=== PATIENT | male | born 1980 | race Caucasian/White ===

== ENCOUNTER 2022-10-28 22:21 | Emergency (ER) | payer BC, SELFPAY ==
--- NOTE | ~2022-10-28 | XR_ITS ---
EXAMINATION: XR chest 2V DATE: 10/28/2022 22:40 INDICATION: Vomiting TECHNIQUE: PA and lateral views of the chest were obtained. COMPARISON: Chest radiograph dated 08/22/2018 FINDINGS: The lungs are clear with no focal airspace opacities, pulmonary edema, pleural effusion or pneumothor ax. The cardiomediastinal silhouette is normal. Visualized bones and soft tissues are unremarkable. IMPRESSION: 1. No acute cardiopulmonary disease. Reviewed, dictated and finalized at location A.
--- NOTE | ~2022-10-28 | CT_ITS ---
EXAMINATION: CT abdomen pelvis w con DATE: 10/29/2022 03:01 INDICATION: Abdominal pain. TECHNIQUE: Computed tomography (CT) of the abdomen and pelvis was performed with 100 mL Omnipaque 350 intravenous contrast. Automated exposure control and iterative reconstruction technique were employe d. The dose-length product was 1148.34 mGy-cm. COMPARISON: None. FINDINGS: The visualized portions of the lung bases demonstrate mild atelectasis. No pleural effusion . The heart size is normal. There are coronary artery calcifications. There is an old infarct in left ventricle of the heart in the expected distribution of left anterior descending coronary artery. The liver and spleen are normal. There is a 6 mm benign polyp versus gallstone in the gallbladder, which is normal in size. The pancreas, adrenal glands, and kidneys are normal. There are no dilated loops of bowel. The appendix is normal. There are no pathologically enlarged lymph nodes. There is no free intraperitoneal fluid. There is mild thoracic spondylosis and moderate lower lumbar spondylosis. IMPRESSION: 1. No specific etiology for the patient's symptoms. 2. 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 Reviewed, dictated and finalized at location A. IMPRESSION: 1. No specific etiology for the patient's symptoms. 2. Old infarct in left ventricle of the heart in the expected distribution of l eft anterior descending coronary.
--- NOTE | 2022-10-28 22:22 | ECG_ITS ---
Measurements Intervals [place] Rate: 94 P: 22 AL: 171 QRS: 34 QRSD: 86 T: 63 QT: 331 QTc: 414 Interpretive Statements SINUS RHYTHM POSSIBLE LEFT ATRIAL ENLARGEMENT [-0.1mV P-WAVE IN V1/V2] EVIDENCE OF PREVIOUS ANTERIOR INFARCTION ABNORMAL ECG NO PREVIOUS ECG AVAILABLE FOR COMPARISON Electronically Signed On 10-29-2022 14:42:10 CDT by Blaze Davis M.D.
[2022-10-28 22:39] LABS: Basophils Absolute Auto 0.1 K/mm3 (0.0-0.1); Basophils Percent Auto 0.8 % (0.2-1.2); Eosinophils Absolute Auto 0.1 K/mm3 (0-0.3); Eosinophils Percent Auto 0.9 % (0-4.4); Hematocrit 42.6 % (42.0-52.0); Hemoglobin 15.1 g/dL (14.0-18.0); Immature Granulocyte Absolute 0.05 K/mm3 (0.00-0.031); Immature Granulocyte Percent A 0.4 % (0-0.5); Lymphocytes Absolute Auto 3.62 K/mm3 (0.9-3.2); Lymphocytes Percent Auto 26.8 % (18.3-44.2); Mean Corpuscular HGB Conc 35.4 g/dl (32-36); Mean Corpuscular Volume 84.5 fl (80-100); Mean Platelet Volume 11.5 fl (7.4-10.4); Monocytes Percent Auto 7.1 % (2.6-8.5); Neutrophils Absolute Auto 8.6 K/mm3 (1.3-6.7); Platelet Count Result 270 k/mm3 (150-375); Red Blood Count 5.04 M/mm3 (4.6-6.20); Red Cell Distribution Width 12.9 % (11.5-14.5); White Blood Count 13.5 K/mm3 (4.5-10.0)
[2022-10-28 22:42] VITALS: BP 137/98; PULSE 94; RESP 16; TEMP 36.2; O2SAT 96
[2022-10-28 22:54] LABS: Partial Thromboplastin Time 25.2 SECONDS (22.3-36.8); Prothrombin Time 13.1 Seconds (11.1-14.7)
[2022-10-28 22:59] LABS: Alanine Aminotransferase 29 U/L (6-50); Albumin Level 4.1 g/dL (3.5-5.1); Alkaline Phosphatase 95 U/L (38-126); Anion Gap 6 mmol/L (8-16); Aspartate Amino Transferase 33 U/L (17-59); Bilirubin,Total 0.6 mg/dL (0.2-1.3); Blood Urea Nitrogen 23 mg/dL (9-20); Calcium 8.6 mg/dL (8.4-10.2); Carbon Dioxide 23 mmol/L (22-30); Chloride 100 mmol/L (98-107); Estimated CRCL calculation 102 ml/min; Estimated Glomerular Filt Rate > 60; Glucose 444 mg/dL (65-110); Lipase 138 U/L (23-300); Potassium 4.1 mmol/L (3.4-5.0); Sodium 129 mmol/L (137-145); Troponin I < 0.012 ng/mL (0.000-0.034)
[2022-10-29] VITALS (21 sets, daily range): BP systolic 128–139; BP diastolic 77–89; PULSE 80–90; RESP 13–23; TEMP 36.7; O2SAT 92–99
--- NOTE | 2022-10-29 02:30 | ED.ABDPAIN ---
HPI - Abdominal Pain General Chief Complaint: Abdominal Pain Stated Complaint: abd pain Time Seen by Provider: 10/29/22 02:02 History of Present Illness HPI narrative: 42-year-old male with history of coronary disease presented the emergency department for evaluation of epigastric abdominal pain. Patient reports the pain started approximately 5 hours ago and last about an hour. Patient was driving when the pain started. Patient states this did cause him to have some nausea and vomiting. Nausea and vomiting did not improve the pain. Patient denies any radiation of the pain to his back jaw or arms. Patient denies any pain at this time. Patient reports approximate 4 years ago he had a heart attack and does have stents in place Related Data Home Medications Medication Instructions Recorded Confirmed aspirin 81 mg tablet,delayed 81 mg PO DAILY 01/17/19 01/08/22 release (Adult Aspirin Regimen) ticagrelor 90 mg tablet (Brilinta) 90 mg PO BID 01/17/19 01/08/22 sacubitril 49 mg-valsartan 51 mg 1 tablet PO BID 01/22/19 01/08/22 tablet (Entresto) Allergies Allergy/AdvReac Type Severity Reaction Status Date / Time No Known Allergies Allergy Verified 10/28/22 22:44 Review of Systems Review of Systems: All systems reviewed & are unremarkable except as noted in HPI and below PMFSH Past Medical History Medical History (Updated 10/30/22 @ 00:00 by Jennifer Jennings) Broken wrist CHF (congestive heart failure) Coronary stent patent Hyperlipidemia Hypertension Obesity Type 2 diabetes mellitus Surgical History Surgical History Coronary angioplasty status History of toe surgery Family History Family History Father Diabetes mellitus Hypertension Family history of cardiovascular disease Family history of coronary artery disease Mother Diabetes mellitus Hypertension Family history of cardiovascular disease Family history of coronary artery disease Father Heart disease Mother Heart disease Social History Social History (Updated 01/08/22 @ 11:01 by Keshia Adhikari PA-C) Smoking status: Current some day smoker Tobacco type: cigars Second hand tobacco smoke exposure: Yes Additional smoking assessment comments: Patient stated he only smokes this selin once in a while. Alcohol intake: current Alcohol use details: Patient stated drinks only on occasion. Substance use: never Substance use type: does not use Lack of Transportation: No Lack of Food: Never True Current Housing: I Have Housing Concerned About Future Housing: No Difficulty Paying Gas/Electric Bills: No Difficulty Paying for Meds: No Currently Unemployed: No Education: High School Diploma/GED Difficulty w/ Childcare or Family Care: No Living arrangements: with family Exam Narrative: APPEARANCE: Well appearing, no pain, no distress, well-nourished. HEAD: normocephalic, atraumatic. EYES: PERRLA/EOMI, conjunctivae clear. NOSE: Normal no drainage EARS:TMS clear with good light reflex. THROAT: Pharynx clear, no exudate. NECK: Supple. No adenopathy, no masses. RESPIRATORY: Airway patent, respirations nonlabored. Clear to auscultation bilaterally, no rales, rhonchi, wheezing. CARDIOVASCULAR: Regular rate and rhythm without murmurs rubs or gallops. ABDOMINAL: Soft, nontender, nondistended, normal bowel sounds MUSCULOSKELETAL: Moves all extremities. Strength/ROM intact, No edema, No calf tenderness. NEURO: Alert. Cranial nerves II through XII intact. Grossly intact SKIN: Warm, dry. Normal Color Course Course Emergency Course: 42-year-old male presented the ED for evaluation of epigastric pain. Patient was afebrile with no leukocytosis. Patient's troponin was not elevated. Patient had no significant abnormalities on his CMP. Patient was hyperglycemic and hyponatremic. Patient was
[2022-10-29 02:51] LABS: Troponin I < 0.012 ng/mL (0.000-0.034)
[2022-10-29] MEDS: LACTATED RINGERS 1,000 ML 999 ML IV CONT (03:13)
[2022-10-29 06:01] LABS: Glucose Point of Care 320 mg/dl (65-105)
[2022-10-29] MEDS: INSULIN HUMAN REGULAR (*BKC) 100 UNITS/ML IV PUSH (06:02)
== END 2022-10-29 06:40 | disposition home or self-care (01) ==
PROVIDERS: Emergency Provider Emergency Medicine; PCP Family Medicine
DX: R10.13 Epigastric pain (principal); I25.10 Atherosclerotic heart disease of native coronary artery without angina pectoris; I25.2 Old myocardial infarction; I50.9 Heart failure, unspecified; I11.0 Hypertensive heart disease with heart failure; E11.9 Type 2 diabetes mellitus without complications; E78.5 Hyperlipidemia, unspecified; E66.9 Obesity, unspecified; Z68.35 Body mass index [BMI] 35.0-35.9, adult; F17.290 Nicotine dependence, other tobacco product, uncomplicated; Z95.5 Presence of coronary angioplasty implant and graft; R94.31 Abnormal electrocardiogram [ECG] [EKG]; Z79.4 Long term (current) use of insulin; Z79.84 Long term (current) use of oral hypoglycemic drugs; Z79.82 Long term (current) use of aspirin
CPT/HCPCS: 36415; 71046; 74177; 80053; 82948; 83690; 84484; 85025; 85610; 85730; 93005; 96361; 96374; 99284; J1815; J7120; Q9967

== ENCOUNTER 2023-09-02 14:08 | Outpatient (CLI) | payer BC, SELFPAY ==
[2023-09-02 14:37] LABS: Basophils Absolute Auto 0.1 K/mm3 (0.0-0.1); Basophils Percent Auto 0.6 % (0.2-1.2); Eosinophils Absolute Auto 0.1 K/mm3 (0-0.3); Eosinophils Percent Auto 1.2 % (0-4.4); Hematocrit 38.5 % (42.0-52.0); Hemoglobin 13.1 g/dL (14.0-18.0); Immature Granulocyte Absolute 0.02 K/mm3 (0.00-0.031); Immature Granulocyte Percent A 0.2 % (0-0.5); Lymphocytes Absolute Auto 3.08 K/mm3 (0.9-3.2); Lymphocytes Percent Auto 37.6 % (18.3-44.2); Mean Corpuscular Hemoglobin 29.5 pg (26-34); Mean Corpuscular Volume 86.7 fl (80-100); Mean Platelet Volume 11.7 fl (7.4-10.4); Monocytes Absolute Auto 0.8 K/mm3 (0.1-0.6); Monocytes Percent Auto 9.5 % (2.6-8.5); Neutrophils Absolute Auto 4.2 K/mm3 (1.3-6.7); Neutrophils Percent Auto 50.9 % (45.5-73.1); Platelet Count Result 216 k/mm3 (150-375); Red Blood Count 4.44 M/mm3 (4.6-6.20); Red Cell Distribution Width 12.7 % (11.5-14.5); White Blood Count 8.2 K/mm3 (4.5-10.0)
[2023-09-02 14:52] LABS: Alanine Aminotransferase 18 U/L (6-50); Albumin Level 3.9 g/dL (3.5-5.1); Alkaline Phosphatase 65 U/L (38-126); Anion Gap 7 mmol/L (4-12); Aspartate Amino Transferase 24 U/L (17-59); Bilirubin,Total 0.6 mg/dL (0.2-1.3); Blood Urea Nitrogen 31 mg/dL (9-20); Calcium 8.5 mg/dL (8.4-10.2); Carbon Dioxide 23 mmol/L (22-30); Chloride 111 mmol/L (98-107); Cholesterol 131 mg/dL (0-200); Estimated Glomerular Filt Rate > 60; Glucose 237 mg/dL (65-110); HDL Direct 30 mg/dL; Potassium 4.2 mmol/L (3.4-5.0); Sodium 141 mmol/L (137-145); Triglycerides 197 mg/dL (<150)
[2023-09-02 14:53] LABS: Hemoglobin A1C 10.5 % (<5.7)
[2023-09-02 15:03] LABS: Creatinine Urine 168.7 mg/dL
[2023-09-02 15:03] LABS: LDL Cholesterol Direct 83 mg/dL
[2023-09-02 15:54] LABS: MALB Creatinine Ratio 566.2 mg/g (0-30)
== END 2023-09-02 14:09 | disposition home or self-care (01) ==
LOC: ANHLAB 14:09
PROVIDERS: PCP Family Medicine; Visit Provider Student in an Organized Health Care Education/Training Program
DX: E11.9 Type 2 diabetes mellitus without complications (principal); E78.5 Hyperlipidemia, unspecified
CPT/HCPCS: 36415; 80053; 80061; 82043; 83036; 85025

== ENCOUNTER 2023-10-13 09:23 | Outpatient (CLI) | payer BC, SELFPAY ==
[2023-10-13 10:30] LABS: Basophils Absolute Auto 0.1 K/mm3 (0.0-0.1); Basophils Percent Auto 0.8 % (0.2-1.2); Eosinophils Absolute Auto 0.1 K/mm3 (0-0.3); Eosinophils Percent Auto 1.1 % (0-4.4); Hematocrit 40.6 % (42.0-52.0); Hemoglobin 13.4 g/dL (14.0-18.0); Immature Granulocyte Absolute 0.03 K/mm3 (0.00-0.031); Immature Granulocyte Percent A 0.3 % (0-0.5); Lymphocytes Absolute Auto 2.63 K/mm3 (0.9-3.2); Lymphocytes Percent Auto 29.8 % (18.3-44.2); Mean Corpuscular Hemoglobin 28.9 pg (26-34); Mean Corpuscular Volume 87.5 fl (80-100); Mean Platelet Volume 10.8 fl (7.4-10.4); Monocytes Absolute Auto 0.8 K/mm3 (0.1-0.6); Monocytes Percent Auto 9.2 % (2.6-8.5); Neutrophils Absolute Auto 5.2 K/mm3 (1.3-6.7); Neutrophils Percent Auto 58.8 % (45.5-73.1); Platelet Count Result 311 k/mm3 (150-375); Red Blood Count 4.64 M/mm3 (4.6-6.20); Red Cell Distribution Width 13.3 % (11.5-14.5); White Blood Count 8.8 K/mm3 (4.5-10.0)
[2023-10-13 10:54] LABS: Alanine Aminotransferase 27 U/L (6-50); Albumin Level 3.9 g/dL (3.5-5.1); Alkaline Phosphatase 64 U/L (38-126); Anion Gap 13 mmol/L (4-12); Aspartate Amino Transferase 33 U/L (17-59); Bilirubin,Total 0.6 mg/dL (0.2-1.3); Blood Urea Nitrogen 33 mg/dL (9-20); Carbon Dioxide 19 mmol/L (22-30); Chloride 110 mmol/L (98-107); Estimated Glomerular Filt Rate > 60; Glucose 63 mg/dL (65-110); Lipase 264 U/L (23-300); Potassium 4.2 mmol/L (3.4-5.0); Sodium 142 mmol/L (137-145)
== END 2023-10-13 09:24 | disposition home or self-care (01) ==
LOC: ANHLAB 09:24
PROVIDERS: PCP Family Medicine; Visit Provider Student in an Organized Health Care Education/Training Program
DX: R10.13 Epigastric pain (principal); E11.9 Type 2 diabetes mellitus without complications; I10 Essential (primary) hypertension; R19.7 Diarrhea, unspecified; R53.83 Other fatigue
CPT/HCPCS: 36415; 80053; 83690; 85025

== ENCOUNTER 2024-04-29 23:19 | Emergency (ER) | payer BC, SELFPAY ==
--- NOTE | ~2024-04-29 | XR_ITS ---
Clinical Indication: Shortness of breath PA and lateral views of the chest: Comparison: 10/28/2022 Findings: There are small right pleural effusion with mild bibasilar pulmonary edema.. Cardiomediast inal silhouette is within normal limits. Bones and soft tissues are unremarkable. Impression: Small right pleural effusion with mild bibasilar pulmonary edema. Reviewed, dictated and finalized at location . STERED TRAVEL NURSE Impression: Small right pleural effusion with mild bibasilar pulmonary edema.
--- OUTSIDE RECORDS SUMMARY | 2024-04-29 23:23 | XMS_ITS | Clinical Summary ---
Author Organization [facility] [address] Address [address] [place] [address] Care Team Providers Care Scientific Systems Analyst Name Role Phone Ynes Azul MD Primary Care Provider [phone]- [phone] Allergies Active Allergy Reactions Criticality Noted Date Comments Alirocumab Rash Medium 06/25/2019 Medications glimepiride (AMARYL) 4 mg tabletIndications: type 2 diabetes mellitus TK 2 TS DAILY 0 9 Active metFORMIN (GLUCOPHAGE) 500 mg tablet TK 2 TS PO QD WITH THE MORNING AND DEE MEAL 0 9 Active sildenafil (VIAGRA) 100 mg tablet TK 1 T PO D PRN 5 9 Active insulin glargine (LANTUS,BASAGLAR) 100 unit/mL (3 mL) insulin pen Inject 50 Units under the skin daily Active aspirin (ENTERIC COATED ASPIRIN) 81 mg enteric coated tablet Take 1 tablet (81 mg total) by mouth daily 9 Active atorvastatin (LIPITOR) 80 mg tablet TAKE 1 TABLET(80 MG) BY MOUTH DAILY 90 tablet 1 2 Active spironolactone (ALDACTONE) 25 mg tablet TAKE 1 TABLET(25 MG) BY MOUTH DAILY 90 tablet 2 2 Active metoprolol XL (TOPROL-XL) 100 mg 24 hr tabletIndications: Ischemic cardiomyopathy Take 1 tablet (100 mg total) by mouth daily 90 tablet 1 2 Active icosapent ethyL (VASCEPA) 1 gram capsule Take 2 capsules (2 g total) by mouth 2 (two) times a day 120 capsule 11 3 Active ezetimibe (ZETIA) 10 mg tablet TAKE 1 TABLET BY MOUTH EVERY DAY AT NIGHT 30 tablet 11 4 Active losartan (COZAAR) 100 mg tablet Take 1 tablet (100 mg total) by mouth daily 30 tablet 2 5 Active losartan (COZAAR) 100 mg tablet TAKE 1 TABLET BY MOUTH EVERY DAY 30 tablet 2 4 025 Discontin ued(Reord er) Active Problems No known active problems Encounters Date Type Department Care Team Description 04/25/2024 1:30 PM CANVAS BASTER Office Visit [facility] Cardiology [address] [place] [address] Duarte Tavarez MD NEGRON (dyspnea on exertion) (Primary Dx); Coronary artery disease involving [place] coronary artery of [place] heart without angina pectoris; History of ST elevation myocardial infarction; Status post angioplasty with stent; Ischemic cardiomyopathy; Exposure to dust 04/23/2024 Telephone [facility] Cardiology [address] [place] [address] Duarte Tavarez MD Leg Swelling; Foot Swelling; Shortness of Breath from Last 3 Months Medical History Medical History Date Comments Hypertension Diabetes mellitus (HCC) Family History Relation Name Status Comments Father (Age 48) Mother Alive Social History Tobacco Use Types Packs/Day Years Used Date Smoking Tobacco: Never Smokeless Tobacco: Never Tobacco Cessation:Counseling Given: Not Answered Sex and Gender Information Value Date Recorded Sex Assigned at Not on file Legal Sex Male 7:09 PM CANVAS BASTER Gender Identity Not on file Sexual Orientation Not on file Obstetrics History Last Filed Vital Signs Vital Sign Reading Time Taken Comments Blood Pressure 132/84 04/25/2024 1:08 PM CANVAS BASTER Pulse 77 04/25/2024 1:08 PM CANVAS BASTER Temperature - - Respiratory Rate 16 06/14/2022 7:59 AM CDT Oxygen Saturation 93% 04/25/2024 1:08 PM CANVAS BASTER Inhaled Oxygen Concentration - - Weight 96.2 kg (212 lb) 04/25/2024 1:08 PM CANVAS BASTER Height 160 cm (5' 3 ) 04/25/2024 1:08 PM CANVAS BASTER Body Mass Index 37.55 04/25/2024 1:08 PM CANVAS BASTER Plan of Treatment Health Maintenance Due Date Last Done Comments Colon Cancer Screening-Colonoscopy 1978 Depression Screening 1978 Hepatitis C Screening 1978 DTaP/Tdap/Td Vaccine (1 - Tdap) 1989 Hepatitis B Screening 02/03/1996 Regular Well Visit/Exam 18-64 02/03/1996 Influenza Vaccine (#1) 2023 HPV Vaccines Aged Out No longer eligi ble based on patient's age to complete this topic Pneumococcal vaccine <65 Aged Out No longer eligible based on patient's age to complete this topic [place] Care Teams Scientific Systems Analyst Relationship Specialty Start Date End Date Ynes Azul MD PCP - General Family Practice 2/21/19
--- OUTSIDE RECORDS SUMMARY | 2024-04-29 23:23 | XMS_ITS | Referral Summary ---
Author Organization [place] [address] [address] [place] [address] [address] [place] [address] Care Team Providers Care Climatology Teacher Name Role Phone Ynes Azul MD Primary Care Provider +1- [phone] Encounters Date Type Department Care Team Description 04/25/2024 1:30 PM SERVICE CENTER COORDINATOR Office Visit [facility] Cardiology [address] [place] [address] [address] [place] [address] Duarte Tavarez MD NEGRON (dyspnea on exertion) (Primary Dx); Coronary artery disease involving [place] coronary artery of [place] heart without angina pectoris; History of ST elevation myocardial infarction; Status post angioplasty with stent; Ischemic cardiomyopathy; Exposure to dust 04/23/2024 Telephone [facility] Cardiology [address] [place] [address] [address] [place] [address] Duarte Tavarez MD Leg Swelling; Foot Swelling; Shortness of Breath from Last 3 Months Allergies Active Allergy Reactions Criticality Noted Date [...] er) Active Problems No known active problems Social History Tobacco Use Types Packs/Day Years Used Date Smoking Tobacco: Never Smokeless Tobacco: Never Tobacco Cessation:Counseling Given: Not Answered Sex and Gender Information Value Date Recorded Sex Assigned at Not on file Legal Sex Male 7:09 PM SERVICE CENTER COORDINATOR Gender Identity Not on file Sexual Orientation Not on file Last Filed Vital Signs Vital Sign Reading Time Taken Comments Blood Pressure 132/84 04/25/2024 1:08 PM SERVICE CENTER COORDINATOR Pulse 77 04/25/2024 1:08 PM SERVICE CENTER COORDINATOR Temperature - - Respiratory Rate 16 06/14/2022 7:59 AM CDT Oxygen Saturation 93% 04/25/2024 1:08 PM SERVICE CENTER COORDINATOR Inhaled Oxygen Concentration - - Weight 96.2 kg (212 lb) 04/25/2024 1:08 PM SERVICE CENTER COORDINATOR Height 160 cm (5' 3 ) 04/25/2024 1:08 PM SERVICE CENTER COORDINATOR Body Mass Index 37.55 04/25/2024 1:08 PM SERVICE CENTER COORDINATOR Plan of Treatment Not on file Insurance [place]ESS [place] Member Subscriber Plan / Payer ( fective 2010-Present) Name:Malcolm Lynne Relation to Subscriber:Self Name:Leroy Lynnehien Armstrong Payer ID:[id number] (NAIC) Type:BC OTHER Address: [address] [place] [id number] Care Teams Climatology Teacher Relationship Specialty Start Date End Date Ynes Azul MD PCP - General Family Practice 04/27/18
--- OUTSIDE RECORDS SUMMARY | 2024-04-29 23:23 | XMS_ITS | Encounter Summary ---
Author Organization [facility] Address [address] [place] [address] Care Team Providers Care Campaign Specialist Name Role Phone Ynes Azul MD Primary Care Provider +1- [phone] Reason for Visit * Reason Onset Date Comments Leg Swelling 04/23/2024 Foot Swelling 04/23/2024 Shortness of Breath 04/23/2024 Encounter Details Date Type Department Care Team (Late st Contact Info) Description 04/23/2024 Telephone [facility] Cardiology [address] [place] [address] Duarte Tavarez MD [address] [id number] Leg Swelling; Foot Swelling; Shortness of Breath Social History Tobacco Use Types Packs/Day Years Used Date Smoking Tobacco: Never Smokeless Tobacco: Never Sex and Gender Information Value Date Recorded Sex Assigned at Not on file Legal Sex Male 7:09 PM MANUFACTURING JOB TITLES Gender Identity Not on file Sexual Orientation Not on file documented as of this encounter Miscellaneous Notes * Telephone Encounter - Ne Mendoza RN - 04/23/2024 2:38 PM MANUFACTURING JOB TITLES Spoke with pt, he has noticed some swelling in his legs and some SOB with exertion for the last fewweeks. Pt is not having any CP or any other concerns at this time. Pt has missed his last few appt and was last seen on 06/2022. Scheduled pt to see DK this week 04/25. FACTURING JOB TITLES * Telephone Encounter - Liliane Viveros - 04/23/2024 2:24 PM CST Pt states that for the past few weeks he has been experiencing edema in his lower extremities. States that he is also experiencing some SOB. Requesting a call back. Please advise. Thank you. Contact [phone] FACTURING JOB TITLES documented in this encounter Plan of Treatment Not on file documented as of this encounter Visit Diagnoses Not on filedocumented in this encounter Care Teams Campaign Specialist Relationship Specialty Start Date End Date Ynes Azul MD PCP - General Family Practice 04/27/18 documented as of this encounter
[2024-04-29 23:29] VITALS: BP 159/92; PULSE 84; RESP 20; TEMP 36.3; O2SAT 92
--- NOTE | 2024-04-29 23:29 | ECG_ITS ---
Test Date: 2024-04-29 23:38:08 Measurements Intervals [place] Rate: 82 P: 22 [place]: 167 QRS: 55 QRSD: 96 T: 68 QT: 361 QTc: 423 Interpretive Statements SINUS RHYTHM POSSIBLE LEFT ATRIAL ENLARGEMENT CONSIDER ANTERIOR INFARCT, AGE INDETERMINATE BORDERLINE T WAVE ABNORMALITY- HIGH LATERAL LEADS BASELINE ARTIFACT- I, III, AVL ABNORMAL ECG No previous ECG available for comparison Electronically Signed On 04-30-2024 06:47:07 PILE DRIVER OPERATOR [employer]GE M[employer] by Surinder Castro D.O.
[2024-04-29 23:46] LABS: Basophils Absolute Auto 0.1 K/mm3 (0.0-0.1); Basophils Percent Auto 0.8 % (0.2-1.2); Eosinophils Absolute Auto 0.2 K/mm3 (0-0.3); Eosinophils Percent Auto 3.4 % (0-4.4); Hematocrit 38.7 % (42.0-52.0); Hemoglobin 13.2 g/dL (14.0-18.0); Immature Granulocyte Absolute 0.01 K/mm3 (0.00-0.031); Immature Granulocyte Percent A 0.2 % (0-0.5); Lymphocytes Absolute Auto 2.26 K/mm3 (0.9-3.2); Lymphocytes Percent Auto 38.2 % (18.3-44.2); Mean Corpuscular HGB Conc 34.1 g/dl (32-36); Mean Corpuscular Hemoglobin 29.4 pg (26-34); Mean Corpuscular Volume 86.2 fl (80-100); Mean Platelet Volume 11.5 fl (7.4-10.4); Monocytes Absolute Auto 0.5 K/mm3 (0.1-0.6); Monocytes Percent Auto 8.6 % (2.6-8.5); Neutrophils Absolute Auto 2.9 K/mm3 (1.3-6.7); Neutrophils Percent Auto 48.8 % (45.5-73.1); Platelet Count Result 214 k/mm3 (150-375); Red Blood Count 4.49 M/mm3 (4.6-6.20); Red Cell Distribution Width 13.6 % (11.5-14.5); White Blood Count 5.9 K/mm3 (4.5-10.0)
[2024-04-29 23:57] LABS: Alanine Aminotransferase 27 U/L (6-50); Albumin Level 3.4 g/dL (3.5-5.1); Alkaline Phosphatase 72 U/L (38-126); Anion Gap 9 mmol/L (4-12); Aspartate Amino Transferase 25 U/L (17-59); Bilirubin,Total 0.8 mg/dL (0.2-1.3); Blood Urea Nitrogen 20 mg/dL (9-20); Calcium 8.7 mg/dL (8.4-10.2); Carbon Dioxide 24 mmol/L (22-30); Chloride 110 mmol/L (98-107); Estimated CRCL calculation 116 ml/min; Estimated Glomerular Filt Rate > 60; Glucose 241 mg/dL (65-110); Potassium 3.9 mmol/L (3.4-5.0); Sodium 143 mmol/L (137-145)
[2024-04-30 00:22] LABS: Influenza A QL RT-PCR Negative (Negative); Influenza B QL RT-PCR Negative (Negative); RSV RNA, RT-PCR Negative (Negative); SARS-CoV-2 RNA PCR Negative (Negative)
[2024-04-30 05:00] VITALS: PULSE 80
[2024-04-30 05:01] VITALS: O2SAT 96
[2024-04-30 05:02] VITALS: BP 136/86; PULSE 80; RESP 20; TEMP 36.6; O2SAT 96
[2024-04-30 05:22] LABS: NT Pro B Type Natriuretic Pept 1160 pg/mL (19.9-100)
--- NOTE | 2024-04-30 05:30 | ED_ITS ---
HPI - SOB/Dyspnea General Chief Complaint: Shortness of Breath/Dyspnea Stated Complaint: chf exac, legs swelling, diff breathing Time Seen by Provider: 04/30/24 05:16 History of Present Illness HPI Narrative: 44-year-old male with a past medical history including congestive heart failure, previous OK with stent, insulin-dependent diabetes. Today presents to the emergency room with his family member for concerns of difficulty in breathing and dry cough for last 2 days. Feeling significantly orthopneic at home and difficulty lying flat which is not usual for him. He has a history of heart failure on multiple medications including spironolactone, Entresto and also insulin for his diabetes. Has previously been on diuretic therapy including Lasix but that was over a year ago during his previous heart attack. He is denying any chest pain or chest pressure. Some swelling in his legs that is worsened over the last few days but improved with elevation. Denies any shortness of breath right now or any chest pain or pressure. No back pain, nausea, vomiting abdominal pain, fever, chills. Cough is nonproductive. Was otherwise in his normal state of health recently. Related Data Home Medications ?Medication ?Instructions ?Recorded ?Confirmed ?Last Taken ?Type aspirin 81 mg tablet,delayed 81 mg PO DAILY 01/17/19 10/13/23 Unknown History release (Adult Aspirin Regimen) ticagrelor 90 mg tablet (Brilinta) 90 mg PO BID 01/17/19 10/13/23 Unknown History sacubitril 49 mg-valsartan 51 mg 1 tablet PO BID 01/22/19 10/13/23 Unknown History tablet (Entresto) Allergies Allergy/AdvReac Type Severity Reaction Status Date / Time No Known Allergies Allergy Verified 04/30/24 05:03 Review of Systems 2 Review of Systems: As reviewed above in HPI [facility] Past Medical History Medical History (Updated 04/30/24 @ 05:37 by Carlos Gaffney MD) CHF (congestive heart failure) Obesity Hypertension Type 2 diabetes mellitus Hyperlipidemia Broken wrist Coronary stent patent Surgical History Surgical History History of toe surgery Coronary angioplasty status Family History Family History Father Diabetes mellitus Hypertension Family history of cardiovascular disease Family history of coronary artery disease Mother Diabetes mellitus Hypertension Family history of cardiovascular disease Family history of coronary artery disease Father Heart disease Mother Heart disease Social History Social History Smoking status: Current some day smoker Tobacco type: cigars (special occasions, does not smoke every week) Second hand tobacco smoke exposure: Yes Additional smoking assessment comments: Patient stated he only smokes this selin once in a while. Alcohol intake: current Alcohol use details: Patient stated drinks only on occasion. Substance use: never Substance use type: does not use Lack of Transportation: No Lack of Food: Never True Current Housing: I Have Housing Concerned About Future Housing: No Difficulty Paying Gas/Electric Bills: No Difficulty Paying for Meds: No Currently Unemployed: No Education: High School Diploma/GED Difficulty w/ Childcare or Family Care: No Living arrangements: with family Course Course Emergency Course: GENERAL: [Well-appearing, well-nourished, and in no acute distress.] HEAD: [Normocephalic, atraumatic.] EYES: [PERRLA and EOMI.] ENT: Nares clear, no rhinorrhea or epistaxis. Mucous membranes moist. NECK: Supple. CHEST: [Clear to auscultation. No respiratory distress.] HEART: [Regular rate and rhythm]. No murmur heard. [Normal peripheral pulses.] ABDOMEN: [Soft, nondistended], [nontender], [No rigidity or guarding] EXTREMITIES: Normal range of motion. 1+ pitting edema bilaterally and symmetric. No overlying skin changes. SKIN: Warm, dry, no rash. NEURO: [No focal deficits]. Alert and oriented [x3.] PSYCH: [Normal mood and affect.] Vital Signs Vital signs: Vital Signs Temperature 36.3 C L 04/29/24 23:29 Pulse Rate 84 04/29/24 23:29 Respiratory Rate 20 04/29/24 23:29 Blood Pressure 159/92 H 04/29/24 23:29 Pulse Oximetry 92 04/29/24 23:29 Temperature 36.6 C 04/30/24 05:02 Pulse Rate 80 04/30/24 05:02 Respiratory Rate 20 04/30/24 05:02 Blood Pressure 136/86 04/30/24 05:02 Pulse Oximetry 96 04/30/24 05:02 Oxygen Delivery Room Air 04/30/24 05:01 MDM - SOB/Dyspnea MDM Narrative Medical decision making narrative: 44-year-old male with a past medical history including CHF, insulin-dependent diabetes, hypertension, previous OK with stent. He presents to the emergency department chief complaint of orthopnea and worsening swelling in his legs for last 2 days associated with dry cough. He is otherwise well-appearing, not any acute distress, has normal vital signs without any hypoxia, significant hypertension or any tachycardia. He has mild pitting edema bilaterally which he states has gone down with some elevation. Mostly clear breath sounds without any coarse rhonchi or rales. Suspicion presently is for minor CHF exacerbation versus infectious process such as pneumonia versus infiltrates. Possibility for viral syndrome such as COVID or influenza given the season and exposure to the healthcare system. Low suspicion ACS. Workup was ordered including an EKG, two-view chest x-ray, BNP, CBC, CMP. Patient was given 40 mg of IV Lasix. Workup shows no leukocytosis or significant anemia. Normal platelet comfort. Electrolytes were largely unremarkable. Normal potassium. Normal BUN and creatinine, slightly hyperglycemic but he has insulin-dependent diabetes. Normal LFTs. BNP elevated at 1160 indicative of a minor CHF exacerbation. Negative COVID flu and RSV. Chest x-ray shows pulmonary edema but no signs of pneumonia or pneumothorax. Patient had improvement with symptom control after diuresis and we will start him on Lasix 20 mg b.i.d. and have him follow-up with his doctor. He has an upcoming cardiology appointment this week and upcoming echocardiogram also scheduled. Patient and family were comfortable with this plan of care and stable for discharge. Medical Records Attestation: I reviewed the patient's medical records. Lab Data Attestation: I reviewed the patient's lab results. 04/29/24 23:39 04/29/24 23:39 Labs: Lab Results 04/29/24 Range/Units 23:39 WBC 5.9 (4.5-10.0) K/mm3 RBC 4.49 L (4.6-6.20) M/mm3 Hgb 13.2 L (14.0-18.0) g/dL Hct 38.7 L (42.0-52.0) % MCV 86.2 (80-100) fl MCH 29.4 (26-34) pg MCHC 34.1 (32-36) g/dl RDW 13.6 (11.5-14.5) % Plt Count 214 (150-375) k/mm3 MPV 11.5 H (7.4-10.4) fl Immature Gran % (Auto) 0.2 (0-0.5) % Neut % (Auto) 48.8 (45.5-73.1) % Lymph % (Auto) 38.2 (18.3-44.2) % [place] % (Auto) 8.6 H (2.6-8.5) % Eos % (Auto) 3.4 (0-4.4) % Baso % (Auto) 0.8 (0.2-1.2) % Lymph # (Auto) 2.26 (0.9-3.2) K/mm3 [place] # (Auto) 0.5 (0.1-0.6) K/mm3 Eos # (Auto) 0.2 (0-0.3) K/mm3 Baso # (Auto) 0.1 (0.0-0.1) K/mm3 Abs Immat Gran (auto) 0.01 (0.00-0.031) K/mm3 Absolute Neuts (auto) 2.9 (1.3-6.7) K/mm3 Absolute Nucleated RBC 0.000 (0.0-0.012) K/mm3 Nucleated RBC % 0.0 (0.0-0.2) % Sodium 143 (137-145) mmol/L Potassium 3.9 (3.4-5.0) mmol/L Chloride 110 H (98-107) mmol/L Carbon Dioxide 24 (22-30) mmol/L Anion Gap 9 (4-12) mmol/L BUN 20 D (9-20) mg/dL Creatinine 0.71 (0.7-1.3) mg/dL Estim Creat Clear Calc 116 ml/min Estimated GFR > 60 (59 - ) Glucose 241 H (65-110) mg/dL Calcium 8.7 (8.4-10.2) mg/dL Total Bilirubin 0.8 (0.2-1.3) mg/dL AST 25 (17-59) U/L ALT 27 (6-50) U/L Alkaline Phosphatase 72 (38-126) U/L NT-Pro-B Natriuret Pep 1160 H (19.9-100) pg/mL Total Protein 7.0 (6.3-8.2) g/dL Albumin 3.4 L (3.5-5.1) g/dL Influenza A (RT-PCR) Negative (Negative) Influenza B (RT-PCR) Negative (Negative) RSV (RT-PCR) Negative (Negative) SARS-CoV-2 RNA (RT-PCR) Negative (Negative) Imaging Data Attestation: I personally reviewed and interpreted this imaging study as follows: My impression: Mild pulmonary edema, no signs of pneumonia. ECG Data EKG #1: Attestation: I personally reviewed and interpreted this ECG as follows: ECG completion date: 04/30/24 ECG completion time: 23:38 Prior ECG tracings: not available for review Interpretation: No ST segment elevations, depressions or inversions. Sinus rhythm without any ectopy. Prominent P waves but otherwise largely unremarkable EKG. Normal intervals including NE interval 167, QRS 94, QTC 423 milliseconds. Regular rate, rhythm and axis. Normal sinus rhythm final interpretation. Discharge Plan Discharge Clinical Impression: Mild congestive heart failure, Orthopnea, Dependent edema Patient Disposition: Home, Self-Care Condition: Stable Instructions: Antibiotic Form, Furosemide (By mouth), Heart Failure (ED), Pulmonary Edema (ED), Leg Edema (ED) Additional Instructions: Your workup today shows mild fluid on her lungs and legs consistent with a mild CHF exacerbation. We will send you home with regimen including Lasix to add to your normal blood pressure and heart medications at home. Take this medication twice daily until being seen by her diffusion furnace operator. This will help you urinate and get the fluid off of your lungs and legs and should help with the difficulty lying flat and shortness of breath. If you have any worsening or new symptoms or have any new concerns please return to the emergency department otherwise follow-up with your regular doctors appointments and diffusion furnace operator outpatient. Patient Language: Ukrainian Prescriptions: New furosemide [Lasix] 20 mg tablet 20 mg PO BID Qty: 30 0RF No Action Entresto 49-51 mg tablet 1 tablet PO BID ciprofloxacin HCl 500 mg tablet 500 mg PO Q12H Qty: 14 0RF gabapentin 300 mg capsule 300 mg PO QHS Qty: 90 3RF omeprazole 20 mg capsule,delayed release(DR/EC) 20 mg PO DAILY Qty: 60 0RF aspirin [Adult Aspirin Regimen] 81 mg tablet,delayed release (DR/EC) 81 mg PO DAILY Brilinta 90 mg tablet 90 mg PO BID (DME) Advocate Test Strips Strip See Rx Instructions .ROUTE .MEDSUPPLY Qty: 300 5RF Rx Instructions: TID As directed to check blood sugar (DME) blood-glucose meter [Blood Glucose Monitoring] Kit See Rx Instructions .ROUTE .MEDSUPPLY Qty: 1 0RF Rx Instructions: TID As directed to check blood sugar (DME) lancets [BD Ultra Fine Lancets] 33 gauge misc See Rx Instructions .ROUTE .MEDSUPPLY Qty: 300 5RF Rx Instructions: TID As directed to check blood sugar (DME) pen needle, diabetic [1st Tier Unifine Pentips] 31 gauge x 3/16 needle See Rx Instructions .ROUTE .MEDSUPPLY Qty: 300 4RF Rx Instructions: use daily for lantus injection As directed sildenafil 100 mg tablet 100 mg PO DAILY PRN (Reason: sexual activity) Qty: 18 11RF Rx Instructions: administer 30 minutes to 4 hours before activity metoprolol succinate 50 mg tablet extended release 24 hr 75 mg PO DAILY Qty: 135 3RF glimepiride 4 mg tablet 8 mg PO QAM Qty: 180 3RF atorvastatin 80 mg tablet 80 mg PO DAILY Qty: 90 3RF Jardiance 10 mg tablet 10 mg PO DAILY Qty: 30 0RF Cholestyramine Light 4 gram powder 4 g PO DAILY Qty: 201.6 0RF Rx Instructions: administer w/meal; avoid other meds within 1hr before or 4-6hr after dose insulin glargine [Basaglar KwikPen U-100 Insulin] 100 unit/mL (3 mL) insulin pen 50 unit subcut QAM Qty: 45 3RF spironolactone 25 mg tablet 25 mg PO DAILY Qty: 90 1RF metformin 500 mg tablet See Rx Instructions .ROUTE .COMPLEX Qty: 360 1RF Dose Instruction: TAKE 2 TABLETS BY MOUTH TWICE DAILY WITH MEALS Rx Instructions: TAKE 2 TABLETS BY MOUTH TWICE DAILY WITH MEALS Follow-up/Referrals: Ne Tompkins MD [Primary Care Provider] - Time of Disposition: 05:37
[2024-04-30] MEDS: FUROSEMIDE INJ 40 MG/4 ML VIAL IV PUSH (05:37)
--- OUTSIDE RECORDS SUMMARY | 2024-04-30 05:45 | XMS_ITS | Encounter Summary ---
Author Organization [facility] Healthcare Address [address] [place] [address] Care Team Providers Care Blue Print Control Clerk Name Role Phone Ynes Azul MD Primary Care Provider +1- [phone] Reason for Visit * Reason Onset Date Comments Leg Swelling 04/23/2024 Foot Swelling 04/23/2024 Shortness of Breath 04/23/2024 Encounter Details Date Type Department Care Team (Late st Contact Info) Description 04/23/2024 Telephone [facility] Medical Group Cardiology [address] [place] [address] Duarte Tavarez MD [address] [place] [id number] Leg Swelling; Foot Swelling; Shortness of Breath Social History Tobacco Use Types Packs/Day Years Used Date Smoking Tobacco: Never Smokeless Tobacco: Never Sex and Gender Information Value Date Recorded Sex Assigned at Not on file Legal Sex Male 7:09 PM JIG GRINDER SET UP OPERATOR Gender Identity Not on file Sexual Orientation Not on file documented as of this encounter Miscellaneous Notes * Telephone Encounter - Ne Mendoza RN - 04/23/2024 2:38 PM JIG GRINDER SET UP OPERATOR Spoke with pt, he has noticed some swelling in his legs and some SOB with exertion for the last fewweeks. Pt is not having any CP or any other concerns at this time. Pt has missed his last few appt and was last seen on 06/2022. Scheduled pt to see DK this week 04/25. GRINDER SET UP OPERATOR * Telephone Encounter - Liliane Viveros - 04/23/2024 2:24 PM CST Pt states that for the past few weeks he has been experiencing edema in his lower extremities. States that he is also experiencing some SOB. Requesting a call back. Please advise. Thank you. Contact [phone] GRINDER SET UP OPERATOR documented in this encounter Plan of Treatment Not on file documented as of this encounter Visit Diagnoses Not on filedocumented in this encounter Care Teams Blue Print Control Clerk Relationship Specialty Start Date End Date Ynes Azul MD PCP - General Family Practice 04/27/18 documented as of this encounter
--- OUTSIDE RECORDS SUMMARY | 2024-04-30 05:45 | XMS_ITS | Referral Summary ---
Author Organization [place] [address] Address [address] [place] [address] [address] [place] [address] Care Team Providers Care Push Button Switch Assembler Name Role Phone Ynes Azul MD Primary Care Provider +1- [phone] Encounters Date Type Department Care Team Description 04/25/2024 1:30 PM SOFTWARE TEST ANALYST Office Visit [facility] Medical [facility] Cardiology [address] [place] [address] [address] [place] [address] Duarte Tavarez MD NEGRON (dyspnea on exertion) (Primary Dx); Coronary artery disease involving [place] coronary artery of [place] heart without angina pectoris; History of ST elevation myocardial infarction; Status post angioplasty with stent; Ischemic cardiomyopathy; Exposure to dust 04/23/2024 Telephone [facility] Cardiology [address] [place] [address] [address] [place] [address] Duarte Tavarez MD Leg Swelling; [...] on file Legal Sex Male 7:09 PM SOFTWARE TEST ANALYST Gender Identity Not on file Sexual Orientation Not on file Last Filed Vital Signs Vital Sign Reading Time Taken Comments Blood Pressure 132/84 04/25/2024 1:08 PM SOFTWARE TEST ANALYST Pulse 77 04/25/2024 1:08 PM SOFTWARE TEST ANALYST Temperature - - Respiratory Rate 16 06/14/2022 7:59 AM CDT Oxygen Saturation 93% 04/25/2024 1:08 PM SOFTWARE TEST ANALYST Inhaled Oxygen Concentration - - Weight 96.2 kg (212 lb) 04/25/2024 1:08 PM SOFTWARE TEST ANALYST Height 160 cm (5' 3 ) 04/25/2024 1:08 PM SOFTWARE TEST ANALYST Body Mass Index 37.55 04/25/2024 1:08 PM SOFTWARE TEST ANALYST Plan of Treatment Not on file [place] Member Subscriber Plan / Payer ( fective 2010-Present) Name:Malcolm Lynne Relation to Subscriber:Self Name:Leroy Lynnehien Armstrong Payer ID:[id number] (NAIC) Type:BC OTHER Address: [address] [place] [id number] Care Teams Push Button Switch Assembler Relationship Specialty Start Date End Date Ynes Azul MD PCP - General Family Practice 04/27/18
--- OUTSIDE RECORDS SUMMARY | 2024-04-30 05:45 | XMS_ITS | Clinical Summary ---
Author Organization [facility] [address] Address [address] [place] [address] Care Team Providers Care Military Equipment Specialist Name Role Phone Ynes Azul MD Primary Care Provider +1- [phone] Allergies Active Allergy Reactions Criticality Noted Date [...] Department Care Team Description 04/25/2024 1:30 PM PRESS OPERATOR APPRENTICE Office Visit [facility] Medical Group Cardiology [address] [place] [address] Duarte Tavarez MD NEGRON (dyspnea on exertion) (Primary Dx); Coronary artery disease involving apache coronary artery of apache heart without angina pectoris; History of ST elevation myocardial infarction; Status post angioplasty with stent; Ischemic cardiomyopathy; Exposure to dust 04/23/2024 Telephone [facility] Cardiology [address] [place] [address] Duarte Tavarez MD Leg Swelling; [...] on file Legal Sex Male 7:09 PM PRESS OPERATOR APPRENTICE Gender Identity Not on file Sexual Orientation Not on file Obstetrics History Last Filed Vital Signs Vital Sign Reading Time Taken Comments Blood Pressure 132/84 04/25/2024 1:08 PM PRESS OPERATOR APPRENTICE Pulse 77 04/25/2024 1:08 PM PRESS OPERATOR APPRENTICE Temperature - - Respiratory Rate 16 06/14/2022 7:59 AM CDT Oxygen Saturation 93% 04/25/2024 1:08 PM PRESS OPERATOR APPRENTICE Inhaled Oxygen Concentration - - Weight 96.2 kg (212 lb) 04/25/2024 1:08 PM PRESS OPERATOR APPRENTICE Height 160 cm (5' 3 ) 04/25/2024 1:08 PM PRESS OPERATOR APPRENTICE Body Mass Index 37.55 04/25/2024 1:08 PM PRESS OPERATOR APPRENTICE Plan of Treatment Health Maintenance Due Date [...] patient's age to complete this topic Insurance [employer] [place] [employer] Care Teams Military Equipment Specialist Relationship Specialty Start Date End Date Ynes Azul MD PCP - General Family Practice 2/21/19
== END 2024-04-30 06:34 | disposition home or self-care (01) ==
LOC: ANHED 04-30 05:43
PROVIDERS: Physician Assistant; Emergency Provider Student in an Organized Health Care Education/Training Program; PCP Family Medicine
DX: I50.9 Heart failure, unspecified (principal); Z20.822 Contact with and (suspected) exposure to COVID-19; I25.2 Old myocardial infarction; I11.0 Hypertensive heart disease with heart failure; E11.9 Type 2 diabetes mellitus without complications; E78.5 Hyperlipidemia, unspecified; F17.290 Nicotine dependence, other tobacco product, uncomplicated; Z95.5 Presence of coronary angioplasty implant and graft; Z79.4 Long term (current) use of insulin; Z79.899 Other long term (current) drug therapy; Z79.02 Long term (current) use of antithrombotics/antiplatelets; Z79.84 Long term (current) use of oral hypoglycemic drugs; R94.31 Abnormal electrocardiogram [ECG] [EKG]
CPT/HCPCS: 36415; 71046; 80053; 83880; 85025; 87637; 93005; 96374; 99284; J1940

== ENCOUNTER 2024-05-02 14:40 | Outpatient (CLI) | payer BC, SELFPAY ==
--- OUTSIDE RECORDS SUMMARY | 2024-05-02 17:00 | XMS_ITS | Encounter Summary ---
Author Organization [facility] Healthcare Address [address] [place] [address] Care Team Providers Care Box Builder Name Role Phone Ynes Azul MD Primary Care Provider +1- [phone] Reason for Visit * Reason Onset Date Comments Leg Swelling 04/23/2024 Foot Swelling 04/23/2024 Shortness of Breath 04/23/2024 Encounter Details Date Type Department Care Team (Late st Contact Info) Description 04/23/2024 Telephone [facility] Medical Group Cardiology [address] [place] [address] Duarte Tavarez MD [address] [place] [id number] Leg Swelling; Foot Swelling; Shortness of Breath Social History Tobacco Use Types Packs/Day Years Used Date Smoking Tobacco: Never Smokeless Tobacco: Never Sex and Gender Information Value Date Recorded Sex Assigned at Not on file Legal Sex Male 7:09 PM PHLEBOTOMIST SUPERVISOR/INSTRUCTOR Gender Identity Not on file Sexual Orientation Not on file documented as of this encounter Miscellaneous Notes * Telephone Encounter - Ne Mendoza RN - 04/23/2024 2:38 PM PHLEBOTOMIST SUPERVISOR/INSTRUCTOR Spoke with pt, he has noticed some swelling in his legs and some SOB with exertion for the last fewweeks. Pt is not having any CP or any other concerns at this time. Pt has missed his last few appt and was last seen on 06/2022. Scheduled pt to see DK this week 04/25. BOTOMIST SUPERVISOR/INSTRUCTOR * Telephone Encounter - Liliane Viveros - 04/23/2024 2:24 PM CST Pt states that for the past few weeks he has been experiencing edema in his lower extremities. States that he is also experiencing some SOB. Requesting a call back. Please advise. Thank you. Contact [phone] BOTOMIST SUPERVISOR/INSTRUCTOR documented in this encounter Plan of Treatment Not on file documented as of this encounter Visit Diagnoses Not on filedocumented in this encounter Care Teams Box Builder Relationship Specialty Start Date End Date Ynes Azul MD PCP - General Family Practice 04/27/18 documented as of this encounter
--- OUTSIDE RECORDS SUMMARY | 2024-05-02 17:00 | XMS_ITS | Referral Summary ---
Author Organization [place] [address] Address [address] [place] [address] [address] [place] [address] Care Team Providers Care Supervisor Winter Name Role Phone Ynes Azul MD Primary Care Provider +1- [phone] Encounters Date Type Department Care Team Description 04/25/2024 1:30 PM HEAD OF MUSIC Office Visit [facility] Cardiology [address] [place] [address] [address] [place] [address] Duarte Tavarez MD NEGRON (dyspnea on exertion) (Primary Dx); Coronary artery disease involving hopi coronary artery of hopi heart without angina pectoris; History of ST elevation myocardial infarction; Status post angioplasty with stent; Ischemic cardiomyopathy; Exposure to dust 04/23/2024 Telephone [facility] Cardiology [address] [place] [address] [address] [place] [address] Duarte Tavarez MD Leg Swelling; [...] on file Legal Sex Male 7:09 PM HEAD OF MUSIC Gender Identity Not on file Sexual Orientation Not on file Last Filed Vital Signs Vital Sign Reading Time Taken Comments Blood Pressure 132/84 04/25/2024 1:08 PM HEAD OF MUSIC Pulse 77 04/25/2024 1:08 PM HEAD OF MUSIC Temperature - - Respiratory Rate 16 06/14/2022 7:59 AM CDT Oxygen Saturation 93% 04/25/2024 1:08 PM HEAD OF MUSIC Inhaled Oxygen Concentration - - Weight 96.2 kg (212 lb) 04/25/2024 1:08 PM HEAD OF MUSIC Height 160 cm (5' 3 ) 04/25/2024 1:08 PM HEAD OF MUSIC Body Mass Index 37.55 04/25/2024 1:08 PM HEAD OF MUSIC Plan of Treatment Not on file [place] Sub[place] Plan / Payer ( fective 2010-Present) Name:Malcolm Lynne Relation to Subscriber:Self Name:Leroy Lynnehien Armstrong Payer ID:[id number] (NAIC) Type:BC OTHER Address: [address] [place] [phone] Care Teams Supervisor Winter Relationship Specialty Start Date End Date Ynes Azul MD PCP - General Family Practice 04/27/18
--- OUTSIDE RECORDS SUMMARY | 2024-05-02 17:00 | XMS_ITS | Clinical Summary ---
Author Organization [facility] [address] Address [address] [place] [address] Care Team Providers Care Power Transformer Assembler Name Role Phone Ynes Azul MD Primary Care Provider +1- [phone] Allergies Active Allergy Reactions Criticality Noted Date [...] Department Care Team Description 04/25/2024 1:30 PM QUALITY CONTROL ANALYST Office Visit [facility] Medical Group Cardiology [address] [place] [address] Duarte Tavarez MD NEGRON (dyspnea on exertion) (Primary Dx); Coronary artery disease involving [place] coronary artery of [place] heart without angina pectoris; History of ST elevation myocardial infarction; Status post angioplasty with stent; Ischemic cardiomyopathy; Exposure to dust 04/23/2024 Telephone [facility] Cardiology [address] [place] [address] Duarte Tavarez MD Leg Swelling; [...] on file Legal Sex Male 7:09 PM QUALITY CONTROL ANALYST Gender Identity Not on file Sexual Orientation Not on file Obstetrics History Last Filed Vital Signs Vital Sign Reading Time Taken Comments Blood Pressure 132/84 04/25/2024 1:08 PM QUALITY CONTROL ANALYST Pulse 77 04/25/2024 1:08 PM QUALITY CONTROL ANALYST Temperature - - Respiratory Rate 16 06/14/2022 7:59 AM CDT Oxygen Saturation 93% 04/25/2024 1:08 PM QUALITY CONTROL ANALYST Inhaled Oxygen Concentration - - Weight 96.2 kg (212 lb) 04/25/2024 1:08 PM QUALITY CONTROL ANALYST Height 160 cm (5' 3 ) 04/25/2024 1:08 PM QUALITY CONTROL ANALYST Body Mass Index 37.55 04/25/2024 1:08 PM QUALITY CONTROL ANALYST Plan of Treatment Health Maintenance Due Date [...] patient's age to complete this topic Insurance [employer] [place] [employer] [place] Care Teams Power Transformer Assembler Relationship Specialty Start Date End Date Ynes Azul MD PCP - General Family Practice 2/21/19
--- NOTE | 2024-05-03 11:12 | WPDPFTINT ---
PFT Procedure Performed PFT Procedure Performed Plethysmography (Lung Vol) Diffusing Cap (DLCO) Flow Vol Loop Spirometry w/o Bronchodil PFT Interpretation Lung volumes were measured with the body plethysmography method. The diminished expiratory reserve volume could be due to obesity. The remaining lung volumes are unremarkable. Spirometry showed diminished expiratory flow rates and a normal FEV1 to FVC ratio of 84%. No post bronchodilator study was conducted. Lung diffusion capacity is moderately reduced at 56% predicted. This diminished lung diffusion capacity coupled with a low alveolar volume and a normal DLCO/VA ratio of 85% suggests loss of alveolar capillary structure with loss of lung volume as seen in emphysema or interstitial lung disease. Clinical correlation advised. The flow-volume loop is unremarkable. Impression: Nonspecific pattern. Moderately reduced lung diffusion capacity.
== END 2024-05-02 14:41 | disposition home or self-care (01) ==
LOC: ANHPFT 14:41
PROVIDERS: PCP Family Medicine; Visit Provider Internal Medicine Cardiovascular Disease
DX: R06.09 Other forms of dyspnea (principal); Z77.29 Contact with and (suspected) exposure to other hazardous substances
CPT/HCPCS: 94375; 94726; 94729

== ENCOUNTER 2025-01-19 15:39 | Inpatient (IN) | payer BC, SELFPAY ==
--- NOTE | ~2025-01-19 | US_ITS ---
EXAMINATION: US arterial duplex LE DATE: 01/23/2025 10:53 INDICATION: Assess for peripheral arterial occlusive disease. TECHNIQUE: Multiple grayscale and Doppler ultrasound images of the arteries of the bilateral lower limbs were obtained. COMPARISON: None FINDINGS: Mild right inguinal lymphadenopathy with 2.7 x 2.5 x 1.1 cm right inguinal lymph node. Normal triphasic arterial waveforms with brisk systolic upstrokes at both the left and right common femoral, superficial femoral, performed a femoral, popliteal, posterior tibial, peroneal, anterior tibial and dorsalis pedis arteries. No significant atherosclerotic plaque on grayscale imaging or abnormally elevated velocities to suggest hemodynamically significant stenosis. IMPRESSION: 1. No evident hemodynamically significant stenosis in either lower limb with normal triphasic waveforms with brisk systolic upstrokes throughout the arteries of the bilateral lower limbs. 2. Nonspecific mild right inguinal lymphadenopathy which is most likely reactive. Correlate clinically and could consider either clinical follow-up with physical exam, follow-up ultrasound in 6 months or ultrasound-guided core needle biopsy depending on level of clinical concern. Reviewed, dictated and finalized at location A. IST DANCER IMPRESSION: 1. No evident hemodynamically significant stenosis in either lower limb with no rmal triphasic waveforms with brisk systolic upstrokes throughout the arteries of the bilateral lower limbs. 2. Nonspecific mild right inguinal lymphadenopathy which is most likely reactiv e. Correlate clinically and could consider either clinical follow-up with physi angel exam, follow-up ultrasound in 6 months or ultrasound-guided core needle bio psy depending on level of clinical concern.
--- NOTE | ~2025-01-19 | XR_ITS ---
EXAMINATION: XR foot RT min 3V, 01/19/2025 17:07 [facility] HISTORY: Diabetic foot COMPARISON: No comparisons available. Findings: No acute fracture or malalignment. No significant degenerative changes. Soft tissues unremarkable. Impression: No acute fracture or malalignment. Reviewed, dictated and finalized at location P. [facility] Impression: No acute fracture or malalignment.
--- NOTE | ~2025-01-19 | US_ITS ---
EXAM/PROCEDURE: US arterial ankle brachial ind HISTORY: diabetic PVD COMPARISON: None available. TECHNIQUE: MICHELL exam FINDINGS: Right and left brachial systolic pressure readings are 122 and 131 Right and left posterior tibial and dorsalis pedis pressures could not be obtained. Right left great toe pressure readings are 69 and 123 Right and left TBI ratios are 0.53 and 0.94 IMPRESSION: Nondiagnostic exam for ABIs. There is significant disparity in the right TBI compared to the left. Consider correlation with dedicated duplex arterial interrogation of the lower extremities. Reviewed, dictated and finalized at location A. SETTER IMPRESSION: Nondiagnostic exam for ABIs. There is significant disparity in the right TBI co mpared to the left. Consider correlation with dedicated duplex arterial interro gation of the lower extremities.
--- NOTE | ~2025-01-19 | CT_ITS ---
EXAMINATION: CT brain wo con DATE: 01/20/2025 10:28 INDICATION: Blurry vision. TECHNIQUE: Computed tomography (CT) of the head was performed without intravenous contrast. The mA was adjusted according to patient size. Iterative reconstruction technique was employed. The dose-length product was 681.00 mGy-cm. COMPARISON: None FINDINGS: There is no intracranial hemorrhage, acute infarction, or abnormal intracranial mass lesion. There are dystrophic calcifications in the cerebellum and bilateral basal ganglia. The ventricles are normal in size. The orbits are normal. There is mucosal thickening in the paranasal sinuses and dependent fluid in left maxillary sinus. The mastoid air cells are normal. IMPRESSION: 1. No acute intracranial pathology. Reviewed, dictated and finalized at location E. L RIVETER
--- NOTE | ~2025-01-19 | XR_ITS ---
Examination: XR chest 1V portable Clinical History: RESPIRATORY ILLNESS SYMPTOMS Comparison: 04/30/2024 Technique: Portable AP Findings: Heart size normal. Lungs clear. No acute bony abnormality. IMPRESSION: 1. No acute cardiopulmonary findings given portable technique. Reviewed, dictated and finalized at location R. RUCTIONAL INTERVENTIONIST
[2025-01-19 15:52] VITALS: BP 146/98; PULSE 74; RESP 14; TEMP 36.6; O2SAT 98
[2025-01-19 16:27] LABS: Hematocrit 35.2 % (42.0-52.0); Hemoglobin 12.0 g/dL (14.0-18.0); Immature Granulocyte Percent A 0.4 % (0-0.5); Lymphocytes Absolute Auto 2.70 K/mm3 (0.9-3.2); Mean Corpuscular HGB Conc 34.1 g/dl (32-36); Mean Corpuscular Hemoglobin 29.3 pg (26-34); Mean Corpuscular Volume 86.1 fl (80-100); Nucleated Red Blood Cells Absolute Auto 0.000 K/mm3 (0.0-0.012); Nucleated Red Blood Cells Perc 0.0 % (0.0-0.2); Platelet Count Result 264 k/mm3 (150-375); Red Blood Count 4.09 M/mm3 (4.6-6.20); White Blood Count 11.3 K/mm3 (4.5-10.0)
[2025-01-19 16:35] LABS: Alanine Aminotransferase 16 U/L (6-50); Albumin Level 3.8 g/dL (3.5-5.1); Alkaline Phosphatase 115 U/L (38-126); Anion Gap 7 mmol/L (4-12); Aspartate Amino Transferase 25 U/L (17-59); Bilirubin,Total 0.6 mg/dL (0.2-1.3); Blood Urea Nitrogen 25 mg/dL (9-20); Calcium 8.7 mg/dL (8.4-10.2); Carbon Dioxide 25 mmol/L (22-30); Chloride 103 mmol/L (98-107); Estimated CRCL calculation 68 ml/min; Estimated Glomerular Filt Rate > 60; Glucose 196 mg/dL (65-110); Potassium 4.0 mmol/L (3.4-5.0); Sodium 135 mmol/L (137-145); Total Protein 7.4 g/dL (6.3-8.2)
--- NOTE | 2025-01-19 16:41 | ED.LOWEXIN ---
HPI - Extremity Injury (Lower) General Chief Complaint: Extremity Injury, Lower Stated Complaint: infection in the right toe, swelling, redness, Time Seen by Provider: 01/19/25 16:39 Source: patient Mode of arrival: ambulatory Limitations: no limitations History of Present Illness HPI Narrative: 44 years old white male came to the ED complaining of pain, redness of the right 2nd toe started spreading to the right big toe and dorsal side of the right foot 3 days ago. He denies any fever, chills, nausea vomiting or trauma History of diabetes Related Data Home Medications ?Medication ?Instructions ?Recorded ?Confirmed ?Last Taken ?Type aspirin 81 mg tablet,delayed 81 mg PO DAILY 01/17/19 01/19/25 Unknown History release (Adult Aspirin Regimen) atorvastatin 80 mg tablet 80 mg PO HS 01/19/25 01/19/25 Unknown History ezetimibe 10 mg tablet 10 mg PO HS 01/19/25 01/19/25 Unknown History insulin glargine 100 unit/mL (3 50 unit subcut HS 01/19/25 01/19/25 Unknown History mL) subcutaneous pen (Basaglar KwikPen U-100 Insulin) losartan 100 mg tablet 100 mg PO DAILY 01/19/25 01/19/25 Unknown History metformin 500 mg tablet 1,000 mg PO BID 01/19/25 01/19/25 Unknown History potassium chloride 20 mEq 20 meq PO HS 01/19/25 01/19/25 Unknown History tablet,extended release(part/cryst) (Klor-Con M) Allergies Allergy/AdvReac Type Severity Reaction Status Date / Time No Known Allergies Allergy Verified 01/19/25 19:47 Review of Systems Review of Systems: All systems reviewed & are unremarkable except as noted in HPI and below PMFSH Past Medical History Medical History CHF (congestive heart failure) Obesity Hypertension Type 2 diabetes mellitus Hyperlipidemia Broken wrist Coronary stent patent Surgical History Surgical History History of toe surgery Coronary angioplasty status Family History Family History Father Diabetes mellitus Hypertension Family history of cardiovascular disease Family history of coronary artery disease Mother Diabetes mellitus Hypertension Family history of cardiovascular disease Family history of coronary artery disease Father Heart disease Mother Heart disease Social History Social History Smoking status: Current some day smoker Tobacco type: cigars (special occasions, does not smoke every week) Second hand tobacco smoke exposure: Yes Additional smoking assessment comments: Patient stated he only smokes this selin once in a while. Alcohol intake: former Alcohol use details: Patient stated drinks only on occasion. Substance use: never Substance use type: does not use Lack of Transportation: No Lack of Food: Never True Current Housing: I Do Not Have Housing Concerned About Future Housing: No Difficulty Paying Gas/Electric Bills: No Difficulty Paying for Meds: No Currently Unemployed: No Education: Trade/Vocational Certificate Difficulty w/ Childcare or Family Care: No Living arrangements: with family Spiritual care concerns: No Exam Narrative: General appearance: Well-developed, well-nourished Skin: Normal color Head: Normocephalic, nontraumatic Eyes: Clear conjunctiva ENT: Oropharynx normal, ears normal, nose normal Neck: Supple, nontender Chest and respiratory: Airway patent, no respiratory distress, no accessory muscle use Heart: Regular rate/rhythm Abdomen: Soft, nontender, no organomegaly, quiet bowel sounds Vascular: Normal peripheral pulses, normal capillary refill. Musculoskeletal: Right 2nd toe showing ulceration, swelling, diffuse tenderness, diffuse erythema of the right foot dorsally with diffuse tenderness, no discharge Neurologic: Alert and oriented ?3, ELECTRIC SOLDERER is normal as tested, no gross motor deficit Course Vital Signs Vital signs: Vital Signs Temperature 36.6 C 01/19/25 15:52 Pulse Rate 74 01/19/25 15:52 Respiratory Rate 14 01/19/25 15:52 Blood Pressure 146/98 H 01/19/25 15:52 Pulse Oximetry 98 01/19/25 15:52 Oxygen Delivery Room Air 01/19/25 15:52 Temperature 36.6 C 01/19/25 15:52 Pulse Rate 74 01/19/25 15:52 Respiratory Rate 14 01/19/25 15:52 Blood Pressure 146/98 H 01/19/25 15:52 Pulse Oximetry 98 01/19/25 15:52 Oxygen Delivery Room Air 01/19/25 15:52 MDM - Extremity Injury (Lower) MDM Narrative Medical decision making narrative: Patient came with infected right 2nd toe Vital signs are stable Physical examination consistent with infection of the right 2nd toe and right foot. Differential diagnosis cellulitis, osteomyelitis, uncontrolled diabetes Blood workup today showed WBC 11.3, glucose 196 C-reactive protein 8.4 otherwise within normal limit X-ray of the right foot showed no osseous abnormality Patient started on Zosyn and vancomycin Diagnosis diabetic infected foot Admit to hospitalist Differential Diagnosis Differential diagnosis: Likely other (As above) Medical Records Attestation: I reviewed the patient's medical records. Lab Data Attestation: I reviewed the patient's lab results. 01/19/25 16:16 01/19/25 16:16 Labs: Lab Results 01/19/25 01/19/25 Range/Units 16:16 17:25 WBC 11.3 H (4.5-10.0) K/mm3 RBC 4.09 L (4.6-6.20) M/mm3 Hgb 12.0 L (14.0-18.0) g/dL Hct 35.2 L (42.0-52.0) % MCV 86.1 (80-100) fl MCH 29.3 (26-34) pg MCHC 34.1 (32-36) g/dl RDW 12.2 (11.5-14.5) % Plt Count 264 (150-375) k/mm3 MPV 11.1 H (7.4-10.4) fl Immature Gran % (Auto) 0.4 (0-0.5) % Neut % (Auto) 62.3 (45.5-73.1) % Lymph % (Auto) 24.0 (18.3-44.2) % Gila % (Auto) 9.7 H (2.6-8.5) % Eos % (Auto) 3.0 (0-4.4) % Baso % (Auto) 0.6 (0.2-1.2) % Lymph # (Auto) 2.70 (0.9-3.2) K/mm3 Gila # (Auto) 1.1 H (0.1-0.6) K/mm3 Eos # (Auto) 0.3 (0-0.3) K/mm3 Baso # (Auto) 0.1 (0.0-0.1) K/mm3 Abs Immat Gran (auto) 0.04 H (0.00-0.031) K/mm3 Absolute Neuts (auto) 7.0 H (1.3-6.7) K/mm3 Absolute Nucleated RBC 0.000 (0.0-0.012) K/mm3 Nucleated RBC % 0.0 (0.0-0.2) % Sodium 135 L (137-145) mmol/L Potassium 4.0 (3.4-5.0) mmol/L Chloride 103 (98-107) mmol/L Carbon Dioxide 25 (22-30) mmol/L Anion Gap 7 (4-12) mmol/L BUN 25 H (9-20) mg/dL Creatinine 1.22 (0.7-1.3) mg/dL Estim Creat Clear Calc 68 ml/min Estimated GFR > 60 (59 - ) Glucose 196 H (65-110) mg/dL Lactic Acid 1.4 (0.7-2.0) mmol/L Calcium 8.7 (8.4-10.2) mg/dL Total Bilirubin 0.6 (0.2-1.3) mg/dL AST 25 (17-59) U/L ALT 16 (6-50) U/L Alkaline Phosphatase 115 (38-126) U/L C-Reactive Protein 8.4 H (<1.0) mg/dL Total Protein 7.4 (6.3-8.2) g/dL Albumin 3.8 (3.5-5.1) g/dL Imaging Data Radiologist's impression: Impressions Foot X-Ray 01/19/25 17:30 Impression: No acute fracture or malalignment. Critical Care Time Critical Care Time Critical Care Time: No Discharge Plan Discharge Clinical Impression: Diabetic foot infection Patient Disposition: Still a Patient Condition: Stable
[2025-01-19 17:17] LABS: CRP 8.4 mg/dL (<1.0)
--- OUTSIDE RECORDS SUMMARY | 2025-01-19 17:32 | XMS_ITS | Clinical Summary ---
Author Organization [facility] [address] Address [address] [place] [address] Care Team Providers Care Fare Register Repairer Name Role Phone Ne Tompkins MD Primary Care Provider [phone] Allergies Active Allergy Reactions Criticality Noted Date Comments Alirocumab Rash Medium 06/25/2019 Medications glimepiride (AMARYL) 4 mg tabletIndications: type 2 diabetes mellitus TK 2 TS DAILY 0 04/09/19 19 Active metFORMIN (GLUCOPHAGE) 500 mg tablet TK 2 TS PO QD WITH THE MORNING AND DEE MEAL 0 04/09/19 19 Active sildenafil (VIAGRA) 100 mg tablet TK 1 T PO D PRN 5 03/13/19 19 Active insulin glargine (LANTUS,BASAGLAR) 100 unit/mL (3 mL) insulin pen Inject 50 Units under the skin daily Active aspirin (ENTERIC COATED ASPIRIN) 81 mg enteric coated tablet Take 1 tablet (81 mg total) by mouth daily 08/06/19 19 Active atorvastatin (LIPITOR) 80 mg tablet TAKE 1 TABLET(80 MG) BY MOUTH DAILY 90 tablet 1 08/08/19 22 Active spironolactone (ALDACTONE) 25 mg tablet TAKE 1 TABLET(25 MG) BY MOUTH DAILY 90 tablet 2 09/09/19 22 Active metoprolol XL (TOPROL-XL) 100 mg 24 hr tabletIndications: Ischemic cardiomyopathy Take 1 tablet (100 mg total) by mouth daily 90 tablet 1 12/23/19 22 Active icosapent ethyL (VASCEPA) 1 gram capsule Take 2 capsules (2 g total) by mouth 2 (two) times a day 120 capsule 11 06/15/19 23 Active Additional Information Patient not taking.Reported on 08/22/2024 losartan (COZAAR) 100 mg tablet TAKE 1 TABLET BY MOUTH EVERY DAY 90 tablet 2 08/07/19 25 Active terbinafine (LamiSIL) 250 mg tablet Take 1 tablet (250 mg total) by mouth daily 07/31/19 25 Active furosemide (LASIX) 40 mg tabletIndications: Cardiomyopathy, ischemic Take 1 tablet (40 mg total) by mouth 2 (two) times a day 60 tablet 6 08/23/19 25 Active potassium chloride ER 20 mEq CR tablet TAKE 1 TABLET BY MOUTH EVERY DAY 90 tablet 2 10/03/19 25 Active ezetimibe (ZETIA) 10 mg tablet TAKE 1 TABLET BY MOUTH EVERY DAY AT NIGHT 30 tablet 5 12/20/19 25 Active Active Problems Problem Noted Date Diagnosed Date Severe obesity 06/18/2024 Cardiomyopathy, ischemic 06/18/2024 Coronary artery disease invo lving [place] coronary artery of [place] heart without angina pectoris 06/18/2024 Medical History Medical History Date Comments Hypertension Diabetes mellitus Family History Relation Name Status Comments Father (Age 48) Mother Alive Social History Tobacco Use Types Packs/Day Years Used Date Smoking Tobacco: Never Smokeless Tobacco: Never Tobacco Cessation:Counseling Given: Not Answered Sex and Gender Information Value Date Recorded Sex Assigned at Not on file 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 Gender Identity Not on file Sexual Orientation Not on file Last Filed Vital Signs Vital Sign Reading Time Taken Comments Blood Pressure 130/80 08/22/2024 10:23 AM CDT Pulse 71 08/22/2024 10:23 AM CDT Temperature - - Respiratory Rate 18 08/22/2024 10:23 AM CDT Oxygen Saturation 97% 08/22/2024 10:23 AM CDT Inhaled Oxygen Concentration - - Weight 94.8 kg (209 lb) 08/22/2024 10:23 AM CDT Height 160 cm (5' 3) 08/22/2024 10:23 AM CDT Body Mass Index 37.02 08/22/2024 10:23 AM CDT Plan of Treatment Health Maintenance Due Date Last Done Comments Colon Cancer Screening-Colonoscopy 1978 Depression Screening 1978 Hepatitis C Screening 1978 DTaP/Tdap/Td Vaccine (1 - Tdap) 1989 Hepatitis B Screening 02/03/1996 Regular Well Visit/Exam 18-64 02/03/1996 Pneumococcal vaccine <65 (1 of 2 - PCV) 1997 Influenza Vaccine (#1) 2024 HPV Vaccines Aged Out No longer eligi ble based on patient's age to complete this topic Insurance [employer] [place] Care Teams Fare Register Repairer Relationship Specialty Start Date End Date Ne Tompkins MD PCP - General Family Medicine 06/18/24
--- OUTSIDE RECORDS SUMMARY | 2025-01-19 17:33 | XMS_ITS | Encounter Summary ---
Author Organization [facility] Healthcare Address [address] [place] [address] Care Team Providers Care Developmental Electronics Assembler Name Role Phone Ynes Azul MD Primary Care Provider [phone]- [phone] Ne Tompkins MD Primary Care Provider [phone] Encounter Details Date Type Department Care Team (Late st Contact Info) Description 05/02/2024 Orders Only [facility] Health Information Management [address] [place] [id number] Scanning, Provider Social History Tobacco Use Types Packs/Day Years Used Date Smoking Tobacco: Never Smokeless Tobacco: Never Sex and Gender Information Value Date Recorded Sex Assigned at Not on file 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 Gender Identity Not on file Sexual Orientation Not on file documented as of this encounter Plan of Treatment Not on file documented as of this encounter Procedures Procedure Name Priority Date/Time Associated Diagnosis Comments PULMONARY - RESULT SCAN 05/02/2024 documented in this encounter Results * PULMONARY - RESULT SCAN (05/02/2024) Anatomical Region Laterality Modality Other us Provider Scanning Final Result documented in this encounter Visit Diagnoses Not on filedocumented in this encounter Care Teams Developmental Electronics Assembler Relationship Specialty Start Date End Date Ynes Azul MD PCP - General Family Practice 04/27/18 06/17/24 Ne Tompkins MD PCP - General Family Medicine 06/18/24 documented as of this encounter
[2025-01-19] MEDS: PIPERACILLIN/TAZOBACTAM SOD 3.375 GM in SODIUM CHLORIDE 0.9% IV 50 ML 100 ML IVPB (18:10)
[2025-01-19 18:11] VITALS: BP 156/85; PULSE 70; RESP 16; O2SAT 98
[2025-01-19] MEDS: metroNIDAZOLE 500 MG/ISO 100ML 500 MG/100 ML BAG 100 MG IVPB (18:14)
[2025-01-19] MEDS: VANCOMYCIN 1,500 MG/NS 500 ML 1,500 MG/500 ML BAG 250 MG IVPB (18:32)
--- NOTE | 2025-01-19 18:35 | WPCEDHO ---
ED Hand Off Checklist All vitals saved:y IV Site documented:y All med administrations documented:y Triage Note Triage Note Pt presents to ED c/o infection 01/19/25 18:11 in R toe. Pt states this started 3 days ago, another toe had created a blister, it popped, and infection spread. pt states he has taken no OTC medication. Allergies No Known Allergies Allergy (Verified 04/30/24 05:03) Family History (Last Reviewed 04/30/24 @ 05:31 by Carlos Gaffney MD) Father Diabetes mellitus Hypertension Family history of cardiovascular disease Family history of coronary artery disease Mother Diabetes mellitus Hypertension Family history of cardiovascular disease Family history of coronary artery disease Father Heart disease Mother Heart disease Active Medications including assessments/comments Vancomycin HCl (Vancomycin 1,500 Mg/Ns 500 Ml) 1,500 mg in 500 mls @ 250 mls/hr IVPB ONCE ONE Stop: 01/19/25 19:59 Last Admin: 01/19/25 18:32 Dose: 250 mls/hr Documented By: LEV Infusion/Titration Document 01/19/25 18:32 LEV (Rec: 01/19/25 18:32 LEV [id number]) Intake IV Site Peripheral Access Left Antecubital Container Volume 500 Waste Amount 0 Dosing Infusion Rate 250 Increase/Decrease Started Elapsed Time Elapsed Time ( 0m minutes) Metronidazole (Flagyl 500 Mg/Iso Soln 100 Ml) 500 mg in 100 mls @ 100 mls/hr IVPB Q8H JESSICA Last Admin: 01/19/25 18:14 Dose: 100 mls/hr Documented By: LEV Infusion/Titration Document 01/19/25 18:14 LEV (Rec: 01/19/25 18:14 LEV [id number]) Intake IV Site Peripheral Access Left Antecubital Container Volume 100 Waste Amount 0 Dosing Infusion Rate 100 Increase/Decrease Started Elapsed Time Elapsed Time ( 0m minutes) Administered/Completed Medications Discontinued Medications Piperacillin Sod/Tazobactam (Sod 3.375 gm/ Sodium Chloride) 50 mls @ 100 mls/hr IVPB ONCE STA Stop: 01/19/25 17:36 Last Infusion: 01/19/25 18:28 Dose: Infused Documented By: Admin: 01/19/25 18:10 Dose: 100 mls/hr Documented By: LEV Interventions/Assessments IV / Saline Lock, Insert Start: 01/19/25 15:52 Freq: Status: Active Protocol: Document 01/19/25 16:14 LEV (Rec: 01/19/25 16:15 LEV [id number]) IV Assessment Peripheral Access Left Antecubital IV Catheter Access Initiated IV Insertion Date 01/19/25 IV Insertion Time 16:15 Catheter Gauge 20 IV Insertion 1 Attempts Ultrasound Used for No Placement IV Site Assessment WNL IV Care and WNL Maintenance Last Vital Signs Temperature 97.9 F 01/19/25 15:52 Pulse Rate 70 01/19/25 18:11 Respiratory Rate 16 01/19/25 18:11 Pulse Oximetry 98 01/19/25 18:11 Blood Pressure 156/85 H 01/19/25 18:11 Blood Pressure Mean 108 01/19/25 18:11 Blood Pressure Position Sitting 01/19/25 18:11 Oxygen Delivery Room Air 01/19/25 15:52 Weight 93.5 kg 01/19/25 18:11 Last Result - Abnormals Only WBC 11.3 K/mm3 (4.5-10.0) H 01/19/25 16:16 RBC 4.09 M/mm3 (4.6-6.20) L 01/19/25 16:16 Hgb 12.0 g/dL (14.0-18.0) L 01/19/25 16:16 Hct 35.2 % (42.0-52.0) L 01/19/25 16:16 MPV 11.1 fl (7.4-10.4) H 01/19/25 16:16 Dickenson % (Auto) 9.7 % (2.6-8.5) H 01/19/25 16:16 Dickenson # (Auto) 1.1 K/mm3 (0.1-0.6) H 01/19/25 16:16 Abs Immat Gran (auto) 0.04 K/mm3 (0.00-0.031) H 01/19/25 16:16 Absolute Neuts (auto) 7.0 K/mm3 (1.3-6.7) H 01/19/25 16:16 Sodium 135 mmol/L (137-145) L 01/19/25 16:16 BUN 25 mg/dL (9-20) H 01/19/25 16:16 Glucose 196 mg/dL (65-110) H 01/19/25 16:16 C-Reactive Protein 8.4 mg/dL (<1.0) H 01/19/25 16:16 Most Recent Suicide Severity Rating Suicide Severity Rating NO RISK INDICATED 01/19/25 18:11
[2025-01-19] MEDS: CEFEPIME 2 GM in SODIUM CHLORIDE 0.9% IV 50 ML 100 ML IVPB (18:51)
--- NOTE | 2025-01-19 19:34 | P.HP_ITS ---
H&P: HPI History of Present Illness Date/Time: 01/19/25 19:34 Chief Complaint: Right 2nd toe swelling and redness Narrative: 44-year-old male past medical history of CHF, BC, diabetes, hyperlipidemia and coronary stents presents the hospital with right toe swelling and redness. Patient states that the redness and swelling started about 3 days ago. His since then progressively gotten worse. Has clear drainage and some pain however has severe neuropathy in his feet. Denies fevers chills nausea or vomiting. Lab work in the ED shows leukocytosis at 11.3, hemoglobin of 12.0, sodium of 135, BUN at 25, creatinine of 1.22 with baseline being 0.71, glucose 196, lactic acid 1.4, CRP 8.4, right foot x-ray shows no acute fracture. Patient being admitted for a diabetic ulcer infection. Review of Systems Review of Systems: 12 systems were reviewed and are negativ e except for as per HPI. [facility] Past Medical History Medical History CHF (congestive heart failure) Obesity Hypertension Type 2 diabetes mellitus Hyperlipidemia Broken wrist Coronary stent patent Surgical History Surgical History History of toe surgery Coronary angioplasty status Family History Family History Father Diabetes mellitus Hypertension Family history of cardiovascular disease Family history of coronary artery disease Mother Diabetes mellitus Hypertension Family history of cardiovascular disease Family history of coronary artery disease Father Heart disease Mother Heart disease Social History Social History Smoking status: Current some day smoker Tobacco type: cigars (special occasions, does not smoke every week) Second hand tobacco smoke exposure: Yes Additional smoking assessment comments: Patient stated he only smokes this selin once in a while. Alcohol intake: former Alcohol use details: Patient stated drinks only on occasion. Substance use: never Substance use type: does not use Lack of Transportation: No Lack of Food: Never True Current Housing: I Do Not Have Housing Concerned About Future Housing: No Difficulty Paying Gas/Electric Bills: No Difficulty Paying for Meds: No Currently Unemployed: No Education: Trade/Vocational Certificate Difficulty w/ Childcare or Family Care: No Living arrangements: with family Spiritual care concerns: No Meds Home Medications and Allergies Home Medications ?Medication ?Instructions ?Recorded ?Confirmed ?Type aspirin 81 mg tablet,delayed 81 mg PO DAILY 01/17/19 1 03/21/24 History release (Adult Aspirin Regimen) blood sugar diagnostic (Advocate #300 ea 02/19/2201/05 Rx Test Strips) blood-glucose meter (Blood Glucose #1 ea 02/19/2201/05 Rx Monitoring kit) lancets 33 gauge (BD Ultra Fine #300 ea 02/19/2201/19 Rx Lancets) furosemide 20 mg tablet (Lasix) 20 mg PO BID #30 tabs 04/30/24 01/19/25 Rx spironolactone 25 mg tablet 25 mg PO DAILY #90 tabs 01/19/25 Rx pen needle, diabetic 31 gauge x #300 ea 09/11/2401/19 Rx 3/16 (1st Tier Unifine Pentips) glimepiride 4 mg tablet 8 mg (2 x 4 mg) PO QAM #180 tabs 09/20/24 01/19/25 Rx metoprolol succinate 50 mg 75 mg (1.5 x 50 mg) PO MATTHIAS Y #135 09/20/24 01/19/25 Rx tablet,extended release 24 hr tabs atorvastatin 80 mg tablet 80 mg PO HS 01/19/25 5 History ezetimibe 10 mg tablet 10 mg PO HS 01/19/25 5 History insulin glargine 100 unit/mL (3 50 unit subcut HS 01/0501/19/25 History mL) subcutaneous pen (Basaglar KwikPen U-100 Insulin) losartan 100 mg tablet 100 mg PO DAILY 01/19/25 History metformin 500 mg tablet 1,000 mg PO BID 01/19/25 History potassium chloride 20 mEq 20 meq PO HS 01/19/25 History tablet,extended release(part/cryst) (Klor-Con M) Allergies Allergy/AdvReac Type Severity Reaction Status Date / Time No Known Allergies Allergy Verified 01/19/25 19:47 Vital Signs Vital Signs - 24 hr 01/19/25 15:52 01/19/25 18:11 Temperature 97.9 F Pulse Rate 74 70 Respiratory Rate 14 16 Blood Pressure 146/98 H 156/85 H Pulse Oximetry 98 98 Oxygen Delivery Room Air Exam Narrative: General: well appearing, appears stated age. HEENT: normocephalic, atraumatic. Mucous membranes moist. EOMI, PERRLA, bilateral sclera anicteric, no conjunctival injection. Neck supple without JVD, lymphadenopathy, or bruit. Respiratory: clear bilaterally. No rales/rhonic/wheezes. Cardiovascular: Regular rate and rhythm, normal S1-S2. No murmurs, rubs, or clicks. PMI is nondisplaced, capillary refill less than 3 second. Abdomen: Soft, round, no pulsatile masses, nondistended and nontender. No rebound, no guarding. Bowel sounds present to all four quadrants. No high pitch or tinkling sounds, resonant to percussion. Extremities: No cyanosis, clubbing, or edema present. Pulses are palpable 2/2. Right 2nd toe with erythema, sloughing tissue with clear drainage, no odor or necrotic tissue present. Neuro: Alert and orientated x 4. PERRLA. Cranial nerves 2-12 intact without focal deficit. Skin: Warm, dry, and intact, without rash, erythema, or lesion. Psych: pleasant, cooperative, normal speech, normal affect, no hallucinations, no dysarthia H&P: Results Labs Labs: Short CBC 01/19/25 Range/Units 16:16 WBC 11.3 H (4.5-10.0) K/mm3 Hgb 12.0 L (14.0-18.0) g/dL Hct 35.2 L (42.0-52.0) % Plt Count 264 (150-375) k/mm3 [facility] 01/19/25 16:16 Sodium 135 L Potassium 4.0 Chloride 103 Carbon Dioxide 25 BUN 25 H Creatinine 1.22 Glucose 196 H Calcium 8.7 Liver Function 01/19/25 Range/Units 16:16 Total Bilirubin 0.6 (0.2-1.3) mg/dL AST 25 (17-59) U/L ALT 16 (6-50) U/L Alkaline Phosphatase 115 (38-126) U/L Albumin 3.8 (3.5-5.1) g/dL Assessment and Plan Assessment and plan (1) Diabetic foot infection: Code(s): E11.628 - Type 2 diabetes mellitus with other skin complications; L08.9 - Local infection of the skin and subcutaneous tissue, unspecified Status: Acute Assessment and Plan: No necrotic tissue, no drainage, x-ray with no fracture IV cefepime, Flagyl and vancomycin continue Wound care Blood cultures pending A.m. labs (2) Hypertension: Qualifiers: Hypertension type: essential hypertension Qualified Code(s): I10 - Essential (primary) hypertension Code(s): I10 - Essential (primary) hypertension Status: Acute Assessment and Plan: Continue antihypertensive medications (3) CHF (congestive heart failure): Code(s): I50.9 - Heart failure, unspecified Status: Acute Assessment and Plan: Euvolemic Continue oral Lasix and spironolactone Continue potassium replacement (4) Hyperlipidemia: Code(s): E78.5 - Hyperlipidemia, unspecified Status: Acute Assessment and Plan: Continue Zetia (5) Type 2 diabetes mellitus: Qualifiers: Diabetes mellitus complication status: with hyperglycemia Diabetes mellitus chcf insulin use: with chcf use Qualified Code(s): E11.65 - Type 2 diabetes mellitus with hyperglycemia; Z79.4 - shelter (current) use of insulin Code(s): E11.9 - Type 2 diabetes mellitus without complications Status: Acute Assessment and Plan: Accu-Cheks a.c. HS Diabetic diet Hold home oral anti-hyperglycemic medications SSI and home Lantus Hemoglobin A1c pending Goal for blood sugar to be under 200 as it will promote healing (6) ACS (acute coronary syndrome): Code(s): I24.9 - Acute ischemic heart disease, unspecified Status: Acute Assessment and Plan: Continue metoprolol, Cozaar, Zetia, aspirin Quality VTE Prophylaxis VTE prophylaxis: mechanical ordered and pharmacologic ordered Hospitalist [facility] Advance Care Plan I have confirmed that the patient's Advanced Care Plan is present, code status is documented, or surrogate decision maker is listed in patient medical record.: Yes Medication Reconciliation I have utilized all available resources to obtain, update and review the patients current medications (includes all prescriptions, OTC, herbals, cannabis, and nutritional supplements).: Yes
--- NOTE | 2025-01-19 19:46 | ADMGEN ---
This patient, Malcolm Lynne Jr., was admitted to 3 [facility] Surg Room 301-01. Patient/family oriented to hospital policies and general routines including ID bracelet, bed and alarms, visiting hours, pain management, procedures, bathroom and other care routines, personal items, smoking policy, room service/diet, and visiting hours. Information on how to activate the Rapid Response Team has been discussed. Patient/Family are encouraged to report perceived risks to care and to ask questions if they do not understand what they are told or what they should do.
[2025-01-19 20:10] VITALS: PULSE 72; RESP 20; O2SAT 97
[2025-01-19] MEDS: ATORVASTATIN 40 MG TABLET 80 MG PO (20:49)
[2025-01-19] MEDS: EZETIMIBE 10 MG TABLET PO (20:49)
[2025-01-19] MEDS: POTASSIUM CHLORIDE 20 MEQ ER TABLET PO (20:56)
[2025-01-19] MEDS: ACETAMINOPHEN 325 MG TABLET 650 MG PO (21:17)
[2025-01-19] MEDS: INSULIN GLARGINE (*BKC) 100 UNITS/ML 40 UNITS SUB-Q (21:20)
[2025-01-19 22:09] VITALS: BP 138/73; PULSE 70; RESP 16; TEMP 36.2; O2SAT 95
[2025-01-20] MEDS: metroNIDAZOLE 500 MG/ISO 100ML 500 MG/100 ML BAG 100 MG IVPB ×3 (01:59→17:05)
[2025-01-20] MEDS: CEFEPIME 2 GM in SODIUM CHLORIDE 0.9% IV 50 ML 100 ML IVPB ×2 (05:07→18:04)
--- NOTE | 2025-01-20 05:19 | WNDPHOTO ---
PHOTO ONLY - See Nursing Notes and/ or assessments for documentation.
--- NOTE | 2025-01-20 05:21 | WNDPHOTO ---
PHOTO ONLY - See Nursing Notes and/ or assessments for documentation.
[2025-01-20 05:53] VITALS: BMI 37.0
[2025-01-20 05:56] VITALS: BP 139/65; PULSE 72; RESP 16; TEMP 36.3; O2SAT 94
[2025-01-20 06:36] LABS: Hematocrit 32.8 % (42.0-52.0); Hemoglobin 10.8 g/dL (14.0-18.0); Immature Granulocyte Percent A 0.5 % (0-0.5); Lymphocytes Absolute Auto 1.77 K/mm3 (0.9-3.2); Mean Corpuscular HGB Conc 32.9 g/dl (32-36); Mean Corpuscular Hemoglobin 29.0 pg (26-34); Mean Corpuscular Volume 87.9 fl (80-100); Nucleated Red Blood Cells Absolute Auto 0.000 K/mm3 (0.0-0.012); Nucleated Red Blood Cells Perc 0.0 % (0.0-0.2); Platelet Count Result 243 k/mm3 (150-375); Red Blood Count 3.73 M/mm3 (4.6-6.20); White Blood Count 8.8 K/mm3 (4.5-10.0)
[2025-01-20 07:07] LABS: Anion Gap 7 mmol/L (4-12); Blood Urea Nitrogen 20 mg/dL (9-20); Calcium 8.1 mg/dL (8.4-10.2); Carbon Dioxide 24 mmol/L (22-30); Chloride 106 mmol/L (98-107); Estimated CRCL calculation 100 ml/min; Estimated Glomerular Filt Rate > 60; Glucose 96 mg/dL (65-110); Potassium 3.8 mmol/L (3.4-5.0); Sodium 137 mmol/L (137-145)
--- NOTE | 2025-01-20 07:10 | P.PNIM_ITS ---
Progress Note: A&P Assessment and Plan (1) Diabetic foot infection: Code(s): E11.628 - Type 2 diabetes mellitus with other skin complications; L08.9 - Local infection of the skin and subcutaneous tissue, unspecified Status: Acute Assessment and Plan: - No necrotic tissue, no drainage - XR L foot no acute fracture or signs of osteo noted - initial WBC 11.3, CRP 8.4 - continue IV cefepime, Flagyl and vancomycin - general surgery consulted, appreciate recs - blood cultures pending (2) Type 2 diabetes mellitus: Qualifiers: Diabetes mellitus complication status: with hyperglycemia Diabetes mellitus detention insulin use: with detention use Qualified Code(s): E11.65 - Type 2 diabetes mellitus with hyperglycemia; Z79.4 - equipment operator intermodal yard (current) use of insulin Code(s): E11.9 - Type 2 diabetes mellitus without complications Status: Acute Assessment and Plan: - Hgb A1c 12.1 01/20/25 - reports compliance with home Lantus. Noncompliant with diabetic diet. - Accu-Cheks a.c. HS - Diabetic diet - Hold home oral anti-hyperglycemic medications - SSI and home Lantus. May need scheduled prandial insulin. - Goal for blood sugar to be under 200 as it will promote healing - senior health educator (3) Hypertension: Qualifiers: Hypertension type: essential hypertension Qualified Code(s): I10 - Essential (primary) hypertension Code(s): I10 - Essential (primary) hypertension Status: Acute Assessment and Plan: -Continue antihypertensive medications (4) CHF (congestive heart failure): Code(s): I50.9 - Heart failure, unspecified Status: Acute Assessment and Plan: - echo 2018 with EF 47% - Euvolemic -Continue oral Lasix and spironolactone -Continue potassium replacement (5) Hyperlipidemia: Code(s): E78.5 - Hyperlipidemia, unspecified Status: Acute Assessment and Plan: -Continue statin, Zetia (6) CAD (coronary artery disease): Code(s): I25.10 - Atherosclerotic heart disease of [place] coronary artery without angina pectoris Status: Acute Assessment and Plan: - remote history of NSTEMI s/p stents - continue ASA, statin, Zetia, metoprolol Plan DVT prophylaxis: Lovenox Code status: full code Dispo: TBD Subjective Date/time seen: 01/20/25 07:10 Interval history: Patient seen and examined at bedside. feels toe looks less swollen and red. Patient is experiencing blurry vision up close which he states is new for him. Exam Narrative: General: NAD Eyes: EOMI ENT: neck supple Cardiovascular: Regular rate and rhythm Respiratory: Clear to auscultation, respirations even and unlabored on RA Gastrointestinal: Soft, non tender Genitourinary: no suprapubic tenderness Musculoskeletal: No edema Skin: warm, dry, R 2nd toe with edema, ulceration, erythema with no drainage. Erythema extending into foot. Neuro: Alert and oriented x4. Cranial nerves II-XII intact. Face symmetric. Speech clear. Strength 5/5 in BUEs/BLEs. Sensation to light touch intact face, BUE/BLEs. No dysmetria BUE/BLEs. Psych: Mood appropriate Objective Data Vital Signs Vital Signs: Vital Signs - 24 hr 01/19/25 15:52 01/19/25 18:11 01/19/25 20:10 Temperature 97.9 F Pulse Rate 74 70 72 Respiratory Rate 14 16 20 Blood Pressure 146/98 H 156/85 H Pulse Oximetry 98 98 97 Oxygen Delivery Room Air Room Air Fraction of Inspired Oxygen 01/19/25 22:09 01/20/25 05:56 Temperature 97.1 F L 97.3 F L Pulse Rate 70 72 Respiratory Rate 16 16 Blood Pressure 138/73 139/65 Pulse Oximetry 95 94 Oxygen Delivery Fraction of Inspired Oxygen Intake/Output Intake/Output: Intake & Output 01/17/25 01/18/25 01/19/25 01/20/25 23:59 23:59 23:59 23:59 Intake Total 200 600 Output Total 800 Balance 200 -200 Meds/Results Medications: Active Medications Generic Name Dose Route Start Last Admin Trade Name Freq PRN Reason Stop Dose Admin Acetaminophen 650 mg 01/19/25 17:54 01/19/25 21:17 Acetaminophen 325 Mg Tablet PO 650 mg Q4H PRN Administration Mild Pain (1-3) or Fever Hydrocodone Bitart/Acetaminophen 1 tab 01/19/25 19:39 Hydrocodone/Acetaminophen (*Crx) 5-325 Mg Tablet PO Q4H PRN Moderate Pain (4-6) Aspirin 81 mg 01/20/25 09:00 Aspirin 81 Mg Enteric Tablet PO DAILY JESSICA Atorvastatin Calcium 80 mg 01/19/25 21:00 01/19/25 20:49 Atorvastatin 40 Mg Tablet PO 80 mg HS JESSICA Administration Dextrose 12.5 gm 01/19/25 19:37 Dextrose 50% 25 Gm/50 Ml Syringe IV PUSH PRN PRN Hypoglycemia Protocol Docusate Sodium 100 mg 01/20/25 09:00 Docusate Sodium 100 Mg Capsule PO Q12HR JESSICA Ezetimibe 10 mg 01/19/25 21:00 01/19/25 20:49 Ezetimibe 10 Mg Tablet PO 10 mg HS JESSICA Administration Enoxaparin Sodium 40 mg 01/20/25 09:00 Enoxaparin 40 Mg/0.4 Ml Syringe SUB-Q DAILY JESSICA Furosemide 20 mg 01/20/25 09:00 Furosemide 20 Mg Tablet PO BID JESSICA Glucagon 1 mg 01/19/25 19:37 Glucagon For Inj 1 Mg Vial IM PRN PRN Hypoglycemia Protocol Glucose 15 gm 01/19/25 19:37 Glucose Oral Gel 15 Gm Of Glucse In 37.5 Gm Tube PO PRN PRN Hypoglycemia Protocol Cefepime HCl 2 gm/ Sodium 50 mls @ 100 mls/hr 01/19/25 19:00 01/20/25 05:07 Chloride IVPB 100 mls/hr Q12H JESSICA Administration Metronidazole 500 mg in 100 mls @ 100 mls/hr 01/19/25 18:00 01/20/25 03:00 Flagyl 500 Mg/Iso Soln 100 Ml IVPB Infused Q8H JESSICA Infusion Dextrose 1,000 mls @ 100 mls/hr 01/19/25 19:37 Dextrose 5% 1,000 Ml IVPB PRN PRN Hypoglycemia Protocol Insulin Aspart 3 - 6 units 01/20/25 08:00 Insulin Aspart (*Bkc) 100 Units/Ml SUB-Q [facility] Protocol Insulin Glargine 40 units 01/19/25 21:00 01/19/25 21:20 Insulin Glargine (*Bkc) 100 Units/Ml SUB-Q 40 units HS JESSICA Administration Losartan Potassium 100 mg 01/20/25 09:00 Losartan Potassium 100 Mg Tablet PO DAILY JESSICA Metoprolol Succinate 75 mg 01/20/25 09:00 Metoprolol Succinate Ext Rel 25 Mg Tabcr PO DAILY JESSICA Potassium Chloride 20 meq 01/19/25 21:00 01/19/25 20:56 Potassium Chloride 20 Meq Er Tablet PO 20 meq HS JESSICA Administration Spironolactone 25 mg 01/20/25 09:00 Spironolactone 25 Mg Tablet PO DAILY JESSICA Vancomycin HCl 1 each 01/19/25 17:20 Vancomycin For Acute Kidney Injury IVPB PRN PRN Vancomycin Protocol Radiology Results: ITS Impressions Foot X-Ray 01/19/25 17:30 Impression: No acute fracture or malalignment. Labs Labs: Laboratory Results - last 24 hr 01/19/25 01/19/25 01/19/25 16:16 17:25 21:11 WBC 11.3 H RBC 4.09 L Hgb 12.0 L Hct 35.2 L MCV 86.1 MCH 29.3 MCHC 34.1 RDW 12.2 Plt Count 264 MPV 11.1 H Immature Gran % (Auto) 0.4 Neut % (Auto) 62.3 Lymph % (Auto) 24.0 [place] % (Auto) 9.7 H Eos % (Auto) 3.0 Baso % (Auto) 0.6 Lymph # (Auto) 2.70 [place] # (Auto) 1.1 H Eos # (Auto) 0.3 Baso # (Auto) 0.1 Abs Immat Gran (auto) 0.04 H Absolute Neuts (auto) 7.0 H Absolute Nucleated RBC 0.000 Nucleated RBC % 0.0 Sodium 135 L Potassium 4.0 Chloride 103 Carbon Dioxide 25 Anion Gap 7 BUN 25 H Creatinine 1.22 Estim Creat Clear Calc 68 Estimated GFR > 60 Glucose 196 H POC Capillary Glucose 217 H Lactic Acid 1.4 Calcium 8.7 Total Bilirubin 0.6 AST 25 ALT 16 Alkaline Phosphatase 115 C-Reactive Protein 8.4 H Total Protein 7.4 Albumin 3.8 01/20/25 05:45 WBC 8.8 RBC 3.73 L Hgb 10.8 L Hct 32.8 L MCV 87.9 MCH 29.0 MCHC 32.9 RDW 12.3 Plt Count 243 MPV 11.3 H Immature Gran % (Auto) 0.5 Neut % (Auto) 63.7 Lymph % (Auto) 20.1 [place] % (Auto) 11.0 H Eos % (Auto) 4.0 Baso % (Auto) 0.7 Lymph # (Auto) 1.77 [place] # (Auto) 1.0 H Eos # (Auto) 0.4 H Baso # (Auto) 0.1 Abs Immat Gran (auto) 0.04 H Absolute Neuts (auto) 5.6 Absolute Nucleated RBC 0.000 Nucleated RBC % 0.0 Sodium 137 Potassium 3.8 Chloride 106 Carbon Dioxide 24 Anion Gap 7 BUN 20 Creatinine 0.82 Estim Creat Clear Calc 100 Estimated GFR > 60 Glucose 96 POC Capillary Glucose Lactic Acid Calcium 8.1 L Total Bilirubin AST ALT Alkaline Phosphatase C-Reactive Protein Total Protein Albumin
[2025-01-20 07:11] LABS: Hemoglobin A1C 12.1 % (<5.7)
[2025-01-20] MEDS: VANCOMYCIN 1,500 MG/NS 500 ML 1,500 MG/500 ML BAG 250 MG IVPB (07:52)
[2025-01-20] MEDS: ASPIRIN 81 MG ENTERIC TABLET PO (07:55)
[2025-01-20 07:56] VITALS: PULSE 72
[2025-01-20] MEDS: SPIRONOLACTONE 25 MG TABLET PO (07:56)
[2025-01-20] MEDS: DOCUSATE SODIUM 100 MG CAPSULE PO (07:56)
[2025-01-20] MEDS: METOPROLOL SUCCINATE EXT REL 25 MG TABCR 75 MG PO (07:56)
[2025-01-20] MEDS: FUROSEMIDE 20 MG TABLET PO ×2 (07:56→16:34)
[2025-01-20] MEDS: LOSARTAN POTASSIUM 100 MG TABLET PO (07:56)
[2025-01-20 08:00] VITALS: BP 147/77; PULSE 73; RESP 18; TEMP 36.2; O2SAT 97
[2025-01-20] MEDS: ENOXAPARIN 40 MG/0.4 ML SYRINGE SUB-Q (08:50)
--- NOTE | 2025-01-20 10:25 | PC.NURSE ---
To CT per wheelchair.
--- NOTE | 2025-01-20 10:31 | PC.NURSE ---
Returned to room from CT per wheelchair.
--- NOTE | 2025-01-20 13:03 | PM.CNGS ---
Assessment and Plan Assessment and plan (1) Cellulitis of second toe, right: Code(s): L03.031 - Cellulitis of right toe Status: Acute Assessment and Plan: Much improved from last night with IV antibiotics including cefepime, metronidazole, vancomycin. No purulent drainage noted but there are some superficial eschars that may require debridement. No sign of osteomyelitis on plain films. Continue present treatment for now. Will start Xeroform gauze dressings today. 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 Hemoglobin A1c 12.1. Will need better diabetic control for this to heal. (4) CAD (coronary artery disease): Qualifiers: Coronary Disease-Associated Artery/Lesion type: [place] artery [place] vs. transplanted heart: [place] heart Associated angina: without angina Qualified Code(s): I25.10 - Atherosclerotic heart disease of [place] coronary artery without angina pectoris Code(s): I25.10 - Atherosclerotic heart disease of [place] coronary artery without angina pectoris Status: Chronic (5) Coronary angioplasty status: Code(s): Z98.61 - Coronary angioplasty status Status: Chronic Assessment and Plan: On 81 mg aspirin History of Present Illness Consult details Consult date: 01/20/25 Reason for consult: other (R second toe infection) Requesting physician: Ofelia Bedoya PA Narrative: Patient is a 44-year-old man who has had insulin-dependent diabetes for about 15 years. He works hanging [employer]. He noticed 3 or 4 days ago, that he was having some skin changes and swelling to his right 2nd toe. He came to the emergency room with this as it was very red and swollen yesterday. His showed me a picture and it did look bright red with a lot of swelling in both the forefoot and the 2nd toe. Patient had plain films in the emergency room which were negative for changes of osteomyelitis. He has diabetic neuropathy and little pain associated with this. He has not had any other diabetic foot infections. He has a history of congestive heart failure and coronary artery disease. He has had coronary stents placed in the past. He tells me that the right foot looks much better today than it did even last night. He is seen now in consultation. Review of Systems Review of Systems: All systems reviewed & are unremarkable except as noted in HPI and below (HPI) [facility] Past Medical History Medical History (Updated 01/20/25 @ 13:18 by Jose Brito MD) CHF (congestive heart failure) Obesity Hypertension Type 2 diabetes mellitus Hyperlipidemia Broken wrist Coronary stent patent Surgical History Surgical History (Updated 01/20/25 @ 13:18 by Jose Brito MD) History of toe surgery Coronary angioplasty status Family History Family History Father Diabetes mellitus Hypertension Family history of cardiovascular disease Family history of coronary artery disease Mother Diabetes mellitus Hypertension Family history of cardiovascular disease Family history of coronary artery disease Father Heart disease Mother Heart disease Social History Social History Smoking status: Current some day smoker Tobacco type: cigars (special occasions, does not smoke every week) Second hand tobacco smoke exposure: Yes Additional smoking assessment comments: Patient stated he only smokes this selin once in a while. Alcohol intake: former Alcohol use details: Patient stated drinks only on occasion. Substance use: never Substance use type: does not use Lack of Transportation: No Lack of Food: Never True Current Housing: I Do Not Have Housing Concerned About Future Housing: No Difficulty Paying Gas/Electric Bills: No Difficulty Paying for Meds: No Currently Unemployed: No Education: Trade/Vocational Certificate Difficulty w/ Childcare or Family Care: No Living arrangements: with family Spiritual care concerns: No Meds Home Medications and Allergies Home Medications ?Medication ?Instructions ?Recorded ?Confirmed ?Type aspirin 81 mg tablet,delayed 81 mg PO DAILY 01/17/19 01/19/25 History release (Adult Aspirin Regimen) blood sugar diagnostic (Advocate #300 ea 02/19/22 01/19/25 Rx Test Strips) blood-glucose meter (Blood Glucose #1 ea 02/19/22 01/19/25 Rx Monitoring kit) lancets 33 gauge (BD Ultra Fine #300 ea 02/19/22 01/19/25 Rx Lancets) furosemide 20 mg tablet (Lasix) 20 mg PO BID #30 tabs 04/30/24 01/19/25 Rx spironolactone 25 mg tablet 25 mg PO DAILY #90 tabs 08/27/24 01/19/25 Rx pen needle, diabetic 31 gauge x #300 ea 09/11/24 01/19/25 Rx 3/16 (1st Tier Unifine Pentips) glimepiride 4 mg tablet 8 mg (2 x 4 mg) PO QAM #180 tabs 09/20/24 01/19/25 Rx metoprolol succinate 50 mg 75 mg (1.5 x 50 mg) PO DAILY #135 09/20/24 01/19/25 Rx tablet,extended release 24 hr tabs atorvastatin 80 mg tablet 80 mg PO HS 01/19/25 01/19/25 History ezetimibe 10 mg tablet 10 mg PO HS 01/19/25 01/19/25 History insulin glargine 100 unit/mL (3 50 unit subcut HS 01/19/25 01/19/25 History mL) subcutaneous pen (Basaglar KwikPen U-100 Insulin) losartan 100 mg tablet 100 mg PO DAILY 01/19/25 01/19/25 History metformin 500 mg tablet 1,000 mg PO BID 01/19/25 01/19/25 History potassium chloride 20 mEq 20 meq PO HS 01/19/25 01/19/25 History tablet,extended release(part/cryst) (Klor-Con M) Allergies Allergy/AdvReac Type Severity Reaction Status Date / Time No Known Allergies Allergy Verified 01/19/25 19:47 Vital Signs Vital Signs - 24 hr 01/19/25 15:52 01/19/25 18:11 01/19/25 20:10 Temperature 36.6 C Pulse Rate 74 70 72 Respiratory Rate 14 16 20 Blood Pressure 146/98 H 156/85 H Pulse Oximetry 98 98 97 Oxygen Delivery Room Air Room Air Fraction of Inspired Oxygen 21 01/19/25 22:09 01/20/25 05:56 01/20/25 07:56 Temperature 36.2 C L 36.3 C L Pulse Rate 70 72 72 Respiratory Rate 16 16 Blood Pressure 138/73 139/65 Pulse Oximetry 95 94 Oxygen Delivery Fraction of Inspired Oxygen 01/20/25 08:00 01/20/25 08:00 Temperature 36.2 C L Pulse Rate 73 Respiratory Rate 18 Blood Pressure 147/77 H Pulse Oximetry 97 Oxygen Delivery Room Air Fraction of Inspired Oxygen Exam Const: General: cooperative, healthy appearing, comfortable, no acute distress, alert and awake Nutritional Appearance: overweight Orientation/consciousness: patient oriented x3 HENMT: Head: normocephalic and atraumatic Mouth: Yes Normal oral and palatal mucosa present Eyes: Conjunctivae: conjunctivae normal Pupils: Equal, round and reactive pupils present EOM: EOMs intact bilaterally Neck: Neck: normal visual inspection, no lymphadenopathy and nontender Resp: Effort & Inspection: normal respiratory effort Auscultation: clear to auscultation bilaterally Cardio: Rate: regular rate Rhythm: regular rhythm Heart sounds: no gallops, no murmurs and no rubs GI: Inspection: non-distended GI Palp: Yes Soft to palpation, No Tenderness to palpation present (GI), No Hepatomegaly present and No Splenomegaly present Skin: Lesions: no lesions Rashes: no rashes Neuro: General: no focal motor deficits and CN's II-XI intact bilaterally Cranial nerves: Yes Equal, round and reactive pupils present, Yes Bilaterally intact EOM present, Yes facial symmetry and Yes Midline tongue present Speech: normal speech Motor exam (neuro): 5/5 motor strength present throughout and Motor abnormalities not present Extrem: General: no clubbing, cyanosis or edema and edema Right lower extremity: foot (Mild or pink erythema distal foot, 2nd toe mildly erythematous and swollen) Details: abnormal to inspection (Superficial eschar distal and middle phalanx) Details: erythematous and vascular exam Details: normal capillary refill; dorsalis pedis pulse absent, posterior tibial pulse absent, not cool and no cyanosis; no tenderness and no crepitus Psych: Affect: normal affect Thought process: Normal thought process present Insight: Good insight present (Psych) Results Labs 01/20/25 05:45 01/20/25 05:45 Labs: Abnormal lab results 01/19/25 01/19/25 01/20/25 Range/Units 16:16 21:11 05:45 WBC 11.3 H (4.5-10.0) K/mm3 RBC 4.09 L 3.73 L (4.6-6.20) M/mm3 Hgb 12.0 L 10.8 L (14.0-18.0) g/dL Hct 35.2 L 32.8 L (42.0-52.0) % MPV 11.1 H 11.3 H (7.4-10.4) fl [place] % (Auto) 9.7 H 11.0 H (2.6-8.5) % [place] # (Auto) 1.1 H 1.0 H (0.1-0.6) K/mm3 Eos # (Auto) 0.4 H (0-0.3) K/mm3 Abs Immat Gran (auto) 0.04 H 0.04 H (0.00-0.031) K/mm3 Absolute Neuts (auto) 7.0 H (1.3-6.7) K/mm3 Sodium 135 L (137-145) mmol/L BUN 25 H (9-20) mg/dL Glucose 196 H (65-110) mg/dL POC Capillary Glucose 217 H (65-105) mg/dl Hemoglobin A1c 12.1 H (<5.7) % Calcium 8.1 L (8.4-10.2) mg/dL C-Reactive Protein 8.4 H (<1.0) mg/dL 01/20/25 Range/Units 11:14 WBC (4.5-10.0) K/mm3 RBC (4.6-6.20) M/mm3 Hgb (14.0-18.0) g/dL Hct (42.0-52.0) % MPV (7.4-10.4) fl [place] % (Auto) (2.6-8.5) % [place] # (Auto) (0.1-0.6) K/mm3 Eos # (Auto) (0-0.3) K/mm3 Abs Immat Gran (auto) (0.00-0.031) K/mm3 Absolute Neuts (auto) (1.3-6.7) K/mm3 Sodium (137-145) mmol/L BUN (9-20) mg/dL Glucose (65-110) mg/dL POC Capillary Glucose 154 H (65-105) mg/dl Hemoglobin A1c (<5.7) % Calcium (8.4-10.2) mg/dL C-Reactive Protein (<1.0) mg/dL Diabetes panel 01/19/25 01/20/25 Range/Units 16:16 05:45 Sodium 135 L 137 (137-145) mmol/L Potassium 4.0 3.8 (3.4-5.0) mmol/L Chloride 103 106 (98-107) mmol/L Carbon Dioxide 25 24 (22-30) mmol/L BUN 25 H 20 (9-20) mg/dL Creatinine 1.22 0.82 (0.7-1.3) mg/dL Glucose 196 H 96 (65-110) mg/dL Hemoglobin A1c 12.1 H (<5.7) % Calcium 8.7 8.1 L (8.4-10.2) mg/dL AST 25 (17-59) U/L ALT 16 (6-50) U/L Alkaline Phosphatase 115 (38-126) U/L Total Protein 7.4 (6.3-8.2) g/dL Albumin 3.8 (3.5-5.1) g/dL Calcium panel 01/19/25 01/20/25 Range/Units 16:16 05:45 Calcium 8.7 8.1 L (8.4-10.2) mg/dL Albumin 3.8 (3.5-5.1) g/dL Pituitary panel 01/19/25 01/20/25 Range/Units 16:16 05:45 Sodium 135 L 137 (137-145) mmol/L Potassium 4.0 3.8 (3.4-5.0) mmol/L Chloride 103 106 (98-107) mmol/L Carbon Dioxide 25 24 (22-30) mmol/L BUN 25 H 20 (9-20) mg/dL Creatinine 1.22 0.82 (0.7-1.3) mg/dL Glucose 196 H 96 (65-110) mg/dL Calcium 8.7 8.1 L (8.4-10.2) mg/dL Adrenal panel 01/19/25 01/20/25 Range/Units 16:16 05:45 Sodium 135 L 137 (137-145) mmol/L Potassium 4.0 3.8 (3.4-5.0) mmol/L Chloride 103 106 (98-107) mmol/L Carbon Dioxide 25 24 (22-30) mmol/L BUN 25 H 20 (9-20) mg/dL Creatinine 1.22 0.82 (0.7-1.3) mg/dL Glucose 196 H 96 (65-110) mg/dL Calcium 8.7 8.1 L (8.4-10.2) mg/dL Total Bilirubin 0.6 (0.2-1.3) mg/dL AST 25 (17-59) U/L ALT 16 (6-50) U/L Alkaline Phosphatase 115 (38-126) U/L Total Protein 7.4 (6.3-8.2) g/dL Albumin 3.8 (3.5-5.1) g/dL All other labs normal.
[2025-01-20 14:00] VITALS: BP 114/64; PULSE 74; RESP 19; TEMP 37.3; O2SAT 97
[2025-01-20 16:00] VITALS: BP 140/81; PULSE 75; RESP 19; TEMP 37.2; O2SAT 97
[2025-01-20] MEDS: INSULIN ASPART (*BKC) 100 UNITS/ML SUB-Q ×2 (16:34→21:30)
[2025-01-20] MEDS: VANCOMYCIN 1,500 MG/NS 500 ML 1,500 MG/500 ML BAG 175 MG IVPB (21:27)
[2025-01-20] MEDS: EZETIMIBE 10 MG TABLET PO (21:28)
[2025-01-20] MEDS: POTASSIUM CHLORIDE 20 MEQ ER TABLET PO (21:28)
[2025-01-20] MEDS: ATORVASTATIN 40 MG TABLET 80 MG PO (21:28)
[2025-01-20] MEDS: INSULIN GLARGINE (*BKC) 100 UNITS/ML 40 UNITS SUB-Q (21:29)
[2025-01-20 22:00] VITALS: BP 151/76; PULSE 78; RESP 18; TEMP 37.1; O2SAT 96
[2025-01-21] MEDS: metroNIDAZOLE 500 MG/ISO 100ML 500 MG/100 ML BAG 100 MG IVPB ×3 (01:03→16:36)
[2025-01-21 06:00] VITALS: BP 138/56; PULSE 72; RESP 18; TEMP 36.1; O2SAT 96
[2025-01-21] MEDS: CEFEPIME 2 GM in SODIUM CHLORIDE 0.9% IV 50 ML 100 ML IVPB ×2 (06:03→17:45)
[2025-01-21 07:06] LABS: Hematocrit 32.2 % (42.0-52.0); Hemoglobin 11.0 g/dL (14.0-18.0); Immature Granulocyte Percent A 0.6 % (0-0.5); Lymphocytes Absolute Auto 1.95 K/mm3 (0.9-3.2); Mean Corpuscular HGB Conc 34.2 g/dl (32-36); Mean Corpuscular Hemoglobin 29.2 pg (26-34); Mean Corpuscular Volume 85.4 fl (80-100); Nucleated Red Blood Cells Absolute Auto 0.000 K/mm3 (0.0-0.012); Nucleated Red Blood Cells Perc 0.0 % (0.0-0.2); Platelet Count Result 244 k/mm3 (150-375); Red Blood Count 3.77 M/mm3 (4.6-6.20); White Blood Count 9.0 K/mm3 (4.5-10.0)
--- NOTE | 2025-01-21 07:26 | PCWOUND ---
WOCN NOTE Received referral for diabetic foot wound. Patient is being followed by general surgery and has wound care orders. No WOCN assessment needed at this time.
[2025-01-21 07:32] LABS: Alanine Aminotransferase 14 U/L (6-50); Albumin Level 3.0 g/dL (3.5-5.1); Alkaline Phosphatase 98 U/L (38-126); Anion Gap 4 mmol/L (4-12); Aspartate Amino Transferase 28 U/L (17-59); Bilirubin,Total 0.4 mg/dL (0.2-1.3); Blood Urea Nitrogen 12 mg/dL (9-20); CRP 3.7 mg/dL (<1.0); Calcium 8.4 mg/dL (8.4-10.2); Carbon Dioxide 25 mmol/L (22-30); Chloride 109 mmol/L (98-107); Estimated CRCL calculation 102 ml/min; Estimated Glomerular Filt Rate > 60; Glucose 101 mg/dL (65-110); Potassium 4.3 mmol/L (3.4-5.0); Sodium 138 mmol/L (137-145); Total Protein 6.2 g/dL (6.3-8.2)
--- NOTE | 2025-01-21 07:51 | P.PNIM_ITS ---
Progress Note: A&P Assessment and Plan (1) Diabetic foot infection: Code(s): E11.628 - Type 2 diabetes mellitus with other skin complications; L08.9 - Local infection of the skin and subcutaneous tissue, unspecified Status: Acute Assessment and Plan: - presented with swelling and drainage of - XR L foot no acute fracture or signs of osteo noted - initial WBC 11.7, CRP 8.4 - improving - continue IV cefepime, Flagyl and vancomycin - general surgery consulted, planning for bedside debridement today - blood cultures pending (2) Type 2 diabetes mellitus: Qualifiers: Diabetes mellitus complication status: with hyperglycemia Diabetes mellitus mcfp insulin use: with mcfp use Qualified Code(s): E11.65 - Type 2 diabetes mellitus with hyperglycemia; Z79.4 - correction (current) use of insulin Code(s): E11.9 - Type 2 diabetes mellitus without complications Status: Chronic Assessment and Plan: - Hgb A1c 12.1 01/20/25 - reports compliance with home Lantus. Noncompliant with diabetic diet. - Hold home oral anti-hyperglycemic medications (metformin, glimepiride) - Accu-Cheks a.c. HS - Diabetic diet - continue Lantus 40u, moderate dose SSI. Schedule Novolog 5u with lunch and dinner - development educator/dietitian consulted (3) Hypertension: Qualifiers: Hypertension type: essential hypertension Qualified Code(s): I10 - Essential (primary) hypertension Code(s): I10 - Essential (primary) hypertension Status: Acute Assessment and Plan: -BP 142/80 -Continue home losartan, lasix, metoprolol, spironolactone, (4) CHF (congestive heart failure): Code(s): I50.9 - Heart failure, unspecified Status: Acute Assessment and Plan: - echo 2018 with EF 47% - Euvolemic -Continue losartan, metoprolol, lasix, Aldactone -Continue potassium replacement (5) Hyperlipidemia: Code(s): E78.5 - Hyperlipidemia, unspecified Status: Acute Assessment and Plan: -Continue statin, Zetia (6) CAD (coronary artery disease): Qualifiers: Associated angina: without angina Coronary Disease-Associated Artery/Lesion type: [place] artery [place] vs. transplanted heart: [place] heart Qualified Code(s): I25.10 - Atherosclerotic heart disease of [place] coronary artery without angina pectoris Code(s): I25.10 - Atherosclerotic heart disease of [place] coronary artery without angina pectoris Status: Chronic Assessment and Plan: - remote history of NSTEMI s/p stents - continue ASA, statin, Zetia, metoprolol (7) Blurry vision: Code(s): H53.8 - Other visual disturbances Status: Acute Assessment and Plan: -Patient complained of new onset blurry vision with near objects/writing in AM 01/20. No double vision and able to see far objects. - no other focal deficits -CT head with no acute process. - not an expected side effect of antibiotics - Denies recent eye exam. Suspect patient is developing age related myopia vs. diabetic retinopathy. Encouraged close outpatient follow-up for diabetic eye exam. Plan DVT prophylaxis: Lovenox Code status: full code Dispo: 1-2 days pending surgery recs Subjective Date/time seen: 01/21/25 07:51 Interval history: Patient seen and examined at bedside. States blurry vision mildly improved today. Toe/foot continues to improve on IV abx. Provided more diabetic education this AM. Exam Narrative: General: NAD Eyes: EOMI ENT: neck supple Cardiovascular: Regular rate and rhythm Respiratory: Clear to auscultation, respirations even and unlabored on RA Gastrointestinal: Soft, non tender Genitourinary: no suprapubic tenderness Musculoskeletal: No edema Skin: warm, dry, R 2nd toe dressing CDI. Erythema extending into foot (improved). Neuro: Alert and oriented x4. Psych: Mood appropriate Objective Data Vital Signs Vital Signs: Vital Signs - 24 hr 01/20/25 07:56 01/20/25 08:00 01/20/25 08:00 Temperature 97.1 F L Pulse Rate 72 73 Respiratory Rate 18 Blood Pressure 147/77 H Pulse Oximetry 97 Oxygen Delivery Room Air 01/20/25 14:00 01/20/25 16:00 01/20/25 20:00 Temperature 99.2 F 98.9 F Pulse Rate 74 75 Respiratory Rate 19 19 Blood Pressure 114/64 140/81 Pulse Oximetry 97 97 Oxygen Delivery Room Air 01/20/25 22:00 01/21/25 06:00 Temperature 98.8 F 97.0 F L Pulse Rate 78 72 Respiratory Rate 18 18 Blood Pressure 151/76 H 138/56 L Pulse Oximetry 96 96 Oxygen Delivery Intake/Output Intake/Output: Intake & Output 01/18/25 01/19/25 01/20/25 01/21/25 23:59 23:59 23:59 23:59 Intake Total 200 2538 500 Output Total 1700 500 Balance 200 838 0 Meds/Results Medications: Active Medications Generic Name Dose Route Start Last Admin Trade Name Freq PRN Reason Stop Dose Admin Acetaminophen 650 mg 01/19/25 17:54 01/19/25 21:17 Acetaminophen 325 Mg Tablet PO 650 mg Q4H PRN Administration Mild Pain (1-3) or Fever Hydrocodone Bitart/Acetaminophen 1 tab 01/19/25 19:39 Hydrocodone/Acetaminophen (*Crx) 5-325 Mg Tablet PO Q4H PRN Moderate Pain (4-6) Aspirin 81 mg 01/20/25 09:00 01/20/25 07:55 Aspirin 81 Mg Enteric Tablet PO 81 mg DAILY JESSICA Administration Atorvastatin Calcium 80 mg 01/19/25 21:00 01/20/25 21:28 Atorvastatin 40 Mg Tablet PO 80 mg HS JESSICA Administration Dextrose 12.5 gm 01/19/25 19:37 Dextrose 50% 25 Gm/50 Ml Syringe IV PUSH PRN PRN Hypoglycemia Protocol Docusate Sodium 100 mg 01/20/25 09:00 01/20/25 21:29 Docusate Sodium 100 Mg Capsule PO Not Given Q12HR JESSICA Ezetimibe 10 mg 01/19/25 21:00 01/20/25 21:28 Ezetimibe 10 Mg Tablet PO 10 mg HS JESSICA Administration Enoxaparin Sodium 40 mg 01/20/25 09:00 01/20/25 08:50 Enoxaparin 40 Mg/0.4 Ml Syringe SUB-Q 40 mg DAILY JESSICA Administration Furosemide 20 mg 01/20/25 09:00 01/20/25 16:34 Furosemide 20 Mg Tablet PO 20 mg BID JESSICA Administration Glucagon 1 mg 01/19/25 19:37 Glucagon For Inj 1 Mg Vial IM PRN PRN Hypoglycemia Protocol Glucose 15 gm 01/19/25 19:37 Glucose Oral Gel 15 Gm Of Glucse In 37.5 Gm Tube PO PRN PRN Hypoglycemia Protocol Cefepime HCl 2 gm/ Sodium 50 mls @ 100 mls/hr 01/19/25 19:00 01/21/25 06:03 Chloride IVPB 100 mls/hr Q12H JESSICA Administration Metronidazole 500 mg in 100 mls @ 100 mls/hr 01/19/25 18:00 01/21/25 01:03 Flagyl 500 Mg/Iso Soln 100 Ml IVPB 100 mls/hr Q8H JESSICA Administration Dextrose 1,000 mls @ 100 mls/hr 01/19/25 19:37 Dextrose 5% 1,000 Ml IVPB PRN PRN Hypoglycemia Protocol Vancomycin HCl 1,750 mg in 500 mls @ 250 mls/hr 01/21/25 08:00 Vancomycin 1,750 Mg/Ns 500 Ml IVPB Q12H JESSICA Insulin Aspart 3 - 6 units 01/20/25 08:00 01/20/25 16:34 Insulin Aspart (*Bkc) 100 Units/Ml SUB-Q 3 units TIDWM JESSICA Administration Protocol Insulin Glargine 40 units 01/19/25 21:00 01/20/25 21:29 Insulin Glargine (*Bkc) 100 Units/Ml SUB-Q 40 units HS JESSICA Administration Losartan Potassium 100 mg 01/20/25 09:00 01/20/25 07:56 Losartan Potassium 100 Mg Tablet PO 100 mg DAILY JESSICA Administration Metoprolol Succinate 75 mg 01/20/25 09:00 01/20/25 07:56 Metoprolol Succinate Ext Rel 25 Mg Tabcr PO 75 mg DAILY JESSICA Administration Potassium Chloride 20 meq 01/19/25 21:00 01/20/25 21:28 Potassium Chloride 20 Meq Er Tablet PO 20 meq HS JESSICA Administration Spironolactone 25 mg 01/20/25 09:00 01/20/25 07:56 Spironolactone 25 Mg Tablet PO 25 mg DAILY JESSICA Administration Radiology Results: ITS Impressions Foot X-Ray 01/19/25 17:30 Impression: No acute fracture or malalignment. Head CT 01/20/25 10:33 IMPRESSION: 1. No acute intracranial pathology. Labs Labs: Laboratory Results - last 24 hr 01/20/25 01/20/25 01/20/25 11:14 16:20 21:12 WBC RBC Hgb Hct MCV MCH MCHC RDW Plt Count MPV Immature Gran % (Auto) Neut % (Auto) Lymph % (Auto) [place] % (Auto) Eos % (Auto) Baso % (Auto) Lymph # (Auto) [place] # (Auto) Eos # (Auto) Baso # (Auto) Abs Immat Gran (auto) Absolute Neuts (auto) Absolute Nucleated RBC Nucleated RBC % Sodium Potassium Chloride Carbon Dioxide Anion Gap BUN Creatinine Estim Creat Clear Calc Estimated GFR Glucose POC Capillary Glucose 154 H 240 H 275 H Calcium Total Bilirubin AST ALT Alkaline Phosphatase C-Reactive Protein Total Protein Albumin Vancomycin Trough 01/21/25 01/21/25 01/21/25 01:02 06:59 07:36 WBC 9.0 RBC 3.77 L Hgb 11.0 L Hct 32.2 L MCV 85.4 MCH 29.2 MCHC 34.2 RDW 12.2 Plt Count 244 MPV 10.3 Immature Gran % (Auto) 0.6 H Neut % (Auto) 62.1 Lymph % (Auto) 21.6 [place] % (Auto) 11.1 H Eos % (Auto) 3.8 Baso % (Auto) 0.8 Lymph # (Auto) 1.95 [place] # (Auto) 1.0 H Eos # (Auto) 0.3 Baso # (Auto) 0.1 Abs Immat Gran (auto) 0.05 H Absolute Neuts (auto) 5.6 Absolute Nucleated RBC 0.000 Nucleated RBC % 0.0 Sodium 138 Potassium 4.3 Chloride 109 H Carbon Dioxide 25 Anion Gap 4 BUN 12 D Creatinine 0.80 Estim Creat Clear Calc 102 Estimated GFR > 60 Glucose 101 POC Capillary Glucose 126 H 110 H Calcium 8.4 Total Bilirubin 0.4 AST 28 ALT 14 Alkaline Phosphatase 98 C-Reactive Protein 3.7 H Total Protein 6.2 L Albumin 3.0 L Vancomycin Trough 13.5 Quality VTE Prophylaxis VTE prophylaxis: pharmacologic ordered
[2025-01-21 09:10] VITALS: PULSE 73
[2025-01-21] MEDS: METOPROLOL SUCCINATE EXT REL 25 MG TABCR 75 MG PO (09:10)
[2025-01-21] MEDS: FUROSEMIDE 20 MG TABLET PO ×2 (09:10→16:36)
[2025-01-21] MEDS: SPIRONOLACTONE 25 MG TABLET PO (09:12)
[2025-01-21] MEDS: ASPIRIN 81 MG ENTERIC TABLET PO (09:12)
[2025-01-21] MEDS: LOSARTAN POTASSIUM 100 MG TABLET PO (09:12)
[2025-01-21] MEDS: ENOXAPARIN 40 MG/0.4 ML SYRINGE SUB-Q (09:13)
[2025-01-21] MEDS: VANCOMYCIN 1,750 MG/NS 500 ML 1,750 MG/500 ML BAG 250 MG IVPB ×2 (09:13→20:57)
[2025-01-21 09:55] VITALS: BMI 37.0
[2025-01-21 13:31] VITALS: BP 142/80; PULSE 72; RESP 20; TEMP 36.8; O2SAT 95
--- NOTE | 2025-01-21 14:51 | P.PNGS_ITS ---
Progress Note: A&P Assessment and Plan (1) Cellulitis of second toe, right: Code(s): L03.031 - Cellulitis of right toe Status: Acute Assessment and Plan: Right 2nd toe cellulitis improving. Wound care consulted and recommendations noted. ABIs today showed evidence of peripheral vascular insufficiency on the right lower extremity, which makes it more ideal to avoid toe amputation unless absolutely necessary. We would recommend continuing conservative management with antibiotics and local wound care to try and allow this ulcer to heal. There is some yellow necrotic tissue in the wound bed that would benefit from debridement. I recommended bedside excisional debridement of right 2nd toe ulcer. Description of the procedure, risks, benefits, and alternatives were discussed. The patient agrees to proceed and I will plan to do this today. (2) Diabetic foot infection: Code(s): E11.628 - Type 2 diabetes mellitus with other skin complications; L08.9 - Local infection of the skin and subcutaneous tissue, unspecified Status: Acute Assessment and Plan: Improving with conservative management and wound care. See plan above. (3) Peripheral vascular insufficiency: Code(s): I73.9 - Peripheral vascular disease, unspecified Status: Acute Assessment and Plan: ABIs done today. Unable to occlude vessels at the ankles. Waveforms are at least biphasic, but there is significant disparity in the right TBI compared to left with right TBI 0.53 and left is 0.94. See plan above. (4) Type 2 diabetes mellitus: Qualifiers: Diabetes mellitus complication status: with hyperglycemia Diabetes mellitus intermediate manager insulin use: with [facility] use Qualified Code(s): E11.65 - Type 2 diabetes mellitus with hyperglycemia; Z79.4 - [facility] (current) use of insulin Code(s): E11.9 - Type 2 diabetes mellitus without complications Status: Chronic Assessment and Plan: Hemoglobin A1c 12.1. Will need better diabetic control for this to heal. (5) CAD (coronary artery disease): Qualifiers: Associated angina: without angina Coronary Disease-Associated Artery/Lesion type: [place] artery [place] vs. transplanted heart: [place] heart Qualified Code(s): I25.10 - Atherosclerotic heart disease of [place] coronary artery without angina pectoris Code(s): I25.10 - Atherosclerotic heart disease of [place] coronary artery without angina pectoris Status: Chronic (6) Coronary angioplasty status: Code(s): Z98.61 - Coronary angioplasty status Status: Chronic Assessment and Plan: On 81 mg aspirin Plan I have discussed the patient's case and plan of care with Dr. Brito. Subjective Subjective Date/Time Seen: 01/21/25 14:51 Patient reports: no new complaints and afebrile Interval history: Patient without any acute changes overnight. No complaints today. Feels his swelling and redness on his right foot continues to improve. Exam Extrem: Other: Right 2nd toe ulcer with no toenail on the 2nd toe, the ulcer measures 1 x 1 cm with the entire wound bed with yellow slough, does not probe to bone, no purulent drainage. Erythema and swelling of the entire 2nd toe and extending to the dorsal forefoot, but both erythema and swelling improved Objective Data Vital Signs Vital Signs: Vital Signs - 24 hr 01/20/25 16:00 01/20/25 20:00 01/20/25 22:00 Temperature 98.9 F 98.8 F Pulse Rate 75 78 Respiratory Rate 19 18 Blood Pressure 140/81 151/76 H Pulse Oximetry 97 96 Oxygen Delivery Room Air 01/21/25 06:00 01/21/25 09:10 01/21/25 13:31 Temperature 97.0 F L 98.2 F Pulse Rate 72 73 72 Respiratory Rate 18 20 Blood Pressure 138/56 L 142/80 H Pulse Oximetry 96 95 Oxygen Delivery Intake/Output Intake/Output: Intake & Output 01/18/25 01/19/25 01/20/25 01/21/25 23:59 23:59 23:59 23:59 Intake Total 200 2538 930 Output Total 1700 500 Balance 200 838 430 Meds/Results Medications: Active Medications Generic Name Dose Route Start Last Admin Trade Name Freq PRN Reason Stop Dose Admin Acetaminophen 650 mg 01/19/25 17:54 01/19/25 21:17 Acetaminophen 325 Mg Tablet PO 650 mg Q4H PRN Administration Mild Pain (1-3) or Fever Hydrocodone Bitart/Acetaminophen 1 tab 01/19/25 19:39 Hydrocodone/Acetaminophen (*Crx) 5-325 Mg Tablet PO Q4H PRN Moderate Pain (4-6) Aspirin 81 mg 01/20/25 09:00 01/21/25 09:12 Aspirin 81 Mg Enteric Tablet PO 81 mg DAILY JESSICA Administration Atorvastatin Calcium 80 mg 01/19/25 21:00 01/20/25 21:28 Atorvastatin 40 Mg Tablet PO 80 mg HS JESSICA Administration Dextrose 12.5 gm 01/19/25 19:37 Dextrose 50% 25 Gm/50 Ml Syringe IV PUSH PRN PRN Hypoglycemia Protocol Docusate Sodium 100 mg 01/20/25 09:00 01/21/25 09:14 Docusate Sodium 100 Mg Capsule PO Not Given Q12HR JESSICA Ezetimibe 10 mg 01/19/25 21:00 01/20/25 21:28 Ezetimibe 10 Mg Tablet PO 10 mg HS JESSICA Administration Enoxaparin Sodium 40 mg 01/20/25 09:00 01/21/25 09:13 Enoxaparin 40 Mg/0.4 Ml Syringe SUB-Q 40 mg DAILY JESSICA Administration Furosemide 20 mg 01/20/25 09:00 01/21/25 09:10 Furosemide 20 Mg Tablet PO 20 mg BID JESSICA Administration Glucagon 1 mg 01/19/25 19:37 Glucagon For Inj 1 Mg Vial IM PRN PRN Hypoglycemia Protocol Glucose 15 gm 01/19/25 19:37 Glucose Oral Gel 15 Gm Of Glucse In 37.5 Gm Tube PO PRN PRN Hypoglycemia Protocol Cefepime HCl 2 gm/ Sodium 50 mls @ 100 mls/hr 01/19/25 19:00 01/21/25 06:03 Chloride IVPB 100 mls/hr Q12H JESSICA Administration Metronidazole 500 mg in 100 mls @ 100 mls/hr 01/19/25 18:00 01/21/25 12:39 Flagyl 500 Mg/Iso Soln 100 Ml IVPB 100 mls/hr Q8H JESSICA Administration Dextrose 1,000 mls @ 100 mls/hr 01/19/25 19:37 Dextrose 5% 1,000 Ml IVPB PRN PRN Hypoglycemia Protocol Vancomycin HCl 1,750 mg in 500 mls @ 250 mls/hr 01/21/25 08:00 01/21/25 09:13 Vancomycin 1,750 Mg/Ns 500 Ml IVPB 250 mls/hr Q12H JESSICA Administration Insulin Aspart 3 - 6 units 01/20/25 08:00 01/21/25 12:24 Insulin Aspart (*Bkc) 100 Units/Ml SUB-Q Not Given TIDWM JESSICA Protocol Insulin Glargine 40 units 01/19/25 21:00 01/20/25 21:29 Insulin Glargine (*Bkc) 100 Units/Ml SUB-Q 40 units HS JESSICA Administration Losartan Potassium 100 mg 01/20/25 09:00 01/21/25 09:12 Losartan Potassium 100 Mg Tablet PO 100 mg DAILY JESSICA Administration Metoprolol Succinate 75 mg 01/20/25 09:00 01/21/25 09:10 Metoprolol Succinate Ext Rel 25 Mg Tabcr PO 75 mg DAILY JESSICA Administration Potassium Chloride 20 meq 01/19/25 21:00 01/20/25 21:28 Potassium Chloride 20 Meq Er Tablet PO 20 meq HS JESSICA Administration Spironolactone 25 mg 01/20/25 09:00 01/21/25 09:12 Spironolactone 25 Mg Tablet PO 25 mg DAILY JESSICA Administration Radiology Results: ITS Impressions Foot X-Ray 01/19/25 17:30 Impression: No acute fracture or malalignment. Head CT 01/20/25 10:33 IMPRESSION: 1. No acute intracranial pathology. Ankle Brachial Index 01/21/25 12:44 IMPRESSION: Nondiagnostic exam for ABIs. There is significant disparity in the right TBI compared to the left. Consider correlation with dedicated duplex arterial interrogation of the lower extremities. Labs Labs: Laboratory Results - last 24 hr 01/20/25 01/20/25 01/21/25 16:20 21:12 01:02 WBC RBC Hgb Hct MCV MCH MCHC RDW Plt Count MPV Immature Gran % (Auto) Neut % (Auto) Lymph % (Auto) [place] % (Auto) Eos % (Auto) Baso % (Auto) Lymph # (Auto) [place] # (Auto) Eos # (Auto) Baso # (Auto) Abs Immat Gran (auto) Absolute Neuts (auto) Absolute Nucleated RBC Nucleated RBC % Sodium Potassium Chloride Carbon Dioxide Anion Gap BUN Creatinine Estim Creat Clear Calc Estimated GFR Glucose POC Capillary Glucose 240 H 275 H 126 H Calcium Total Bilirubin AST ALT Alkaline Phosphatase C-Reactive Protein Total Protein Albumin Vancomycin Trough 01/21/25 01/21/25 01/21/25 06:59 07:36 11:37 WBC 9.0 RBC 3.77 L Hgb 11.0 L Hct 32.2 L MCV 85.4 MCH 29.2 MCHC 34.2 RDW 12.2 Plt Count 244 MPV 10.3 Immature Gran % (Auto) 0.6 H Neut % (Auto) 62.1 Lymph % (Auto) 21.6 [place] % (Auto) 11.1 H Eos % (Auto) 3.8 Baso % (Auto) 0.8 Lymph # (Auto) 1.95 [place] # (Auto) 1.0 H Eos # (Auto) 0.3 Baso # (Auto) 0.1 Abs Immat Gran (auto) 0.05 H Absolute Neuts (auto) 5.6 Absolute Nucleated RBC 0.000 Nucleated RBC % 0.0 Sodium 138 Potassium 4.3 Chloride 109 H Carbon Dioxide 25 Anion Gap 4 BUN 12 D Creatinine 0.80 Estim Creat Clear Calc 102 Estimated GFR > 60 Glucose 101 POC Capillary Glucose 110 H 162 H Calcium 8.4 Total Bilirubin 0.4 AST 28 ALT 14 Alkaline Phosphatase 98 C-Reactive Protein 3.7 H Total Protein 6.2 L Albumin 3.0 L Vancomycin Trough 13.5
[2025-01-21] MEDS: PHARMACIST COMMUNICATION ORDER 1 EACH XX (15:17)
--- NOTE | 2025-01-21 16:10 | W.PM.PROC2 ---
Procedure Note - Detailed Date of Procedure 01/21/25 Pre-op Diagnosis Diabetic right 2nd toe ulcer Post-op Diagnosis Same Procedure Performed Excisional debridement right 2nd toe ulcer, including skin and subcutaneous tissue, measuring 1 cm x 1 cm x 0.5 cm Surgeon Anali Stout APRN Anesthesia None Indications Patient presented with a diabetic right foot infection with a right 2nd toe ulcer. He has been treated with IV antibiotics and local wound care. Plain films showed no evidence of osteomyelitis. There is necrotic tissue in the wound bed and we are proceeding now with excisional debridement. Findings Right 2nd toe ulcer without purulent drainage noted during debridement. Description of Procedure The patient was in the supine position in the bed. His right foot was elevated on a pillow and sterile prep was carried out over the wound with iodine swabs. I then used scissors for debridement of the yellow necrotic tissue in the wound and carried this down to subcutaneous tissue. The wound bed then appeared pale pink but had a small area of bloody oozing and appeared to be viable tissue. The area of debridement measured 1 cm x 1 cm x 0.5 cm. I did not encounter any purulent drainage. I then digitally inspected the wound and used a long Q-tip to probe. There were no areas of tunneling and no bone exposed at the base of the wound. There was no bleeding noted and a sterile silver gel and gauze dressing was applied. The patient tolerated the procedure well. Estimated Blood Loss 0 Drains No Packing No Pathology None sent Complications None Condition Stable Disposition No change [facility] Billing Surgery - Charge Forward: Surgery Billing
[2025-01-21] MEDS: INSULIN ASPART (*BKC) 100 UNITS/ML SUB-Q ×2 (16:37→16:38)
[2025-01-21] MEDS: EZETIMIBE 10 MG TABLET PO (20:59)
[2025-01-21] MEDS: POTASSIUM CHLORIDE 20 MEQ ER TABLET PO (20:59)
[2025-01-21] MEDS: ATORVASTATIN 40 MG TABLET 80 MG PO (20:59)
[2025-01-21] MEDS: INSULIN GLARGINE (*BKC) 100 UNITS/ML 40 UNITS SUB-Q (21:05)
[2025-01-21 22:00] VITALS: BP 135/69; PULSE 72; RESP 16; TEMP 37; O2SAT 95
[2025-01-22] MEDS: metroNIDAZOLE 500 MG/ISO 100ML 500 MG/100 ML BAG 100 MG IVPB ×3 (02:26→17:25)
[2025-01-22 06:00] VITALS: BP 127/75; PULSE 69; RESP 16; TEMP 36.4; O2SAT 95
[2025-01-22 06:34] LABS: Hematocrit 32.4 % (42.0-52.0); Hemoglobin 10.7 g/dL (14.0-18.0); Immature Granulocyte Percent A 0.8 % (0-0.5); Lymphocytes Absolute Auto 1.92 K/mm3 (0.9-3.2); Mean Corpuscular HGB Conc 33.0 g/dl (32-36); Mean Corpuscular Hemoglobin 29.2 pg (26-34); Mean Corpuscular Volume 88.5 fl (80-100); Nucleated Red Blood Cells Absolute Auto 0.000 K/mm3 (0.0-0.012); Nucleated Red Blood Cells Perc 0.0 % (0.0-0.2); Platelet Count Result 251 k/mm3 (150-375); Red Blood Count 3.66 M/mm3 (4.6-6.20); White Blood Count 7.6 K/mm3 (4.5-10.0)
[2025-01-22] MEDS: CEFEPIME 2 GM in SODIUM CHLORIDE 0.9% IV 50 ML 100 ML IVPB ×2 (06:49→18:24)
[2025-01-22 06:56] LABS: Alanine Aminotransferase 15 U/L (6-50); Albumin Level 2.9 g/dL (3.5-5.1); Alkaline Phosphatase 96 U/L (38-126); Anion Gap 4 mmol/L (4-12); Aspartate Amino Transferase 32 U/L (17-59); Bilirubin,Total 0.3 mg/dL (0.2-1.3); Blood Urea Nitrogen 11 mg/dL (9-20); CRP 3.2 mg/dL (<1.0); Calcium 8.3 mg/dL (8.4-10.2); Carbon Dioxide 26 mmol/L (22-30); Chloride 108 mmol/L (98-107); Estimated CRCL calculation 104 ml/min; Estimated Glomerular Filt Rate > 60; Glucose 104 mg/dL (65-110); Potassium 4.2 mmol/L (3.4-5.0); Sodium 138 mmol/L (137-145); Total Protein 6.0 g/dL (6.3-8.2)
[2025-01-22] MEDS: FUROSEMIDE 20 MG TABLET PO ×2 (08:32→16:17)
[2025-01-22] MEDS: ASPIRIN 81 MG ENTERIC TABLET PO (08:32)
[2025-01-22] MEDS: SPIRONOLACTONE 25 MG TABLET PO (08:32)
[2025-01-22 08:33] VITALS: PULSE 70
[2025-01-22] MEDS: LOSARTAN POTASSIUM 100 MG TABLET PO (08:33)
[2025-01-22] MEDS: METOPROLOL SUCCINATE EXT REL 25 MG TABCR 75 MG PO (08:33)
[2025-01-22] MEDS: ENOXAPARIN 40 MG/0.4 ML SYRINGE SUB-Q (08:34)
[2025-01-22] MEDS: VANCOMYCIN 1,750 MG/NS 500 ML 1,750 MG/500 ML BAG 250 MG IVPB ×2 (08:34→20:59)
[2025-01-22] MEDS: COLLAGENASE OINT 30 GM TUBE 1 APPLIC TOPICAL (08:49)
--- NOTE | 2025-01-22 09:24 | P.PNGS_ITS ---
Progress Note: A&P Assessment and Plan (1) Cellulitis of second toe, right: Code(s): L03.031 - Cellulitis of right toe Status: Acute Assessment and Plan: * Overall improving with IV antibiotics and local wound care. S/p bedside debridement yesterday. 2nd toe ulcer still has some pale yellow tissue at the base of the wound, will switch to Santyl dressing changes for enzymatic debridement. Continue IV antibiotics. Elevated RLE while at rest. He may be able to transition to oral antibiotics and discharge in the next 1-2 days depending on how he improves. (2) Diabetic foot infection: Code(s): E11.628 - Type 2 diabetes mellitus with other skin complications; L08.9 - Local infection of the skin and subcutaneous tissue, unspecified Status: Acute Assessment and Plan: * Improving with conservative management and wound care. See plan above. (3) Peripheral vascular insufficiency: Code(s): I73.9 - Peripheral vascular disease, unspecified Status: Acute Assessment and Plan: * ABIs showed evidence of peripheral vascular insufficiency on the right (4) Type 2 diabetes mellitus: Qualifiers: Diabetes mellitus complication status: with hyperglycemia Diabetes mellitus custodial insulin use: with long term care phlebotomist use Qualified Code(s): E11.65 - Type 2 diabetes mellitus with hyperglycemia; Z79.4 - [facility] (current) use of insulin Code(s): E11.9 - Type 2 diabetes mellitus without complications Status: Chronic Assessment and Plan: * Hemoglobin A1c 12.1. We discussed again today that glycemic control is imperative in the healing process (5) CAD (coronary artery disease): Qualifiers: Associated angina: without angina Coronary Disease-Associated Artery/Lesion type: [place] artery [place] vs. transplanted heart: [place] heart Qualified Code(s): I25.10 - Atherosclerotic heart disease of [place] coronary artery without angina pectoris Code(s): I25.10 - Atherosclerotic heart disease of [place] coronary artery without angina pectoris Status: Chronic (6) Coronary angioplasty status: Code(s): Z98.61 - Coronary angioplasty status Status: Chronic Plan I have discussed the patient's case and plan of care with Dr. Brito. Subjective Subjective Date/Time Seen: 01/22/25 09:24 Patient reports: no new complaints and afebrile Interval history: Patient slept well last night. No changes overnight. No new complaints. Exam Const: General: comfortable and no acute distress Orientation/consciousness: patient oriented x3 Extrem: Other: Right 2nd toe ulcer improved with pink tissue circumferentially at the edges of the wound, but the deepest area at the center of the ulcer still has some pale yellow firm tissue, no bone exposed. Erythema mostly localized at the 2nd toe and improved on the dorsal foot. Diffuse swelling of the right foot 2+ pitting. Objective Data Vital Signs Vital Signs: Vital Signs - 24 hr 01/21/25 13:31 01/21/25 20:00 01/21/25 22:00 Temperature 98.2 F 98.6 F Pulse Rate 72 72 Respiratory Rate 20 16 Blood Pressure 142/80 H 135/69 Pulse Oximetry 95 95 Oxygen Delivery Room Air 01/22/25 06:00 01/22/25 08:33 Temperature 97.6 F Pulse Rate 69 70 Respiratory Rate 16 Blood Pressure 127/75 Pulse Oximetry 95 Oxygen Delivery Intake/Output Intake/Output: Intake & Output 01/19/25 01/20/25 01/21/25 01/22/25 23:59 23:59 23:59 23:59 Intake Total 200 2538 3020 Output Total 1700 1000 Balance 311 256 1582 Meds/Results Medications: Active Medications Generic Name Dose Route Start Last Admin Trade Name Freq PRN Reason Stop Dose Admin Acetaminophen 650 mg 01/19/25 17:54 01/19/25 21:17 Acetaminophen 325 Mg Tablet PO 650 mg Q4H PRN Administration Mild Pain (1-3) or Fever Hydrocodone Bitart/Acetaminophen 1 tab 01/19/25 19:39 Hydrocodone/Acetaminophen (*Crx) 5-325 Mg Tablet PO Q4H PRN Moderate Pain (4-6) Aspirin 81 mg 01/20/25 09:00 01/22/25 08:32 Aspirin 81 Mg Enteric Tablet PO 81 mg DAILY JESSICA Administration Atorvastatin Calcium 80 mg 01/19/25 21:00 01/21/25 20:59 Atorvastatin 40 Mg Tablet PO 80 mg HS JESSICA Administration Collagenase 1 applic 01/22/25 09:00 01/22/25 08:49 Collagenase Oint 30 Gm Tube TOPICAL 1 applic QAM JESSICA Administration Dextrose 12.5 gm 01/19/25 19:37 Dextrose 50% 25 Gm/50 Ml Syringe IV PUSH PRN PRN Hypoglycemia Protocol Docusate Sodium 100 mg 01/20/25 09:00 01/22/25 08:45 Docusate Sodium 100 Mg Capsule PO Not Given Q12HR JESSICA Ezetimibe 10 mg 01/19/25 21:00 01/21/25 20:59 Ezetimibe 10 Mg Tablet PO 10 mg HS JESSICA Administration Enoxaparin Sodium 40 mg 01/20/25 09:00 01/22/25 08:34 Enoxaparin 40 Mg/0.4 Ml Syringe SUB-Q 40 mg DAILY JESSICA Administration Furosemide 20 mg 01/20/25 09:00 01/22/25 08:32 Furosemide 20 Mg Tablet PO 20 mg BID JESSICA Administration Glucagon 1 mg 01/19/25 19:37 Glucagon For Inj 1 Mg Vial IM PRN PRN Hypoglycemia Protocol Glucose 15 gm 01/19/25 19:37 Glucose Oral Gel 15 Gm Of Glucse In 37.5 Gm Tube PO PRN PRN Hypoglycemia Protocol Cefepime HCl 2 gm/ Sodium 50 mls @ 100 mls/hr 01/19/25 19:00 01/22/25 06:49 Chloride IVPB 100 mls/hr Q12H JESSICA Administration Metronidazole 500 mg in 100 mls @ 100 mls/hr 01/19/25 18:00 01/22/25 02:26 Flagyl 500 Mg/Iso Soln 100 Ml IVPB 100 mls/hr Q8H JESSICA Administration Dextrose 1,000 mls @ 100 mls/hr 01/19/25 19:37 Dextrose 5% 1,000 Ml IVPB PRN PRN Hypoglycemia Protocol Vancomycin HCl 1,750 mg in 500 mls @ 250 mls/hr 01/21/25 08:00 01/22/25 08:34 Vancomycin 1,750 Mg/Ns 500 Ml IVPB 250 mls/hr Q12H JESSICA Administration Insulin Aspart 3 - 6 units 01/20/25 08:00 01/22/25 08:46 Insulin Aspart (*Bkc) 100 Units/Ml SUB-Q Not Given TIDWM [facility] Protocol Insulin Aspart 5 units 01/21/25 17:00 01/21/25 16:38 Insulin Aspart (*Bkc) 100 Units/Ml 0.05 units/kg (5 units) 5 units SUB-Q Administration 1200,1700 [facility] Insulin Glargine 40 units 01/19/25 21:00 01/21/25 21:05 Insulin Glargine (*Bkc) 100 Units/Ml SUB-Q 40 units HS JESSICA Administration Losartan Potassium 100 mg 01/20/25 09:00 01/22/25 08:33 Losartan Potassium 100 Mg Tablet PO 100 mg DAILY JESSICA Administration Metoprolol Succinate 75 mg 01/20/25 09:00 01/22/25 08:33 Metoprolol Succinate Ext Rel 25 Mg Tabcr PO 75 mg DAILY JESSICA Administration Potassium Chloride 20 meq 01/19/25 21:00 01/21/25 20:59 Potassium Chloride 20 Meq Er Tablet PO 20 meq HS JESSICA Administration Spironolactone 25 mg 01/20/25 09:00 01/22/25 08:32 Spironolactone 25 Mg Tablet PO 25 mg DAILY JESSICA Administration Radiology Results: ITS Impressions Foot X-Ray 01/19/25 17:30 Impression: No acute fracture or malalignment. Head CT 01/20/25 10:33 IMPRESSION: 1. No acute intracranial pathology. Ankle Brachial Index 01/21/25 12:44 IMPRESSION: Nondiagnostic exam for ABIs. There is significant disparity in the right TBI compared to the left. Consider correlation with dedicated duplex arterial interrogation of the lower extremities. Labs Labs: Laboratory Results - last 24 hr 01/21/25 01/21/25 01/21/25 11:37 16:19 19:51 WBC RBC Hgb Hct MCV MCH MCHC RDW Plt Count MPV Immature Gran % (Auto) Neut % (Auto) Lymph % (Auto) [place] % (Auto) Eos % (Auto) Baso % (Auto) Lymph # (Auto) [place] # (Auto) Eos # (Auto) Baso # (Auto) Abs Immat Gran (auto) Absolute Neuts (auto) Absolute Nucleated RBC Nucleated RBC % Sodium Potassium Chloride Carbon Dioxide Anion Gap BUN Creatinine Estim Creat Clear Calc Estimated GFR Glucose POC Capillary Glucose 162 H 245 H 217 H Calcium Total Bilirubin AST ALT Alkaline Phosphatase C-Reactive Protein Total Protein Albumin 01/22/25 01/22/25 05:16 07:34 WBC 7.6 RBC 3.66 L Hgb 10.7 L Hct 32.4 L MCV 88.5 MCH 29.2 MCHC 33.0 RDW 12.3 Plt Count 251 MPV 11.0 H Immature Gran % (Auto) 0.8 H Neut % (Auto) 57.0 Lymph % (Auto) 25.2 [place] % (Auto) 11.6 H Eos % (Auto) 4.6 H Baso % (Auto) 0.8 Lymph # (Auto) 1.92 [place] # (Auto) 0.9 H Eos # (Auto) 0.4 H Baso # (Auto) 0.1 Abs Immat Gran (auto) 0.06 H Absolute Neuts (auto) 4.3 Absolute Nucleated RBC 0.000 Nucleated RBC % 0.0 Sodium 138 Potassium 4.2 Chloride 108 H Carbon Dioxide 26 Anion Gap 4 BUN 11 Creatinine 0.79 Estim Creat Clear Calc 104 Estimated GFR > 60 Glucose 104 POC Capillary Glucose 118 H Calcium 8.3 L Total Bilirubin 0.3 AST 32 ALT 15 Alkaline Phosphatase 96 C-Reactive Protein 3.2 H Total Protein 6.0 L Albumin 2.9 L
[2025-01-22] MEDS: INSULIN ASPART (*BKC) 100 UNITS/ML SUB-Q ×2 (11:30→17:26)
[2025-01-22 13:46] VITALS: BP 130/68; PULSE 81; RESP 18; TEMP 36.7; O2SAT 99
--- NOTE | 2025-01-22 13:51 | P.PNIM_ITS ---
Progress Note: A&P Assessment and Plan (1) Diabetic foot infection: Code(s): E11.628 - Type 2 diabetes mellitus with other skin complications; L08.9 - Local infection of the skin and subcutaneous tissue, unspecified Status: Acute Assessment and Plan: - presented with swelling and drainage of R 2nd toe - XR R foot no acute fracture or signs of osteo noted - initial WBC 11.7, CRP 8.4 - improving - continue IV cefepime, Flagyl and vancomycin - general surgery consulted - s/p bedside debridement 01/21. Recommended to continue IV antibiotics today. -ABIs nondiagnostic with significant disparity. Obtain arterial Dopplers. - blood cultures pending (2) Type 2 diabetes mellitus: Qualifiers: Diabetes mellitus lobsterman insulin use: with mcfp use Diabetes mellitus complication status: with hyperglycemia Qualified Code(s): E11.65 - Type 2 diabetes mellitus with hyperglycemia; Z79.4 - long-term (current) use of insulin Code(s): E11.9 - Type 2 diabetes mellitus without complications Status: Chronic Assessment and Plan: - Hgb A1c 12.1 01/20/25 - reports compliance with home Lantus. Noncompliant with diabetic diet. - Hold home oral anti-hyperglycemic medications (metformin, glimepiride) - Accu-Cheks a.c. HS - Diabetic diet - continue Lantus 40u, moderate dose SSI. Schedule Novolog 5u with lunch and d inner. Patient likely needs Novolog at discharge. Cautious use with glimepiride. - bed laborer/dietitian consulted (3) Hypertension: Qualifiers: Hypertension type: essential hypertension Qualified Code(s): I10 - Essential (primary) hypertension Code(s): I10 - Essential (primary) hypertension Status: Acute Assessment and Plan: -BP 142/80 -Continue home losartan, lasix, metoprolol, spironolactone, (4) CHF (congestive heart failure): Code(s): I50.9 - Heart failure, unspecified Status: Acute Assessment and Plan: - echo 2019 with EF 47% - Euvolemic -Continue losartan, metoprolol, lasix, Aldactone -Continue potassium replacement (5) Hyperlipidemia: Code(s): E78.5 - Hyperlipidemia, unspecified Status: Acute Assessment and Plan: -Continue statin, Zetia (6) CAD (coronary artery disease): Qualifiers: Coronary Disease-Associated Artery/Lesion type: [place] artery [place] vs. transplanted heart: [place] heart Associated angina: without angina Qualified Code(s): I25.10 - Atherosclerotic heart disease of [place] coronary artery without angina pectoris Code(s): I25.10 - Atherosclerotic heart disease of [place] coronary artery without angina pectoris Status: Chronic Assessment and Plan: - remote history of NSTEMI s/p stents - continue ASA, statin, Zetia, metoprolol (7) Blurry vision: Code(s): H53.8 - Other visual disturbances Status: Acute Assessment and Plan: -Patient complained of new onset blurry vision with near objects/writing in AM 01/20. No double vision and able to see far objects. - no other focal deficits -CT head with no acute process. - not an expected side effect of antibiotics - Denies recent eye exam. Suspect patient is developing age related myopia vs. diabetic retinopathy. He does report his vision is more blurry when his blood sugar is lower. No hypoglycemic events noted. Encouraged close outpatient follow-up for diabetic eye exam. Plan DVT prophylaxis: Lovenox Code status: full code Dispo: 1-2 days pending surgery recs Subjective Date/time seen: 01/22/25 13:51 Interval history: 44-year-old male past medical history of CHF, BC, diabetes, hyperlipidemia and coronary stents presents the hospital with right toe swelling and redness. Patient seen and examined up in chair. General surgery saw patient's morning and felt that toe was improving. Patient states he feels his vision is blurry when his blood sugar is lower. No episodes of hypoglycemia noted. Review of Systems Review of Systems: All systems reviewed & are unremarkable except as noted in HPI and below Exam Narrative: General: NAD Eyes: EOMI ENT: neck supple Cardiovascular: Regular rate and rhythm Respiratory: Clear to auscultation, respirations even and unlabored on RA Gastrointestinal: Soft, non tender Genitourinary: no suprapubic tenderness Musculoskeletal: No edema Skin: warm, dry, R 2nd toe dressing CDI. Erythema extending into foot (improved). Neuro: Alert and oriented x4. Psych: Mood appropriate Objective Data Vital Signs Vital Signs: Vital Signs - 24 hr 01/21/25 20:00 01/21/25 22:00 01/22/25 06:00 Temperature 98.6 F 97.6 F Pulse Rate 72 69 Respiratory Rate 16 16 Blood Pressure 135/69 127/75 Pulse Oximetry 95 95 Oxygen Delivery Room Air 01/22/25 08:33 01/22/25 13:46 Temperature 98.1 F Pulse Rate 70 81 Respiratory Rate 18 Blood Pressure 130/68 Pulse Oximetry 99 Oxygen Delivery Intake/Output Intake/Output: Intake & Output 01/19/25 01/20/25 01/21/25 01/22/25 23:59 23:59 23:59 23:59 Intake Total 200 2538 3020 700 Output Total 1700 1000 Balance 978 963 9470 700 Meds/Results Medications: Active Medications Generic Name Dose Route Start Last Admin Trade Name Freq PRN Reason Stop Dose Admin Acetaminophen 650 mg 01/19/25 17:54 01/19/25 21:17 Acetaminophen 325 Mg Tablet PO 650 mg Q4H PRN Administration Mild Pain (1-3) or Fever Hydrocodone Bitart/Acetaminophen 1 tab 01/19/25 19:39 Hydrocodone/Acetaminophen (*Crx) 5-325 Mg Tablet PO Q4H PRN Moderate Pain (4-6) Aspirin 81 mg 01/20/25 09:00 01/22/25 08:32 Aspirin 81 Mg Enteric Tablet PO 81 mg DAILY JESSICA Administration Atorvastatin Calcium 80 mg 01/19/25 21:00 01/21/25 20:59 Atorvastatin 40 Mg Tablet PO 80 mg HS JESISCA Administration Collagenase 1 applic 01/22/25 09:00 01/22/25 08:49 Collagenase Oint 30 Gm Tube TOPICAL 1 applic QAM JESSICA Administration Dextrose 12.5 gm 01/19/25 19:37 Dextrose 50% 25 Gm/50 Ml Syringe IV PUSH PRN PRN Hypoglycemia Protocol Docusate Sodium 100 mg 01/20/25 09:00 01/22/25 08:45 Docusate Sodium 100 Mg Capsule PO Not Given Q12HR JESSICA Ezetimibe 10 mg 01/19/25 21:00 01/21/25 20:59 Ezetimibe 10 Mg Tablet PO 10 mg HS JESSICA Administration Enoxaparin Sodium 40 mg 01/20/25 09:00 01/22/25 08:34 Enoxaparin 40 Mg/0.4 Ml Syringe SUB-Q 40 mg DAILY JESSICA Administration Furosemide 20 mg 01/20/25 09:00 01/22/25 08:32 Furosemide 20 Mg Tablet PO 20 mg BID JESSICA Administration Glucagon 1 mg 01/19/25 19:37 Glucagon For Inj 1 Mg Vial IM PRN PRN Hypoglycemia Protocol Glucose 15 gm 01/19/25 19:37 Glucose Oral Gel 15 Gm Of Glucse In 37.5 Gm Tube PO PRN PRN Hypoglycemia Protocol Cefepime HCl 2 gm/ Sodium 50 mls @ 100 mls/hr 01/19/25 19:00 01/22/25 06:49 Chloride IVPB 100 mls/hr Q12H JESSICA Administration Metronidazole 500 mg in 100 mls @ 100 mls/hr 01/19/25 18:00 01/22/25 11:00 Flagyl 500 Mg/Iso Soln 100 Ml IVPB 100 mls/hr Q8H JESSICA Administration Dextrose 1,000 mls @ 100 mls/hr 01/19/25 19:37 Dextrose 5% 1,000 Ml IVPB PRN PRN Hypoglycemia Protocol Vancomycin HCl 1,750 mg in 500 mls @ 250 mls/hr 01/21/25 08:00 01/22/25 08:34 Vancomycin 1,750 Mg/Ns 500 Ml IVPB 250 mls/hr Q12H JESSICA Administration Insulin Aspart 3 - 6 units 01/20/25 08:00 01/22/25 11:32 Insulin Aspart (*Bkc) 100 Units/Ml SUB-Q Not Given TIDWM [facility] Protocol Insulin Aspart 5 units 01/21/25 17:00 01/22/25 11:30 Insulin Aspart (*Bkc) 100 Units/Ml 0.05 units/kg (5 units) 5 units SUB-Q Administration 1200,1700 [facility] Insulin Glargine 40 units 01/19/25 21:00 01/21/25 21:05 Insulin Glargine (*Bkc) 100 Units/Ml SUB-Q 40 units HS JESSICA Administration Losartan Potassium 100 mg 01/20/25 09:00 01/22/25 08:33 Losartan Potassium 100 Mg Tablet PO 100 mg DAILY JESSICA Administration Metoprolol Succinate 75 mg 01/20/25 09:00 01/22/25 08:33 Metoprolol Succinate Ext Rel 25 Mg Tabcr PO 75 mg DAILY JESSICA Administration Potassium Chloride 20 meq 01/19/25 21:00 01/21/25 20:59 Potassium Chloride 20 Meq Er Tablet PO 20 meq HS JESSICA Administration Spironolactone 25 mg 01/20/25 09:00 01/22/25 08:32 Spironolactone 25 Mg Tablet PO 25 mg DAILY JESSICA Administration Radiology Results: ITS Impressions Foot X-Ray 01/19/25 17:30 Impression: No acute fracture or malalignment. Head CT 01/20/25 10:33 IMPRESSION: 1. No acute intracranial pathology. Ankle Brachial Index 01/21/25 12:44 IMPRESSION: Nondiagnostic exam for ABIs. There is significant disparity in the right TBI compared to the left. Consider correlation with dedicated duplex arterial interrogation of the lower extremities. Labs Labs: Laboratory Results - last 24 hr 01/21/25 01/21/25 01/22/25 16:19 19:51 05:16 WBC 7.6 RBC 3.66 L Hgb 10.7 L Hct 32.4 L MCV 88.5 MCH 29.2 MCHC 33.0 RDW 12.3 Plt Count 251 MPV 11.0 H Immature Gran % (Auto) 0.8 H Neut % (Auto) 57.0 Lymph % (Auto) 25.2 Edgar % (Auto) 11.6 H Eos % (Auto) 4.6 H Baso % (Auto) 0.8 Lymph # (Auto) 1.92 Edgar # (Auto) 0.9 H Eos # (Auto) 0.4 H Baso # (Auto) 0.1 Abs Immat Gran (auto) 0.06 H Absolute Neuts (auto) 4.3 Absolute Nucleated RBC 0.000 Nucleated RBC % 0.0 Sodium 138 Potassium 4.2 Chloride 108 H Carbon Dioxide 26 Anion Gap 4 BUN 11 Creatinine 0.79 Estim Creat Clear Calc 104 Estimated GFR > 60 Glucose 104 POC Capillary Glucose 245 H 217 H Calcium 8.3 L Total Bilirubin 0.3 AST 32 ALT 15 Alkaline Phosphatase 96 C-Reactive Protein 3.2 H Total Protein 6.0 L Albumin 2.9 L 01/22/25 01/22/25 07:34 11:17 WBC RBC Hgb Hct MCV MCH MCHC RDW Plt Count MPV Immature Gran % (Auto) Neut % (Auto) Lymph % (Auto) Edgar % (Auto) Eos % (Auto) Baso % (Auto) Lymph # (Auto) Edgar # (Auto) Eos # (Auto) Baso # (Auto) Abs Immat Gran (auto) Absolute Neuts (auto) Absolute Nucleated RBC Nucleated RBC % Sodium Potassium Chloride Carbon Dioxide Anion Gap BUN Creatinine Estim Creat Clear Calc Estimated GFR Glucose POC Capillary Glucose 118 H 127 H Calcium Total Bilirubin AST ALT Alkaline Phosphatase C-Reactive Protein Total Protein Albumin Quality VTE Prophylaxis VTE prophylaxis: pharmacologic ordered
[2025-01-22 20:17] VITALS: BP 148/77; PULSE 75; RESP 16; TEMP 36.4; O2SAT 95
[2025-01-22] MEDS: ATORVASTATIN 40 MG TABLET 80 MG PO (20:59)
[2025-01-22] MEDS: EZETIMIBE 10 MG TABLET PO (20:59)
[2025-01-22] MEDS: POTASSIUM CHLORIDE 20 MEQ ER TABLET PO (20:59)
[2025-01-22] MEDS: INSULIN GLARGINE (*BKC) 100 UNITS/ML 40 UNITS SUB-Q (21:00)
[2025-01-23] MEDS: metroNIDAZOLE 500 MG/ISO 100ML 500 MG/100 ML BAG 100 MG IVPB ×2 (01:08→11:48)
[2025-01-23 02:42] LABS: Influenza A QL RT-PCR Negative (Negative); Influenza B QL RT-PCR Negative (Negative); RSV RNA, RT-PCR Negative (Negative); SARS-CoV-2 RNA PCR Negative (Negative)
[2025-01-23 05:23] VITALS: BP 116/59; PULSE 67; RESP 16; TEMP 36.4; O2SAT 93
[2025-01-23] MEDS: CEFEPIME 2 GM in SODIUM CHLORIDE 0.9% IV 50 ML 100 ML IVPB (06:01)
[2025-01-23 06:44] LABS: Hematocrit 32.7 % (42.0-52.0); Hemoglobin 10.9 g/dL (14.0-18.0); Immature Granulocyte Percent A 0.6 % (0-0.5); Lymphocytes Absolute Auto 1.82 K/mm3 (0.9-3.2); Mean Corpuscular HGB Conc 33.3 g/dl (32-36); Mean Corpuscular Hemoglobin 29.1 pg (26-34); Mean Corpuscular Volume 87.4 fl (80-100); Nucleated Red Blood Cells Absolute Auto 0.000 K/mm3 (0.0-0.012); Nucleated Red Blood Cells Perc 0.0 % (0.0-0.2); Platelet Count Result 269 k/mm3 (150-375); Red Blood Count 3.74 M/mm3 (4.6-6.20); White Blood Count 7.8 K/mm3 (4.5-10.0)
[2025-01-23 07:07] LABS: Alanine Aminotransferase 19 U/L (6-50); Albumin Level 2.9 g/dL (3.5-5.1); Alkaline Phosphatase 90 U/L (38-126); Anion Gap 3 mmol/L (4-12); Aspartate Amino Transferase 47 U/L (17-59); Bilirubin,Total 0.4 mg/dL (0.2-1.3); Blood Urea Nitrogen 11 mg/dL (9-20); CRP 1.7 mg/dL (<1.0); Calcium 8.5 mg/dL (8.4-10.2); Carbon Dioxide 29 mmol/L (22-30); Chloride 106 mmol/L (98-107); Estimated CRCL calculation 95 ml/min; Estimated Glomerular Filt Rate > 60; Glucose 112 mg/dL (65-110); Potassium 4.5 mmol/L (3.4-5.0); Sodium 138 mmol/L (137-145); Total Protein 6.0 g/dL (6.3-8.2)
[2025-01-23] MEDS: LOSARTAN POTASSIUM 100 MG TABLET PO (09:06)
[2025-01-23] MEDS: ASPIRIN 81 MG ENTERIC TABLET PO (09:06)
[2025-01-23] MEDS: VANCOMYCIN 1,750 MG/NS 500 ML 1,750 MG/500 ML BAG 250 MG IVPB (09:06)
[2025-01-23] MEDS: FUROSEMIDE 20 MG TABLET PO (09:06)
[2025-01-23 09:07] VITALS: PULSE 69
[2025-01-23] MEDS: SPIRONOLACTONE 25 MG TABLET PO (09:07)
[2025-01-23] MEDS: METOPROLOL SUCCINATE EXT REL 25 MG TABCR 75 MG PO (09:07)
[2025-01-23] MEDS: DOCUSATE SODIUM 100 MG CAPSULE PO (09:07)
[2025-01-23] MEDS: ENOXAPARIN 40 MG/0.4 ML SYRINGE SUB-Q (09:08)
--- NOTE | 2025-01-23 11:59 | PM.DS ---
DS: Admitting Diagnosis Discharge Date 01/23/2025 Admitting Diagnosis Diabetic foot infection, hypertension CHF hyperlipidemia, type 2 diabetes, coronary syndrome DS: Discharge Diagnosis Discharge Diagnosis (1) Diabetic foot infection: Code(s): E11.628 - Type 2 diabetes mellitus with other skin complications; L08.9 - Local infection of the skin and subcutaneous tissue, unspecified Status: Acute (2) Cellulitis of second toe, right: Code(s): L03.031 - Cellulitis of right toe Status: Acute (3) Type 2 diabetes mellitus: Qualifiers: Diabetes mellitus senior care insulin use: with senior care use Diabetes mellitus complication status: with hyperglycemia Qualified Code(s): E11.65 - Type 2 diabetes mellitus with hyperglycemia; Z79.4 - terminal superintendent (current) use of insulin Code(s): E11.9 - Type 2 diabetes mellitus without complications Status: Chronic (4) Obesity: Code(s): E66.9 - Obesity, unspecified Status: Chronic (5) Peripheral vascular insufficiency: Code(s): I73.9 - Peripheral vascular disease, unspecified Status: Chronic (6) CAD (coronary artery disease): Qualifiers: Coronary Disease-Associated Artery/Lesion type: [place] artery [place] vs. transplanted heart: [place] heart Associated angina: without angina Qualified Code(s): I25.10 - Atherosclerotic heart disease of [place] coronary artery without angina pectoris Code(s): I25.10 - Atherosclerotic heart disease of [place] coronary artery without angina pectoris Status: Chronic (7) Hypertension: Qualifiers: Hypertension type: essential hypertension Qualified Code(s): I10 - Essential (primary) hypertension Code(s): I10 - Essential (primary) hypertension Status: Chronic (8) CHF (congestive heart failure): Code(s): I50.9 - Heart failure, unspecified Status: Chronic Assessment and Plan: Prior echocardiogram shows EF 47% with hypokinesis portions the left ventricle (9) Hyperlipidemia: Code(s): E78.5 - Hyperlipidemia, unspecified Status: Chronic DS: Summary Hospital Course Reason for hospitalization: Right 2nd toe infection Hospital Course: This is a 44-year-old male patient with history poorly controlled type 2 diabetes with significant peripheral neuropathy who is admitted to the hospital for diabetic foot ulcer and cellulitis of the right 2nd toe. He was treated with IV antibiotics vancomycin cefepime and metronidazole. Surgery evaluated patient. There was no osteomyelitis and wound was managed with santal topical. Improvement noted over the course several days of antibiotics. He also had better glycemic control with sliding scale insulin in addition to his Basaglar. While in the hospital his glimepiride and were held. Surgery saw patient today discharged clindamycin 300 mg 3 times a day for 11 days. He is also supposed to follow-up in the office of Dr. Brito on Tuesday01/28/2025. We checked with his insurance and they cover Humalog as far as sliding scale would go. Prescription written and sent to his pharmacy. Follow-up primary care also stressed regarding his multiple medical comorbidities. While patient was in the hospital he had an arterial Doppler completed that shows peripheral arterial disease with maintained flow to the affected lower extremity. At this there is no consideration amputation or need for vascular intervention per conversation with surgery. Patient and significant other assured that they have adequate supplies mealtime testing blood sugar in the only need they at this time is the prescription for sliding scale. Status at Discharge Cognitive/behavioral status at discharge: Awake alert oriented and pleasant Functional status at discharge: independent ambulation Overall status at discharge: patient is progressing back to baseline Time Spent with Patient Time attestation: Total time spent providing and/or coordinating discharge services: 45 minutes Time spent: Greater than 30 minutes Exam Narrative: GENERAL: Well-appearing, well-nourished, and in no acute distress. HEAD: Normocephalic, atraumatic. ENT:? Mucous membranes moist. CHEST: Clear to auscultation.? No respiratory distress. HEART: Regular rate and rhythm. ? Normal peripheral pulses. ABDOMEN: Soft, nontender, nondistended. EXTREMITIES: Normal range of motion. Right 2nd toe erythematous with mild skin peeling and a ulcer on the distal inferior tip of the toe. Mild edema to the right foot appears to be improving. SKIN: Warm dry normal color NEURO: Alert and oriented x3. PSYCH: Normal mood and affect DS: Data Data Completed and Pending Labs on day of discharge: Labs from last 24 hours 01/23/25 01/23/25 01/23/25 11:36 07:32 06:03 WBC 7.8 RBC 3.74 L Hgb 10.9 L Hct 32.7 L MCV 87.4 MCH 29.1 MCHC 33.3 RDW 12.3 Plt Count 269 MPV 10.6 H Immature Gran % (Auto) 0.6 H Neut % (Auto) 58.7 Lymph % (Auto) 23.4 [place] % (Auto) 12.1 H Eos % (Auto) 4.2 Baso % (Auto) 1.0 Lymph # (Auto) 1.82 [place] # (Auto) 0.9 H Eos # (Auto) 0.3 Baso # (Auto) 0.1 Abs Immat Gran (auto) 0.05 H Absolute Neuts (auto) 4.6 Absolute Nucleated RBC 0.000 Nucleated RBC % 0.0 Sodium 138 Potassium 4.5 Chloride 106 Carbon Dioxide 29 Anion Gap 3 L BUN 11 Creatinine 0.87 Estim Creat Clear Calc 95 Estimated GFR > 60 Glucose 112 H POC Capillary Glucose 164 H 128 H Calcium 8.5 Total Bilirubin 0.4 AST 47 ALT 19 Alkaline Phosphatase 90 C-Reactive Protein 1.7 H Total Protein 6.0 L Albumin 2.9 L Vancomycin Trough Influenza A (RT-PCR) Influenza B (RT-PCR) RSV (RT-PCR) SARS-CoV-2 RNA (RT-PCR) 01/23/25 01/22/25 01/22/25 02:00 19:30 18:49 WBC RBC Hgb Hct MCV MCH MCHC RDW Plt Count MPV Immature Gran % (Auto) Neut % (Auto) Lymph % (Auto) [place] % (Auto) Eos % (Auto) Baso % (Auto) Lymph # (Auto) [place] # (Auto) Eos # (Auto) Baso # (Auto) Abs Immat Gran (auto) Absolute Neuts (auto) Absolute Nucleated RBC Nucleated RBC % Sodium Potassium Chloride Carbon Dioxide Anion Gap BUN Creatinine Estim Creat Clear Calc Estimated GFR Glucose POC Capillary Glucose 156 H Calcium Total Bilirubin AST ALT Alkaline Phosphatase C-Reactive Protein Total Protein Albumin Vancomycin Trough 17.8 Influenza A (RT-PCR) Negative Influenza B (RT-PCR) Negative RSV (RT-PCR) Negative SARS-CoV-2 RNA (RT-PCR) Negative 01/22/25 16:46 WBC RBC Hgb Hct MCV MCH MCHC RDW Plt Count MPV Immature Gran % (Auto) Neut % (Auto) Lymph % (Auto) [place] % (Auto) Eos % (Auto) Baso % (Auto) Lymph # (Auto) [place] # (Auto) Eos # (Auto) Baso # (Auto) Abs Immat Gran (auto) Absolute Neuts (auto) Absolute Nucleated RBC Nucleated RBC % Sodium Potassium Chloride Carbon Dioxide Anion Gap BUN Creatinine Estim Creat Clear Calc Estimated GFR Glucose POC Capillary Glucose 166 H Calcium Total Bilirubin AST ALT Alkaline Phosphatase C-Reactive Protein Total Protein Albumin Vancomycin Trough Influenza A (RT-PCR) Influenza B (RT-PCR) RSV (RT-PCR) SARS-CoV-2 RNA (RT-PCR) Preliminary micro results at discharge 01/19/25 17:24 Blood Culture - Preliminary Blood 01/19/25 16:16 Blood Culture - Preliminary Blood Discharge Plan Discharge Attending physician on discharge: Jose Brito Consulting providers: Ofelia Bedoya; Jose Brito Discharging Clinician: Roselyn Bennett Anticipated Discharge Date/Time: 01/23/25 13:39 Patient Disposition: Home Activity: july shower Diet: diabetic Wound Care Instructions: follow printed instructions Discharge Instructions: Wear walking boot throughout the day. Continue local wound care with daily application of Santyl to the right 2nd toe wound. Cover with gauze dressing and secure with tape. Wash foot (including wound) daily with mild soap. Antibiotic prescription has been sent to your pharmacy. Please pick these up and complete full course of these. Follow-up in the General surgery office on Tuesday01/28/2025. Our clinic should call you to confirm time. If you do not hear from us within the next 3 days please call the office at [phone]. Call our office or present to the emergency department if you develop any new or worsening pain, increased redness, increased drainage, fever/chills, nausea/vomiting. Patient Instructions: Antibiotic Form, How to Stop Smoking (ED) Patient Language: Khmer Stand Alone Forms: General Discharge Information Follow-up/Referrals: Jose Brito MD [Physician, General Surgery] - 01/28/25 Discharge Medications: New clindamycin HCl [Cleocin HCl] 300 mg capsule 300 mg PO TID Qty: 33 0RF Rx Instructions: Please take 1 tablet 3 times a day for the next 11 days. Santyl 250 unit/gram ointment 1 applic topical QAM Qty: 1 0RF insulin lispro [Humalog KwikPen Insulin] 100 unit/mL insulin pen 1 sliding scale dose subcut USEASDIRECTD Qty: 15 0RF Rx Instructions: dose 3 times daily before meals, 3 units for 150-199, 4 units 200-249, 5 units 250-299, 6 units 300-399, 8 units if over 400 Continued furosemide [Lasix] 20 mg tablet 20 mg PO BID Qty: 30 0RF ezetimibe 10 mg tablet 10 mg PO HS losartan 100 mg tablet 100 mg PO DAILY potassium chloride [Klor-Con M20] 20 mEq tablet,ER particles/crystals 20 meq PO HS metformin 500 mg tablet 1,000 mg PO BID Patient Comments: TAKES 2 IN THE MORNING AND 1 AT NIGHT atorvastatin 80 mg tablet 80 mg PO HS insulin glargine [Basaglar KwikPen U-100 Insulin] 100 unit/mL (3 mL) insulin pen 50 unit subcut HS aspirin [Adult Aspirin Regimen] 81 mg tablet,delayed release (DR/EC) 81 mg PO DAILY (DME) Advocate Test Strips Strip See Rx Instructions .ROUTE .MEDSUPPLY Qty: 300 5RF Rx Instructions: TID As directed to check blood sugar (DME) blood-glucose meter [Blood Glucose Monitoring] Kit See Rx Instructions .ROUTE .MEDSUPPLY Qty: 1 0RF Rx Instructions: TID As directed to check blood sugar (DME) lancets [BD Ultra Fine Lancets] 33 gauge misc See Rx Instructions .ROUTE .MEDSUPPLY Qty: 300 5RF Rx Instructions: TID As directed to check blood sugar spironolactone 25 mg tablet 25 mg PO DAILY Qty: 90 1RF (DME) pen needle, diabetic [1st Tier Unifine Pentips] 31 gauge x 3/16 needle See Rx Instructions .ROUTE .MEDSUPPLY Qty: 300 4RF Rx Instructions: use daily for lantus injection As directed metoprolol succinate 50 mg tablet extended release 24 hr 75 mg PO DAILY Qty: 135 3RF glimepiride 4 mg tablet 8 mg PO QAM Qty: 180 3RF Date of admission: 01/21/25 16:06 Primary Care Provider: YvonneNe Admitting Provider: Chung Michele Attending physician on admission: Cuhng Micheel Condition: Stable Quality VTE Prophylaxis VTE prophylaxis: pharmacologic ordered Prior echocardiogram showed an EF of 47% none more recent on file Hospitalist MIPS Heart Failure (Exclusion) Patient has history of Heart Transplant or Left Ventricular Assistive Device?: No IF YES, STOP HERE Heart Failure (Qualifier) Patient has current or prior documentation of LVEF less than or equal to 40%, or mod/servere depressed LVSF?: No IF NO, STOP HERE
[2025-01-23] MEDS: INSULIN ASPART (*BKC) 100 UNITS/ML SUB-Q (12:32)
--- NOTE | 2025-01-23 13:29 | P.PNGS_ITS ---
Progress Note: A&P Assessment and Plan (1) Cellulitis of second toe, right: Code(s): L03.031 - Cellulitis of right toe Status: Acute Assessment and Plan: * R 2nd toe continues to improve in appearance with IV antibiotics and local wound care. Ulcer still has some pale yellow slough, but no purulence or surrounding redness. Continue Santyl dressing changes for enzymatic debridement. Will switch to oral antibiotics upon discharge. Surgically stable for discharge home. Patient to follow up in general surgery office on 01/28/25. (2) Diabetic foot infection: Code(s): E11.628 - Type 2 diabetes mellitus with other skin complications; L08.9 - Local infection of the skin and subcutaneous tissue, unspecified Status: Acute Assessment and Plan: * Improving with conservative management and wound care. See plan above. (3) Peripheral vascular insufficiency: Code(s): I73.9 - Peripheral vascular disease, unspecified Status: Acute Assessment and Plan: * ABIs showed evidence of peripheral vascular insufficiency on the right (4) Type 2 diabetes mellitus: Qualifiers: Diabetes mellitus joint terminal attack controller insulin use: with half-way use Diabetes mellitus complication status: with hyperglycemia Qualified Code(s): E11.65 - Type 2 diabetes mellitus with hyperglycemia; Z79.4 - buttermilk drier operator (current) use of insulin Code(s): E11.9 - Type 2 diabetes mellitus without complications Status: Chronic Assessment and Plan: * Hemoglobin A1c 12.1. We discussed again today that glycemic control is imperative in the healing process (5) CAD (coronary artery disease): Qualifiers: Coronary Disease-Associated Artery/Lesion type: [place] artery [place] vs. transplanted heart: [place] heart Associated angina: without angina Qualified Code(s): I25.10 - Atherosclerotic heart disease of [place] coronary artery without angina pectoris Code(s): I25.10 - Atherosclerotic heart disease of [place] coronary artery without angina pectoris Status: Chronic (6) Coronary angioplasty status: Code(s): Z98.61 - Coronary angioplasty status Status: Chronic Plan I have discussed the patient's case and plan of care with Dr. Brito. Subjective Subjective Date/Time Seen: 01/23/25 13:29 Patient reports: no new complaints, feels better and tolerating a regular diet Interval history: Patient is doing well today. No complaints of pain. No acute changes overnight. Exam Extrem: General: no clubbing, cyanosis or edema and edema Right lower extremity: foot (Mild or pink erythema distal foot, 2nd toe mildly erythematous and swollen) Details: abnormal to inspection (Superficial eschar distal and middle phalanx) Details: erythematous and vascular exam Details: normal capillary refill; dorsalis pedis pulse absent, posterior tibial pulse absent, not cool and no cyanosis; no tenderness and no crepitus Other: Right 2nd toe ulcer improved with pink tissue circumferentially at the edges of the wound, but the deepest area at the center of the ulcer still has some pale yellow firm tissue, no bone exposed. Minimal erythema to tip of R 2nd toe. Diffuse swelling of the right foot 2+ pitting. Distal pulses palpable. Objective Data Vital Signs Vital Signs: Vital Signs - 24 hr 01/22/25 13:46 01/22/25 20:00 01/22/25 20:17 Temperature 98.1 F 97.6 F Pulse Rate 81 75 Respiratory Rate 18 16 Blood Pressure 130/68 148/77 H Pulse Oximetry 99 95 Oxygen Delivery Room Air 01/23/25 05:23 01/23/25 08:00 01/23/25 09:07 Temperature 97.5 F L Pulse Rate 67 69 Respiratory Rate 16 Blood Pressure 116/59 L Pulse Oximetry 93 Oxygen Delivery Room Air Intake/Output Intake/Output: Intake & Output 01/20/25 01/21/25 01/22/25 01/23/25 23:59 23:59 23:59 23:59 Intake Total 2538 3020 3440 1030 Output Total 1700 1000 Balance 838 2020 3440 1030 Meds/Results Medications: Active Medications Generic Name Dose Route Start Last Admin Trade Name Freq PRN Reason Stop Dose Admin Acetaminophen 650 mg 01/19/25 17:54 01/19/25 21:17 Acetaminophen 325 Mg Tablet PO 650 mg Q4H PRN Administration Mild Pain (1-3) or Fever Hydrocodone Bitart/Acetaminophen 1 tab 01/19/25 19:39 Hydrocodone/Acetaminophen (*Crx) 5-325 Mg Tablet PO Q4H PRN Moderate Pain (4-6) Aspirin 81 mg 01/20/25 09:00 01/23/25 09:06 Aspirin 81 Mg Enteric Tablet PO 81 mg DAILY JESSICA Administration Atorvastatin Calcium 80 mg 01/19/25 21:00 01/22/25 20:59 Atorvastatin 40 Mg Tablet PO 80 mg HS JESSICA Administration Collagenase 1 applic 01/22/25 09:00 01/23/25 10:47 Collagenase Oint 30 Gm Tube TOPICAL Not Given QAM JESSICA Dextrose 12.5 gm 01/19/25 19:37 Dextrose 50% 25 Gm/50 Ml Syringe IV PUSH PRN PRN Hypoglycemia Protocol Docusate Sodium 100 mg 01/20/25 09:00 01/23/25 09:07 Docusate Sodium 100 Mg Capsule PO 100 mg Q12HR JESSICA Administration Ezetimibe 10 mg 01/19/25 21:00 01/22/25 20:59 Ezetimibe 10 Mg Tablet PO 10 mg HS JESSICA Administration Enoxaparin Sodium 40 mg 01/20/25 09:00 01/23/25 09:08 Enoxaparin 40 Mg/0.4 Ml Syringe SUB-Q 40 mg DAILY JESSICA Administration Furosemide 20 mg 01/20/25 09:00 01/23/25 09:06 Furosemide 20 Mg Tablet PO 20 mg BID JESSICA Administration Glucagon 1 mg 01/19/25 19:37 Glucagon For Inj 1 Mg Vial IM PRN PRN Hypoglycemia Protocol Glucose 15 gm 01/19/25 19:37 Glucose Oral Gel 15 Gm Of Glucse In 37.5 Gm Tube PO PRN PRN Hypoglycemia Protocol Cefepime HCl 2 gm/ Sodium 50 mls @ 100 mls/hr 01/19/25 19:00 01/23/25 06:01 Chloride IVPB 100 mls/hr Q12H JESSICA Administration Metronidazole 500 mg in 100 mls @ 100 mls/hr 01/19/25 18:00 01/23/25 11:48 Flagyl 500 Mg/Iso Soln 100 Ml IVPB 100 mls/hr Q8H JESSICA Administration Dextrose 1,000 mls @ 100 mls/hr 01/19/25 19:37 Dextrose 5% 1,000 Ml IVPB PRN PRN Hypoglycemia Protocol Vancomycin HCl 1,750 mg in 500 mls @ 250 mls/hr 01/21/25 08:00 01/23/25 09:06 Vancomycin 1,750 Mg/Ns 500 Ml IVPB 250 mls/hr Q12H JESSICA Administration Insulin Aspart 3 - 6 units 01/20/25 08:00 01/23/25 12:06 Insulin Aspart (*Bkc) 100 Units/Ml SUB-Q Not Given TIDWM JESSICA Protocol Insulin Aspart 5 units 01/21/25 17:00 01/23/25 12:32 Insulin Aspart (*Bkc) 100 Units/Ml 0.05 units/kg (5 units) 5 units SUB-Q Administration 1200,1700 [facility] Insulin Glargine 40 units 01/19/25 21:00 01/22/25 21:00 Insulin Glargine (*Bkc) 100 Units/Ml SUB-Q 40 units HS JESSICA Administration Losartan Potassium 100 mg 01/20/25 09:00 01/23/25 09:06 Losartan Potassium 100 Mg Tablet PO 100 mg DAILY JESSICA Administration Metoprolol Succinate 75 mg 01/20/25 09:00 01/23/25 09:07 Metoprolol Succinate Ext Rel 25 Mg Tabcr PO 75 mg DAILY JESSICA Administration Potassium Chloride 20 meq 01/19/25 21:00 01/22/25 20:59 Potassium Chloride 20 Meq Er Tablet PO 20 meq HS JESSICA Administration Spironolactone 25 mg 01/20/25 09:00 01/23/25 09:07 Spironolactone 25 Mg Tablet PO 25 mg DAILY JESSICA Administration Radiology Results: ITS Impressions Foot X-Ray 01/19/25 17:30 Impression: No acute fracture or malalignment. Head CT 01/20/25 10:33 IMPRESSION: 1. No acute intracranial pathology. Ankle Brachial Index 01/21/25 12:44 IMPRESSION: Nondiagnostic exam for ABIs. There is significant disparity in the right TBI compared to the left. Consider correlation with dedicated duplex arterial interrogation of the lower extremities. Chest X-Ray 01/23/25 07:50 IMPRESSION: 1. No acute cardiopulmonary findings given portable technique. Duplex Scan Lower Extremity Artery 01/23/25 10:59 IMPRESSION: 1. No evident hemodynamically significant stenosis in either lower limb with normal triphasic waveforms with brisk systolic upstrokes throughout the arteries of the bilateral lower limbs. 2. Nonspecific mild right inguinal lymphadenopathy which is most likely reactive. Correlate clinically and could consider either clinical follow-up with physical exam, follow-up ultrasound in 6 months or ultrasound-guided core needle biopsy depending on level of clinical concern. Labs Labs: Laboratory Results - last 24 hr 01/22/25 01/22/25 01/22/25 16:46 18:49 19:30 WBC RBC Hgb Hct MCV MCH MCHC RDW Plt Count MPV Immature Gran % (Auto) Neut % (Auto) Lymph % (Auto) [place] % (Auto) Eos % (Auto) Baso % (Auto) Lymph # (Auto) [place] # (Auto) Eos # (Auto) Baso # (Auto) Abs Immat Gran (auto) Absolute Neuts (auto) Absolute Nucleated RBC Nucleated RBC % Sodium Potassium Chloride Carbon Dioxide Anion Gap BUN Creatinine Estim Creat Clear Calc Estimated GFR Glucose POC Capillary Glucose 166 H 156 H Calcium Total Bilirubin AST ALT Alkaline Phosphatase C-Reactive Protein Total Protein Albumin Vancomycin Trough 17.8 Influenza A (RT-PCR) Influenza B (RT-PCR) RSV (RT-PCR) SARS-CoV-2 RNA (RT-PCR) 01/23/25 01/23/25 01/23/25 02:00 06:03 07:32 WBC 7.8 RBC 3.74 L Hgb 10.9 L Hct 32.7 L MCV 87.4 MCH 29.1 MCHC 33.3 RDW 12.3 Plt Count 269 MPV 10.6 H Immature Gran % (Auto) 0.6 H Neut % (Auto) 58.7 Lymph % (Auto) 23.4 [place] % (Auto) 12.1 H Eos % (Auto) 4.2 Baso % (Auto) 1.0 Lymph # (Auto) 1.82 [place] # (Auto) 0.9 H Eos # (Auto) 0.3 Baso # (Auto) 0.1 Abs Immat Gran (auto) 0.05 H Absolute Neuts (auto) 4.6 Absolute Nucleated RBC 0.000 Nucleated RBC % 0.0 Sodium 138 Potassium 4.5 Chloride 106 Carbon Dioxide 29 Anion Gap 3 L BUN 11 Creatinine 0.87 Estim Creat Clear Calc 95 Estimated GFR > 60 Glucose 112 H POC Capillary Glucose 128 H Calcium 8.5 Total Bilirubin 0.4 AST 47 ALT 19 Alkaline Phosphatase 90 C-Reactive Protein 1.7 H Total Protein 6.0 L Albumin 2.9 L Vancomycin Trough Influenza A (RT-PCR) Negative Influenza B (RT-PCR) Negative RSV (RT-PCR) Negative SARS-CoV-2 RNA (RT-PCR) Negative 01/23/25 11:36 WBC RBC Hgb Hct MCV MCH MCHC RDW Plt Count MPV Immature Gran % (Auto) Neut % (Auto) Lymph % (Auto) [place] % (Auto) Eos % (Auto) Baso % (Auto) Lymph # (Auto) [place] # (Auto) Eos # (Auto) Baso # (Auto) Abs Immat Gran (auto) Absolute Neuts (auto) Absolute Nucleated RBC Nucleated RBC % Sodium Potassium Chloride Carbon Dioxide Anion Gap BUN Creatinine Estim Creat Clear Calc Estimated GFR Glucose POC Capillary Glucose 164 H Calcium Total Bilirubin AST ALT Alkaline Phosphatase C-Reactive Protein Total Protein Albumin Vancomycin Trough Influenza A (RT-PCR) Influenza B (RT-PCR) RSV (RT-PCR) SARS-CoV-2 RNA (RT-PCR)
[2025-01-23 14:00] VITALS: BP 131/70; PULSE 70; RESP 16; TEMP 36.4; O2SAT 95
--- NOTE | 2025-01-28 15:49 | PCCDE ---
01/28/25: DM educator courtesy follow up call completed. Pt denies questions, states the BG is running pretty good. Had Wound Care appt earlier today. Declines interest in OP DSMT/MNT.
== END 2025-01-23 15:50 | disposition home or self-care (01) | DRG 624 ==
LOC: ANHED 17:53 → ANH3MEDSUR 18:43
PROVIDERS: Nurse Practitioner; Nurse Practitioner Gerontology; Physician Assistant; Admitting Provider Internal Medicine; Emergency Provider Emergency Medicine; PCP Family Medicine; Visit Provider Nurse Practitioner
DX: E11.628 Type 2 diabetes mellitus with other skin complications (principal); L03.031 Cellulitis of right toe; E11.65 Type 2 diabetes mellitus with hyperglycemia; E11.42 Type 2 diabetes mellitus with diabetic polyneuropathy; E66.9 Obesity, unspecified; E11.51 Type 2 diabetes mellitus with diabetic peripheral angiopathy without gangrene; E78.5 Hyperlipidemia, unspecified; F17.290 Nicotine dependence, other tobacco product, uncomplicated; H53.8 Other visual disturbances; I11.0 Hypertensive heart disease with heart failure; I25.2 Old myocardial infarction; I25.10 Atherosclerotic heart disease of native coronary artery without angina pectoris; I50.9 Heart failure, unspecified; Z79.82 Long term (current) use of aspirin; Z20.822 Contact with and (suspected) exposure to COVID-19; Z79.84 Long term (current) use of oral hypoglycemic drugs; Z79.4 Long term (current) use of insulin; Z95.5 Presence of coronary angioplasty implant and graft
CPT/HCPCS: 36415; 70450; 71045; 73630; 80048; 80053; 80202; 82948; 83036; 83605; 85025; 86140; 87040; 87070; 87075; 87186; 87637; 93922; 93925; 96365; 96375; 99212; 99285; A9270; G0463; J0692; J1650; J1815; J1836; J2543; J3373